=== PATIENT | female | born 1950 | race Hispanic/Latino ===

== ENCOUNTER 2016-09-29 11:47 | Emergency (ER) | payer MEDICAID ==
[~2016-09-29] VITALS: Ht 157.5 cm; Wt 49.9 kg
[2016-09-29] MEDS ORDERED: MIRTAZAPINE15 MG ORAL (12:34)
[2016-09-29] MEDS ORDERED: ACETAMINOPHEN325 M1 ORAL (12:34)
[2016-09-29] MEDS ORDERED: ATIVAN1 MG ORAL (12:34)
[2016-09-29] MEDS ORDERED: MILK OF MA400 MG/51 ORAL (12:34)
[2016-09-29] MEDS ORDERED: DOCUSATE SODIU100 MG ORAL (12:34)
[2016-09-29] MEDS ORDERED: SYNTHROID100 MCG ORAL (12:34)
[2016-09-29] MEDS ORDERED: HALOPERIDOL1 MG ORAL (12:34)
[2016-09-29] MEDS ORDERED: GLYBURIDE5 MG PO (12:34)
[2016-09-29] MEDS ORDERED: LORazepam Inj 2mg/ml 1ml IM ONE ×2 (13:15→18:45)
[2016-09-29] MEDS ORDERED: DiphenhydrAMINE 50mg/ml Inj ONE (13:36)
[2016-09-29] MEDS ORDERED: Haloperidol 5mg/ml Inj ONE (13:36)
[2016-09-29] MEDS ORDERED: DiphenhydrAMINE 50mg/ml Inj IM ONE (14:00)
[2016-09-29] MEDS ORDERED: Haloperidol 5mg/ml Inj IM ONE (14:00)
--- NOTE | 2016-09-29 15:24 | Diagnostic Imaging Report ---
Indication: PAIN head trauma status post fall at care home Technique: spiral acquisitions obtained through the brain. Angled axial and coronal 5 x 5 mm slices were reconstructed. No IV contrast utilized. Radiation dose was minimized using automated exposure control Total dose length product 1386 mGycm. CTDIvol(s) 12/12/2013 mGy Comparison: 12/12/2013 FINDINGS: No acute hemorrhage or edema. No mass effect or midline shift. There is age-related enlargement of the ventricles and extra axial CSF spaces. There is periventricular deep white matter ischemic change. Questionable lacunar infarct in left basal ganglia. Normal juares-white differentiation. Visualized orbits are unremarkable. Visualized sinuses are unremarkable. Intact calvarium. Increased attenuation of the left posterior parietal soft tissues is evident previously and therefore presumed on the basis of chronic scarring. No definite acute soft tissue abnormality demonstrated. There is hypoaeration of the mastoid air cells bilaterally. The visualized sinuses are unremarkable. IMPRESSION: Chronic and age-related changes. Negative for acute intracranial bleed or mass effect The CT scanner at [facility] is accredited by the [employer] and the scans are performed using protocols designed to limit radiation exposure to as low as reasonably achievable to attain images of sufficient resolution adequate for diagnostic evaluation
[2016-09-29 15:51] VITALS: BP 107/73
--- NOTE | 2016-09-29 16:13 | Emergency Room Report ---
History of Present Illness General Chief Complaint: General Complaint Source: Patient, Medical Record Present Illness HPI 65-year-old female presents emergency department for new onset swelling to the posterior scalp and complain of right knee pain. Pt is unable to rate her severity of pain. in uzbek she states her right knee "hurts a lot" she denies pain to the posterior scalp despite palpable soft tissue swelling. Patient was from nursing facility where she apparently fell out of the bed. Patient has a history of paranoid schizophrenia, dementia, agitation, failure to thrive type 2 diabetes and depression. She and is an unreliable historian, therefore a HPI and ROS is limited. information was gathered from nursing facility face-sheet. Allergies: Coded Allergies: PENICILLINS (Verified Allergy, Mild, 06/13/13) Patient History Past Medical History: see triage record, psych hx Pertinent Family History: none Now: No Immunizations: UTD Reviewed Nursing Documentation: PMH: Agreed, PSxH: Agreed Nursing Documentation-PMH Past Medical History: No History, Except For Hx Pacemaker: No - FTT, OA, ANEMIA Hx Diabetes: Yes - THIS AM BS 152 Hx Gastrointestinal Problems: Yes - REFLUX, Hx Seizures: Yes Review of Systems All Other Systems: limited - pt is a poor historian, with hx of paranoid schizophrenia, and does not answer questions completely. Physical Exam Vital Signs Date Time Temp Pulse Resp B/P Pulse Ox O2 Delivery O2 Flow Rate FiO2 09/29/16 11:53 98.2 96 18 140/82 97 Room Air Sp02 EP Interpretation: reviewed, normal General Appearance: no apparent distress, alert, GCS 15, non-toxic Head: normocephalic, other - palpable soft tissue swelling to the left posterior occipital area Eyes: bilateral eye PERRL, bilateral eye normal inspection ENT: hearing grossly normal, normal pharynx, no angioedema, normal voice Neck: full range of motion, supple/symm/no masses Respiratory: chest non-tender, lungs clear, normal breath sounds, speaking full sentences Cardiovascular #1: regular rate, rhythm, no edema, normal capillary refill Musculoskeletal: back normal, gait/station normal, normal range of motion, tender - the anterior right knee, pt. withdrawls with palpation and screams "dolor" no erythema, no swelling, no bruises, no swelling or abrasions Neurologic: alert, responsive, motor strength/tone normal, sensory intact, speech normal Psychiatric: mood/affect normal, anxious, other - pt has rambling speech, does not answer questions appropriately, difficult to maintain attention. Skin: normal color, no rash, warm/dry, well hydrated, other - palpable soft tissue swelling to the left posterior occipital area, no bruises, no erythema, no abrasions noted. Medical Decision Making PA Attestation Dr. Sullivan is my supervising Physician whom patient management has been discussed with. Diagnostic Impression: Primary Impression: Contusion Qualified Codes: S00.93XA - Contusion of unspecified part of head, initial encounter ER Course 65-year-old female presents emergency department for new onset swelling to the posterior scalp and complain of right knee pain. Pt is unable to rate her severity of pain. in uzbek she states her right knee "hurts a lot" she denies pain to the posterior scalp despite palpable soft tissue swelling. Patient was from nursing facility where she apparently fell out of the bed. Patient has a history of paranoid schizophrenia, dementia, agitation, failure to thrive type 2 diabetes and depression. She and is an unreliable historian, therefore a HPI and ROS is limited. information was gathered from nursing facility face-sheet. Ddx considered but are not limited to Fracture, dislocation, contusion, Sprain/ Strain/Spasm, subdural hematoma, intracranial bleed Vital signs: are WNL, pt. is afebrile H&PE are most consistent with soft tissue contusions. ORDERS: - CT Head No Contrast: No evidence of acute fracture, hemorrhage, or intracranial process, chronic age-related changes Per: official radiology report. - X-ray Right knee 5 views - Limited study, negative for fx, Dislocation, or acute injury per official radiology report. ED INTERVENTIONS: - Ativan 2mg -benadryl 50mg -Haldol 5mg DISCHARGE: At this time pt. is stable for d/c back to nursing facility.. Will coordinate transport back and provide printed patient care instructions, and any necessary prescriptions. Care plan and follow up instructions have been discussed with the patient prior to discharge. Last Vital Signs Date Time Temp Pulse Resp B/P Pulse Ox O2 Delivery O2 Flow Rate FiO2 09/29/16 15:51 96.2 75 16 107/73 97 Room Air Disposition: ASSISTED LIVING Condition: Stable Scripts Acetaminophen* (TYLENOL EXTRA STRENGTH*) 500 Mg Tablet 500 MG ORAL Q6H Y for Pain Scale (6-10), #20 TAB 0 Refills Prov: Malgorzata Blandon 09/29/16 Referrals: NON PHYSICIAN (PCP) Patient Instructions: Contusion, [id number] Additional Instructions: Take medications as directed. Follow up with PCP in 3-5 days Return sooner to ED if new symptoms occur, or current symptoms become worse. - Please note that this Emergency Department Report was dictated using [employer] tower operator technology software, occasionally this can lead to erroneous entry secondary to interpretation by the dictation equipment. Malgorzata Blandon Sep 29, 2016 16:13
[2016-09-29] MEDS ORDERED: TYLENOL EXTRA500 MG ORAL (16:14)
[2016-09-29 17:16] VITALS: BP 105/71
[2016-09-29 17:20] VITALS: BP 105/71
--- NOTE | 2016-09-30 08:31 | Diagnostic Imaging Report ---
Indication: PAIN Technique: 3 views of the right knee Comparison: None Findings:Exam is very limited, as patient was unable to extend the knee. No definite acute fractures. No definite dislocations. The joint spaces are grossly preserved Impression:Very limited exam. No gross acute bony trauma
== END 2016-09-29 19:29 | disposition home or self-care (01) ==
LOC: EDBD 11:47 → EMR 12:28
DX: S00.03XA Contusion of scalp, initial encounter (principal); M25.561 Pain in right knee; W06.XXXA Fall from bed, initial encounter; Y92.122 Bedroom in nursing home as the place of occurrence of the external cause; E11.9 Type 2 diabetes mellitus without complications; K21.9 Gastro-esophageal reflux disease without esophagitis; D64.9 Anemia, unspecified; R62.7 Adult failure to thrive; Z88.0 Allergy status to penicillin; F20.0 Paranoid schizophrenia
CPT/HCPCS: 70450; 73562; 96372; 99284; J1200; J1630

== ENCOUNTER 2018-04-18 16:46 | Inpatient (IN) | payer MEDICAID ==
[~2018-04-18] VITALS: Ht 157.5 cm; Wt 44.9 kg
[~2018-04-18 16:46] MED LIST: ACETAMINOPHEN325 M1 ORAL; ATIVAN1 MG ORAL; DOCUSATE SODIU100 MG ORAL; GLYBURIDE5 MG PO; HALOPERIDOL1 MG ORAL; MILK OF MA400 MG/51 ORAL; MIRTAZAPINE15 MG ORAL; SYNTHROID100 MCG ORAL; TYLENOL EXTRA500 MG ORAL
[2018-04-18 16:50] VITALS: BP 156/112
[2018-04-18] MEDS ORDERED: LORazepam Inj 2mg/ml 1ml ONE (17:00)
[2018-04-18] MEDS ORDERED: LORazepam Inj 2mg/ml 1ml IM ONE (17:00)
[2018-04-18] MEDS ORDERED: DiphenhydrAMINE 50mg/ml Inj IM ONE (17:00)
[2018-04-18] MEDS ORDERED: DiphenhydrAMINE 50mg/ml Inj ONE (17:01)
[2018-04-18] MEDS ORDERED: MULTIVITAMINS1 EAC8 ORAL (17:28)
[2018-04-18] MEDS ORDERED: CRANBERRY405 M1 PO (17:28)
--- NOTE | 2018-04-18 17:29 | Emergency Room Report ---
History of Present Illness General Chief Complaint: Altered Level of Consciousness Source: Medical Record, EMS Present Illness HPI 67-year-old female who has a history of anemia diabetes major depressive disorder. Schizophrenia presenting from custodial for failure to thrive, has been refusing medications as well as refusing to eat. Reportedly has not lost a lot of weight. Patient is screaming, extremely combative, not providing much history at all Allergies: Coded Allergies: PENICILLINS (Verified Allergy, Mild, 06/13/13) Patient History Past Medical History: see triage record Past Surgical History: none Pertinent Family History: none Now: No Reviewed Nursing Documentation: PMH: Agreed; PSxH: Agreed Nursing Documentation-PMH Past Medical History: No History, Except For Hx Pacemaker: No - FTT, OA, ANEMIA Hx Diabetes: Yes Hx Gastrointestinal Problems: Yes - REFLUX, Hx Seizures: Yes Review of Systems All Other Systems: limited - pt not giving history/psychotic Physical Exam Sp02 EP Interpretation: reviewed, normal General Appearance: alert, moderate distress, cachetic Head: normocephalic, atraumatic Eyes: bilateral eye normal inspection, bilateral eye PERRL, bilateral eye EOMI ENT: normal ENT inspection, normal pharynx, normal voice, moist mucus membranes Neck: normal inspection, full range of motion, supple Respiratory: normal inspection, lungs clear, normal breath sounds, no respiratory distress, no retraction, no wheezing, speaking full sentences, chest symmetrical Cardiovascular #1: tachycardia Cardiovascular #2: 2+ radial (R), 2+ radial (L) Gastrointestinal: normal inspection, non tender, soft, non-distended, no guarding Musculoskeletal: normal inspection, back normal, normal range of motion, non- tender Neurologic: other - aox1 not giving history, combative/hitting staff, moving all four ext Psychiatric: other - anxious and psychotic Skin: normal inspection, normal color, no rash, warm/dry, well hydrated, normal turgor Medical Decision Making Diagnostic Impression: Primary Impression: UTI (urinary tract infection) Additional Impressions: Altered mental status Sepsis ER Course 59-year-old female, failure to thrive, para Schizophrenia also very agitated and psychotic DDX: Dehydration, R disturbance, UTI, infection, intracranial bleed, exacerbation of psychiatric disease/psychosis Plan: Obtain labs, ua, EKG, CXR CT head ER course: got abx for UTI and fluids Disposition: Patient is to be admitted to [facility] D/W hospitalist DR BARBOSA Please note that this Emergency Department Report was dictated using [employer] pediatric technology software, occasionally this can lead to erroneous entry secondary to interpretation by the dictation equipment. EKG Diagnostic Results EP Interpretation: Yes Rate: tachy Rhythm: NSR ST Segments: No acute changes ASA given to patient: No Rhythm Strip EP Interpretation: Yes Rate:116 Rhythm: NSR, no PVCs, no ectopy Chest X-ray CXR: Ordered: Yes 1 view Indication: Altered mental status EP interpretation: Yes Interpretation: No consolidation, no effusion, no PTX, no acute cardiopulmonary disease Impression: No acute disease Electronically signed by Augusto Fernandez MD Laboratory Tests Test 04/18/18 17:10 White Blood Count 10.3 K/UL (4.8-10.8) Red Blood Count 5.03 M/UL (4.20-5.40) Hemoglobin 15.5 G/DL (12.0-16.0) Hematocrit 45.7 % (37.0-47.0) Mean Corpuscular Volume 91 FL (80-99) Mean Corpuscular Hemoglobin 30.8 PG (27.0-31.0) Mean Corpuscular Hemoglobin Concent 33.9 G/DL (32.0-36.0) Red Cell Distribution Width 12.0 % (11.6-14.8) Platelet Count 362 K/UL (150-450) Mean Platelet Volume 7.0 FL (6.5-10.1) Neutrophils (%) (Auto) 51.9 % (45.0-75.0) Lymphocytes (%) (Auto) 39.4 % (20.0-45.0) Monocytes (%) (Auto) 5.0 % (1.0-10.0) Eosinophils (%) (Auto) 2.7 % (0.0-3.0) Basophils (%) (Auto) 1.1 % (0.0-2.0) Urine Color Brown Urine Appearance Slightly cloudy Urine pH 6 (4.5-8.0) Urine Specific [place] 1.025 (1.005-1.035) Urine Protein 2+ (NEGATIVE) H Urine Glucose (UA) Negative (NEGATIVE) Urine Ketones 3+ (NEGATIVE) H Urine Blood 2+ (NEGATIVE) H Urine Nitrite Positive (NEGATIVE) H Urine Bilirubin 1+ (NEGATIVE) H Urine Ictotest Negative (NEGATIVE) Urine Urobilinogen 8 MG/DL (0.0-1.0) H Urine Leukocyte Esterase 1+ (NEGATIVE) H Urine RBC 5-10 /HPF (0 - 2) H Urine WBC 2-4 /HPF (0 - 2) Urine Squamous Epithelial Cells Few /LPF (NONE/OCC) Urine Amorphous Sediment Few /LPF (NONE) H Urine Bacteria Many /HPF (NONE) H Sodium Level 148 MMOL/L (136-145) H Potassium Level 4.8 MMOL/L (3.5-5.1) Chloride Level 106 MMOL/L (98-107) Carbon Dioxide Level 27 MMOL/L (21-32) Anion Gap 16 mmol/L (5-15) H Blood Urea Nitrogen 22 mg/dL (7-18) H Creatinine 0.9 MG/DL (0.55-1.30) Estimate Glomerular Filtration Rate > 60 mL/min (>60) Glucose Level 89 MG/DL (74-106) Lactic Acid Level 4.60 mmol/L (0.4-2.0) H Calcium Level 10.9 MG/DL (8.5-10.1) H Total Bilirubin 0.6 MG/DL (0.2-1.0) Aspartate Amino Transferase (AST) 22 U/L (15-37) Alanine Aminotransferase (ALT) 23 U/L (12-78) Alkaline Phosphatase 97 U/L (46-116) Total Creatine Kinase 63 U/L (26-308) Troponin I 0.000 ng/mL (0.000-0.056) Total Protein 8.5 G/DL (6.4-8.2) H Albumin 4.1 G/DL (3.4-5.0) Globulin 4.4 g/dL Albumin/Globulin Ratio 0.9 (1.0-2.7) L CT/MRI/US Diagnostic Results CT/MRI/US Diagnostic Results : Imaging Test Ordered: CT HEAD Impression NEGATIVE Disposition: ADMITTED INPATIENT Condition: Augusto Kapadia M.D. Apr 18, 2018 17:29
[2018-04-18 17:31] LABS: APPEARANCE,URINE SLIGHTLY CLOUDY; BILIRUBIN, URINE 1+ (NEGATIVE); COLOR,URINE BROWN; GLUCOSE, URINE (UA) NEGATIVE (NEGATIVE); KETONES,URINE 3+ (NEGATIVE); LEUKOCYTE ESTERASE ,URINE 1+ (NEGATIVE); NITRITE,URINE POSITIVE (NEGATIVE); PH,URINE 6 (4.5-8.0); PROTEIN,URINE 2+ (NEGATIVE); UROBILINOGEN,URINE 8 MG/DL (0.0-1.0)
[2018-04-18 17:33] LABS: BASOPHILS % (AUTO) 1.1 % (0.0-2.0); EOSINOPHILS % (AUTO) 2.7 % (0.0-3.0); HEMATOCRIT 45.7 % (37.0-47.0); HEMOGLOBIN 15.5 G/DL (12.0-16.0); LYMPHOCYTES % (AUTO) 39.4 % (20.0-45.0); MEAN CORPUSCULAR VOLUME 91 FL (80-99); NEUTROPHILS % (AUTO) 51.9 % (45.0-75.0); PLATELET COUNT 362 K/UL (150-450); RED BLOOD COUNT 5.03 M/UL (4.20-5.40); WHITE BLOOD COUNT 10.3 K/UL (4.8-10.8)
[2018-04-18 18:01] LABS: ALANINE AMINOTRANSFERASE 23 U/L (12-78); ALBUMIN 4.1 G/DL (3.4-5.0); ALBUMIN/GLOBULIN RATIO 0.9 (1.0-2.7); ALKALINE PHOSPHATASE 97 U/L (46-116); ANION GAP 16 mmol/L (5-15); ASPARTATE AMINO TRANSFERASE 22 U/L (15-37); BILIRUBIN,TOTAL 0.6 MG/DL (0.2-1.0); BLOOD UREA NITROGEN 22 mg/dL (7-18); CALCIUM 10.9 MG/DL (8.5-10.1); CARBON DIOXIDE 27 MMOL/L (21-32); CHLORIDE 106 MMOL/L (98-107); CREATINE KINASE 63 U/L (26-308); CREATININE 0.9 MG/DL (0.55-1.30); POTASSIUM 4.8 MMOL/L (3.5-5.1); SODIUM 148 MMOL/L (136-145)
[2018-04-18 19:16] VITALS: BP 111/64
[2018-04-18] MEDS ORDERED: cefTRIAXone 1 GM in NS 55 ML IVPB ONE (19:30)
[2018-04-18 21:01] VITALS: BP 108/64
[2018-04-18 21:54] VITALS: BP 116/84
[2018-04-18] MEDS ORDERED: LORazepam Inj 2mg/ml 1ml IM PRN (23:45)
[2018-04-18] MEDS ORDERED: Milk of Magnesia 30ml Ud ORAL PRN (23:45)
[2018-04-18] MEDS ORDERED: LORazepam Inj 2mg/ml 1ml IV PRN (23:45)
[2018-04-19] VITALS: BP 108/66
[2018-04-19] MEDS: LORazepam Inj 2mg/ml 1ml IM PRN ×2 (03:57→10:27)
[2018-04-19 04:00] VITALS: BP 114/69
[2018-04-19] MEDS: Haloperidol 5mg/ml Inj IM PRN ×2 (05:11→10:26)
[2018-04-19] MEDS: NovoLOG Insulin Flexpen SUBQ SCH ×4 (06:30→21:15)
[2018-04-19 08:23] LABS: BASOPHILS % (AUTO) 0.7 % (0.0-2.0); EOSINOPHILS % (AUTO) 2.6 % (0.0-3.0); HEMATOCRIT 38.5 % (37.0-47.0); LYMPHOCYTES % (AUTO) 27.8 % (20.0-45.0); MEAN CORPUSCULAR VOLUME 91 FL (80-99); MONOCYTES % (AUTO) 5.1 % (1.0-10.0); NEUTROPHILS % (AUTO) 63.8 % (45.0-75.0); PLATELET COUNT 263 K/UL (150-450); RED BLOOD COUNT 4.21 M/UL (4.20-5.40); RED CELL DISTRIBUTION WIDTH 12.1 % (11.6-14.8); WHITE BLOOD COUNT 7.1 K/UL (4.8-10.8)
[2018-04-19] MEDS: Heparin 5000 units/ml inj SUBQ SCH ×2 (08:32→21:39)
[2018-04-19] MEDS: Multivitamins W/Minerals 15 ML UDC ORAL SCH (08:32)
[2018-04-19] MEDS: Docusate 100mg cap ORAL SCH (08:33)
[2018-04-19 08:45] LABS: ALANINE AMINOTRANSFERASE 16 U/L (12-78); ALBUMIN 3.3 G/DL (3.4-5.0); ALBUMIN/GLOBULIN RATIO 0.8 (1.0-2.7); ALKALINE PHOSPHATASE 82 U/L (46-116); ANION GAP 10 mmol/L (5-15); ASPARTATE AMINO TRANSFERASE 21 U/L (15-37); BILIRUBIN,TOTAL 0.4 MG/DL (0.2-1.0); BLOOD UREA NITROGEN 19 mg/dL (7-18); CALCIUM 9.6 MG/DL (8.5-10.1); CARBON DIOXIDE 27 MMOL/L (21-32); CHLORIDE 107 MMOL/L (98-107); CREATININE 0.8 MG/DL (0.55-1.30); POTASSIUM 4.4 MMOL/L (3.5-5.1); SODIUM 144 MMOL/L (136-145)
[2018-04-19 08:56] VITALS: BP 130/69
--- NOTE | 2018-04-19 09:17 | Diagnostic Imaging Report ---
Indications: Altered mental status Technique: Spiral acquisitions obtained through the brain. Angled axial and coronal 5 x 5 mm slices were reconstructed. Total dose length product 1393.68 mGycm. CTDI vol(s) 70.38 mGy. Dose reduction achieved using automated exposure control Comparison: 12/12/2013 Findings: There is age-related enlargement of the ventricles and extra axial CSF spaces. There is some periventricular deep white matter low-attenuation. No acute intracranial hemorrhage or edema. No mass effect nor midline shift. Previously demonstrated scalp contusion is no longer evident. The mastoids are underpneumatized. There is calvarial hyperostosis again demonstrated. Calvarium is intact. Visualized orbits and sinuses are unremarkable. Impression: Age-related volume loss Negative for acute intracranial bleed or mass effect This agrees with the preliminary interpretation provided by the emergency room physician The CT scanner at [facility] is accredited by the [employer] and the scans are performed using protocols designed to limit radiation exposure to as low as reasonably achievable to attain images of sufficient resolution adequate for diagnostic evaluation.
--- NOTE | 2018-04-19 11:28 | Diagnostic Imaging Report ---
Indication: Reason For Exam: AMS Technique: One view of the chest Comparison: Findings: Lungs and pleural spaces are clear. Heart size is normal Impression: No acute process
[2018-04-19 12:00] VITALS: BP 108/75
[2018-04-19 16:00] VITALS: BP 110/72
--- NOTE | 2018-04-19 16:34 | Cardiology Report ---
APPROVED REPORT EKG Measurement Heart [id number] Normal sinus rhythm Normal ECG
[2018-04-19 20:00] VITALS: BP 115/74
--- NOTE | 2018-04-19 20:45 | History and Physical Report ---
DATE OF ADMISSION: 04/19/2018 CHIEF COMPLAINT: Patient with altered mental status, tachycardia, and hypotension. HISTORY OF PRESENT ILLNESS: A pleasant 67-year-old female with extensive past medical history, which includes psychosis, diabetes, and major depression had been refusing to eat and has been refusing medication also. She is diabetic and on evaluation, the patient was found to be tachycardia with heart rate greater than 150 and hypovolemic and had urinary tract infection and was started on Rocephin and subsequently admitted for further evaluation and treatment. The patient has been very psychotic and not cooperate. The patient does not have any history of PE or DVT. No melena. No known malignancy. No significant change in her weight. PAST MEDICAL HISTORY: Significant for diabetes as mentioned and depression, anemia, schizophrenia. MEDICATIONS: The patient was on Colace 100 mg p.o. daily, multivitamin daily, insulin sliding scale, and also glyburide 5 mg p.o. daily, levothyroxine 100 mcg p.o. daily, Lorazepam 1 mg q.4 hours p.r.n., and Tylenol p.r.n. ALLERGIES: Penicillin. Reaction is mild dating back to 06/13/2013. FAMILY HISTORY: Not available. REVIEW OF SYSTEMS: Cannot be obtained. PHYSICAL EXAM: VITAL SIGNS: Temperature is 97.4, pulse of 63, respiratory rate of 20, blood pressure 114/69, and O2 saturation 97%. HEENT: Pupils equal, round, and reactive. Conjunctiva clear. Oropharynx, dry mucous membranes. NECK: No jugular venous distention. Trachea midline. LYMPHATICS: No adenopathy. LUNGS: Clear to auscultation. No wheezing. CARDIOVASCULAR: Regular rate. S1 and S2. ABDOMEN: Soft. Bowel sounds present. EXTREMITIES: Mild contracture. NEUROLOGIC: Localizes to pain. Does not follow commands. RECTAL AND GENITAL: Deferred. SKIN: Intact. LABORATORY DATA: WBC was 10.3, hemoglobin 13.5, and platelet count of 362,000. Her chemistry, sodium 148, potassium 4.9, chloride 106, bicarb of 27, BUN of 22, creatinine of 0.9, glucose 89, and calcium 10.9. AST 22, ALT 23, and alkaline phosphatase 97. Troponin 0. Protein 8.5. Albumin 4.1. Her chest x-ray, no acute infiltrate. She had a CT of the head done and there was no acute process seen. No intracranial bleed or mass effect. She did have age-related volume loss. On her UA, she had positive nitrites and leukocyte esterase was positive. She had 5 to 10 rbc and 2 to 4 wbc. IMPRESSION: 1. Worsening psychosis. 2. Failure to thrive. 3. Hypovolemia. 4. Altered mental status. 5. Diabetes mellitus. 6. Constipation. 7. Hypothyroidism. 8. Tachycardia secondary to hypovolemia. PLAN: The patient will have intravenous hydration and we will obtain Psychiatry consult. The patient may need a G-tube. She will also be on DVT prophylaxis with heparin. Isaias Christopher M.D. DR: OLGA JOB#: [id number] CC:
[2018-04-19] MEDS: D5 1/2NS 1,000 ML IV SCH (21:38)
--- NOTE | 2018-04-19 21:45 | History and Physical Report ---
DATE OF ADMISSION: 04/18/2018 NOTE: INCOMPLETE DICTATION CHIEF COMPLAINT: The patient with tachycardia, confusion, and urinary tract infection. HISTORY OF PRESENT ILLNESS: A 67-year-old female, whom I have known for the past 10 years, was at prison when she developed altered mental status with tachycardia, heart rate greater than 150, hypotension, and was septic when admitted to the emergency room. Isaias Christopher M.D. DR: OLGA JOB#: [id number] CC:
--- NOTE | 2018-04-19 23:05 | Consultation ---
History of Present Illness General Chief Complaint: Altered Level of Consciousness Present Illness HPI 67-year-old female who has a history of anemia diabetes,Schizophrenia, and depression presenting from half-way for failure to thrive, has been refusing medications and to eat. The pt was agitated and disorganized the pt is not taking her medications nor eating. the daughter is involved in her care. She stated that the pt has hx of mental illness. the pt is still in restraints. Allergies: Coded Allergies: PENICILLINS (Verified Allergy, Mild, 06/13/13) Medication History Scheduled Glyburide (Glyburide), 5 MG PO DAILY, (Reported) Levothyroxine Sodium* (Synthroid*), 100 MCG ORAL DAILY, (Reported) Multivitamin With Minerals (Multivitamins With Minerals*), 1 TAB ORAL DAILY, ( Reported) Scheduled PRN Acetaminophen* (Acetaminophen 325MG Tablet*), 650 MG ORAL Q4H PRN for For Pain, (Reported) Acetaminophen* (Tylenol Extra Strength*), 500 MG ORAL Q6H PRN for Pain Scale (6- 10) Docusate Sodium* (Docusate Sodium*), 100 MG ORAL DAILY PRN for Constipation, ( Reported) Magnesium Hydroxide* (Milk Of Magnesia*), 30 ML ORAL DAILY PRN for Constipation, (Reported) Miscellaneous Medications Cranberry Extract (Cranberry), 405 MG PO, (Reported) Discontinued Medications Haloperidol* (Haldol*), 2.5 MG ORAL BID PRN for Agitation, (Reported) Discontinued Reason: MD discontinued med Lorazepam* (Ativan*), 1 MG ORAL EVERY 12 HOURS PRN for For Anxiety, (Reported) Discontinued Reason: MD discontinued med Mirtazapine* (Remeron*), 15 MG ORAL BEDTIME, (Reported) Discontinued Reason: Pt stopped taking med Patient History Limited by: language barrier, medical condition History Provided By: Patient, Medical Record, PMD Healthcare decision maker Silke Méndez, daughter Resuscitation status Full Code Advanced Directive on File No Past Medical/Surgical History Past Medical/Surgical History: (1) Hypokalemia (2) Schizophrenia (3) Encounter for generalized patient complaints (4) Contusion (5) Dehydration (6) Failure to thrive (7) Severe malnutrition (8) Encounter for PEG (percutaneous endoscopic gastrostomy) Review of Systems Psychiatric: Reports: anxiety, depressed feelings, emotional problems, hallucinations Physical Exam General Appearance: alert, confused, agitated Last 24 Hour Vital Signs Date Time Temp Pulse Resp B/P (MAP) Pulse Ox O2 Delivery O2 Flow Rate FiO2 04/19/18 16:00 97.0 70 19 110/72 (85) 99 04/19/18 16:00 70 04/19/18 12:00 87 04/19/18 12:00 97.0 98 20 108/75 (86) 98 04/19/18 09:00 Room Air 04/19/18 08:56 97.0 72 19 130/69 (89) 98 04/19/18 08:00 86 04/19/18 04:00 97.4 88 20 114/69 (84) 97 04/19/18 04:00 63 04/19/18 00:00 97.7 68 17 108/66 (80) 97 04/19/18 00:00 66 Intake and Output 04/18/18 04/19/18 19:00 07:00 Intake Total 240 ml Balance 240 ml Intake Oral 240 ml # Voids 1 Laboratory Tests Test 04/19/18 07:25 White Blood Count 7.1 K/UL (4.8-10.8) Red Blood Count 4.21 M/UL (4.20-5.40) Hemoglobin 13.0 G/DL (12.0-16.0) Hematocrit 38.5 % (37.0-47.0) Mean Corpuscular Volume 91 FL (80-99) Mean Corpuscular Hemoglobin 30.9 PG (27.0-31.0) Mean Corpuscular Hemoglobin Concent 33.7 G/DL (32.0-36.0) Red Cell Distribution Width 12.1 % (11.6-14.8) Platelet Count 263 K/UL (150-450) Mean Platelet Volume 6.9 FL (6.5-10.1) Neutrophils (%) (Auto) 63.8 % (45.0-75.0) Lymphocytes (%) (Auto) 27.8 % (20.0-45.0) Monocytes (%) (Auto) 5.1 % (1.0-10.0) Eosinophils (%) (Auto) 2.6 % (0.0-3.0) Basophils (%) (Auto) 0.7 % (0.0-2.0) Sodium Level 144 MMOL/L (136-145) Potassium Level 4.4 MMOL/L (3.5-5.1) Chloride Level 107 MMOL/L (98-107) Carbon Dioxide Level 27 MMOL/L (21-32) Anion Gap 10 mmol/L (5-15) Blood Urea Nitrogen 19 mg/dL (7-18) H Creatinine 0.8 MG/DL (0.55-1.30) Estimat Glomerular Filtration Rate > 60 mL/min (>60) Glucose Level 90 MG/DL (74-106) Hemoglobin A1c 6.7 % (4.3-6.0) H Calcium Level 9.6 MG/DL (8.5-10.1) Total Bilirubin 0.4 MG/DL (0.2-1.0) Aspartate Amino Transf (AST/SGOT) 21 U/L (15-37) Alanine Aminotransferase (ALT/SGPT) 16 U/L (12-78) Alkaline Phosphatase 82 U/L (46-116) Total Protein 7.4 G/DL (6.4-8.2) Albumin 3.3 G/DL (3.4-5.0) L Globulin 4.1 g/dL Albumin/Globulin Ratio 0.8 (1.0-2.7) L Height (Feet): 5 Height (Inches): 2.00 Weight (Pounds): 99 Medications Current Medications Medications (Trade) Dose Ordered Sig/Shanta Route PRN Reason Start Time Stop Time Status Last Admin Dose Admin Acetaminophen (Tylenol) 650 mg Q4H PRN ORAL Mild Pain/Temp > 100.5 04/18/18 23:45 05/18/18 23:44 Dextrose (Dextrose 50%) 25 ml Q30M PRN IV Hypoglycemia 04/18/18 23:45 05/18/18 23:44 Dextrose (Dextrose 50%) 50 ml Q30M PRN IV Hypoglycemia 04/18/18 23:45 05/18/18 23:44 04/19/18 16:58 Dextrose/Sodium Chloride 1,000 ml @ 100 mls/hr Q10H IV 04/19/18 19:15 05/19/18 19:14 04/19/18 21:38 Docusate Sodium (Colace) 100 mg DAILY ORAL 04/19/18 09:00 05/19/18 08:59 Glyburide (Diabeta) 5 mg BIAC ORAL 04/19/18 06:30 05/19/18 06:29 Haloperidol Lactate (Haldol) 5 mg Q4HR PRN IM Agitation 04/18/18 23:45 05/18/18 23:44 04/19/18 10:26 Heparin Sodium (Porcine) (Heparin 5000 units/ml) 5,000 units EVERY 12 HOURS SUBQ 04/19/18 09:00 05/19/18 08:59 04/19/18 21:39 Insulin Aspart (NovoLOG) BEFORE MEALS AND HS SUBQ 04/19/18 06:30 05/19/18 06:29 Levothyroxine Sodium (Synthroid) 100 mcg DAILY@0630 ORAL 04/19/18 06:30 05/19/18 06:29 Lorazepam (Ativan 2mg/ml 1ml) 1 mg Q4H PRN IV Restlessness 04/19/18 03:45 04/25/18 23:44 Lorazepam (Ativan 2mg/ml 1ml) 2 mg Q4H PRN IM For Anxiety 04/19/18 03:45 04/25/18 23:44 04/19/18 10:27 Magnesium Hydroxide (Mom) 30 ml HSPRN PRN ORAL Constipation 04/18/18 23:45 05/18/18 23:44 Multivitamins (Multivitamins W/ Minerals 15ml Liquid) 15 ml DAILY ORAL 04/19/18 09:00 05/19/18 08:59 Ondansetron HCl (Zofran) 4 mg Q6H PRN IVP Nausea & Vomiting 04/18/18 23:45 05/18/18 23:44 Assessment/Plan Problem List: (1) Failure to thrive (2) Schizophrenia Assessment/Plan haldol im prn zyprexa haldol dec cont restraints. Birdie Fortune MD Apr 19, 2018 23:05
[2018-04-20] VITALS: BP 139/73
[2018-04-20] MEDS: OLANZapine 2.5mg tab ORAL SCH ×4 (00:06→17:39)
[2018-04-20] MEDS: LORazepam Inj 2mg/ml 1ml IV PRN (01:59)
[2018-04-20 04:00] VITALS: BP 133/62
[2018-04-20] MEDS: D5 1/2NS 1,000 ML IV SCH ×2 (05:15→12:25)
[2018-04-20] MEDS: NovoLOG Insulin Flexpen SUBQ SCH ×4 (06:23→21:39)
[2018-04-20 08:00] VITALS: BP 121/73
[2018-04-20 08:03] LABS: BASOPHILS % (AUTO) 0.8 % (0.0-2.0); EOSINOPHILS % (AUTO) 0.6 % (0.0-3.0); HEMATOCRIT 36.5 % (37.0-47.0); HEMOGLOBIN 12.5 G/DL (12.0-16.0); LYMPHOCYTES % (AUTO) 18.5 % (20.0-45.0); MEAN CORPUSCULAR VOLUME 89 FL (80-99); MONOCYTES % (AUTO) 4.2 % (1.0-10.0); NEUTROPHILS % (AUTO) 75.9 % (45.0-75.0); PLATELET COUNT 235 K/UL (150-450); RED BLOOD COUNT 4.08 M/UL (4.20-5.40); RED CELL DISTRIBUTION WIDTH 11.5 % (11.6-14.8); WHITE BLOOD COUNT 6.9 K/UL (4.8-10.8)
[2018-04-20 08:25] LABS: ALANINE AMINOTRANSFERASE 19 U/L (12-78); ALBUMIN 3.1 G/DL (3.4-5.0); ALBUMIN/GLOBULIN RATIO 0.8 (1.0-2.7); ALKALINE PHOSPHATASE 80 U/L (46-116); ANION GAP 12 mmol/L (5-15); ASPARTATE AMINO TRANSFERASE 22 U/L (15-37); BILIRUBIN,TOTAL 0.5 MG/DL (0.2-1.0); BLOOD UREA NITROGEN 8 mg/dL (7-18); CARBON DIOXIDE 23 MMOL/L (21-32); CHLORIDE 102 MMOL/L (98-107); CREATININE 0.6 MG/DL (0.55-1.30); POTASSIUM 3.1 MMOL/L (3.5-5.1); SODIUM 137 MMOL/L (136-145)
[2018-04-20] MEDS: Multivitamins W/Minerals 15 ML UDC ORAL SCH (09:00)
[2018-04-20] MEDS: Docusate 100mg cap ORAL SCH (09:00)
[2018-04-20] MEDS: Heparin 5000 units/ml inj SUBQ SCH ×2 (09:36→21:35)
--- NOTE | 2018-04-20 10:47 | GI Initial Consult Note ---
History of Present Illness General Date patient seen: Apr 20, 2018 Time patient seen: 10:40 Reason for Hospitalization: Altered Level of Consciousness Referring physician: STEWART Reason for Consultation: Failure to thrive Present Illness HPI 67-year-old female who has a history of anemia diabetes major depressive disorder. Schizophrenia presenting from [facility] for failure to thrive, has been refusing medications as well as refusing to eat. Reportedly has not lost a lot of weight. Patient is screaming, extremely combative, not providing much history at all. GI consulted for failure to thrive. ROS limited, patient agitated with a history of schizophrenia noted to be on restraints. Not providing any history. All information obtained from medical record. According to the report, the patient has been refusing all care, refusing medication and refusing to eat. In any attempts to provide care to talk to the patient, she becomes very agitated. Unknown history of endoscopic or colonoscopy at this time. Home Meds Active Scripts Acetaminophen* (TYLENOL EXTRA STRENGTH*) 500 Mg Tablet, 500 MG ORAL Q6H PRN for Pain Scale (6-10), #20 TAB 0 Refills Prov:Malgorzata Blandon 09/29/16 Reported Medications Multivitamin With Minerals (MULTIVITAMINS WITH MINERALS*) 1 Each Tablet, 1 TAB ORAL DAILY, TAB 04/18/18 Cranberry Extract (CRANBERRY) 405 Mg Capsule, 405 MG PO, CAP 04/18/18 Acetaminophen* (ACETAMINOPHEN 325MG TABLET*) 325 Mg Tablet, 650 MG ORAL Q4H PRN for For Pain, TAB 09/29/16 Levothyroxine Sodium* (SYNTHROID*) 100 Mcg Tablet, 100 MCG ORAL DAILY, TAB Take in the morning on an empty stomach, at least 30 minutes before food. 09/29/16 Magnesium Hydroxide* (MILK OF MAGNESIA*) 400 Mg/5 Ml Oral.susp, 30 ML ORAL DAILY PRN for Constipation, ML 09/29/16 Glyburide (GLYBURIDE) 5 Mg Tablet, 5 MG PO DAILY, TAB 09/29/16 Docusate Sodium* (DOCUSATE SODIUM*) 100 Mg Capsule, 100 MG ORAL DAILY PRN for Constipation, CAP 09/29/16 Discontinued Reported Medications Mirtazapine* (REMERON*) 15 Mg Tablet, 15 MG ORAL BEDTIME, TAB 09/29/16 Haloperidol* (HALDOL*) 1 Mg Tablet, 2.5 MG ORAL BID PRN for Agitation, #20 TAB 0 Refills 09/29/16 Lorazepam* (ATIVAN*) 1 Mg Tablet, 1 MG ORAL EVERY 12 HOURS PRN for For Anxiety, TAB 09/29/16 Med list reviewed/reconciled: Yes Allergies: Coded Allergies: PENICILLINS (Verified Allergy, Mild, 06/13/13) Patient History Limited by: medical condition History Provided By: Medical Record PMH Narrative Past Medical History: see triage record Past Surgical History: none Pertinent Family History: none Now: No Reviewed Nursing Documentation: PMH: Agreed; PSxH: Agreed Nursing Documentation-PMH Past Medical History: No History, Except For Hx Pacemaker: No - FTT, OA, ANEMIA Hx Diabetes: Yes Hx Gastrointestinal Problems: Yes - REFLUX, Hx Seizures: Yes Review of Systems All Other Systems: limited Physical Exam Vital Signs Date Time Temp Pulse Resp B/P (MAP) Pulse Ox O2 Delivery O2 Flow Rate FiO2 04/18/18 16:50 98.0 130 28 156/112 97 Room Air Sp02 EP Interpretation: reviewed, normal Labs Laboratory Tests Test 04/20/18 07:35 White Blood Count 6.9 K/UL (4.8-10.8) Red Blood Count 4.08 M/UL (4.20-5.40) L Hemoglobin 12.5 G/DL (12.0-16.0) Hematocrit 36.5 % (37.0-47.0) L Mean Corpuscular Volume 89 FL (80-99) Mean Corpuscular Hemoglobin 30.6 PG (27.0-31.0) Mean Corpuscular Hemoglobin Concent 34.2 G/DL (32.0-36.0) Red Cell Distribution Width 11.5 % (11.6-14.8) L Platelet Count 235 K/UL (150-450) Mean Platelet Volume 6.5 FL (6.5-10.1) Neutrophils (%) (Auto) 75.9 % (45.0-75.0) H Lymphocytes (%) (Auto) 18.5 % (20.0-45.0) L Monocytes (%) (Auto) 4.2 % (1.0-10.0) Eosinophils (%) (Auto) 0.6 % (0.0-3.0) Basophils (%) (Auto) 0.8 % (0.0-2.0) Sodium Level 137 MMOL/L (136-145) Potassium Level 3.1 MMOL/L (3.5-5.1) L Chloride Level 102 MMOL/L (98-107) Carbon Dioxide Level 23 MMOL/L (21-32) Anion Gap 12 mmol/L (5-15) Blood Urea Nitrogen 8 mg/dL (7-18) Creatinine 0.6 MG/DL (0.55-1.30) Estimat Glomerular Filtration Rate > 60 mL/min (>60) Glucose Level 217 MG/DL (74-106) #H Calcium Level 9.0 MG/DL (8.5-10.1) Total Bilirubin 0.5 MG/DL (0.2-1.0) Aspartate Amino Transf (AST/SGOT) 22 U/L (15-37) Alanine Aminotransferase (ALT/SGPT) 19 U/L (12-78) Alkaline Phosphatase 80 U/L (46-116) Total Protein 7.1 G/DL (6.4-8.2) Albumin 3.1 G/DL (3.4-5.0) L Globulin 4.0 g/dL Albumin/Globulin Ratio 0.8 (1.0-2.7) L General Appearance: alert, thin Head: normocephalic EENT: PERRL/EOMI, normal ENT inspection Neck: supple Respiratory: normal breath sounds, no respiratory distress Cardiovascular: normal rate Gastrointestinal: normal inspection, non tender, soft, normal bowel sounds, non -distended Rectal: deferred Genitourinary: no CVA tenderness Musculoskeletal: normal inspection, back normal Neurologic: normal inspection, alert, responsive Skin: normal inspection, normal color, no rash, warm/dry, palpation normal, well hydrated Lymphatic: normal inspection, no adenopathy Current Medications Current Medications Medications (Trade) Dose Ordered Sig/Shanta Route PRN Reason Start Time Stop Time Status Last Admin Dose Admin Acetaminophen (Tylenol) 650 mg Q4H PRN ORAL Mild Pain/Temp > 100.5 04/18/18 23:45 05/18/18 23:44 Dextrose (Dextrose 50%) 25 ml Q30M PRN IV Hypoglycemia 04/18/18 23:45 05/18/18 23:44 Dextrose (Dextrose 50%) 50 ml Q30M PRN IV Hypoglycemia 04/18/18 23:45 2/7/19 23:44 04/19/18 16:58 Dextrose/Sodium Chloride 1,000 ml @ 100 mls/hr Q10H IV 04/19/18 19:15 05/19/18 19:14 04/19/18 21:38 Docusate Sodium (Colace) 100 mg DAILY ORAL 04/19/18 09:00 05/19/18 08:59 Glyburide (Diabeta) 5 mg BIAC ORAL 04/19/18 06:30 05/19/18 06:29 Haloperidol Lactate (Haldol) 5 mg Q4HR PRN IM Agitation 04/18/18 23:45 05/18/18 23:44 04/19/18 10:26 Heparin Sodium (Porcine) (Heparin 5000 units/ml) 5,000 units EVERY 12 HOURS SUBQ 04/19/18 09:00 05/19/18 08:59 04/20/18 09:36 Insulin Aspart (NovoLOG) BEFORE MEALS AND HS SUBQ 04/19/18 06:30 05/19/18 06:29 04/20/18 06:23 Levothyroxine Sodium (Synthroid) 100 mcg DAILY@0630 ORAL 04/19/18 06:30 05/19/18 06:29 Lorazepam (Ativan 2mg/ml 1ml) 1 mg Q4H PRN IV Restlessness 04/19/18 03:45 04/25/18 23:44 04/20/18 01:59 Lorazepam (Ativan 2mg/ml 1ml) 2 mg Q4H PRN IM For Anxiety 04/19/18 03:45 04/25/18 23:44 04/19/18 10:27 Magnesium Hydroxide (Mom) 30 ml HSPRN PRN ORAL Constipation 04/18/18 23:45 05/18/18 23:44 Multivitamins (Multivitamins W/ Minerals 15ml Liquid) 15 ml DAILY ORAL 04/19/18 09:00 05/19/18 08:59 Olanzapine (ZyPREXA) 2.5 mg BID ORAL 04/19/18 23:15 05/19/18 23:14 Ondansetron HCl (Zofran) 4 mg Q6H PRN IVP Nausea & Vomiting 04/18/18 23:45 05/18/18 23:44 GI: Plan Problems: (1) Encounter for PEG (percutaneous endoscopic gastrostomy) (2) Severe malnutrition (3) Dehydration (4) Failure to thrive Plan recommend PEG if patient does not meet nutritional needs bioethics ordered calorie count ordered ST evaluation ordered supportive care PO/IV hydration + electrolyte correction fu labs Discussed with Dr. Billings. Thank you for this patient referral, we will follow. The patient was seen and examined at bedside and all new and available data was reviewed in the patients chart. I agree with the above findings, impression and plan. (Patient seen earlier today. Signature stamp does not reflect patient encounter time.). - MD Stacia [facility]arsB[facility] [employer] Apr 20, 2018 10:47
[2018-04-20 12:00] VITALS: BP 120/66
[2018-04-20 16:00] VITALS: BP 119/95
[2018-04-20 20:00] VITALS: BP 136/83
[2018-04-20] MEDS ORDERED: Haloperidol Decanoate 50mg Inj IM ONE (22:30)
--- NOTE | 2018-04-20 22:36 | General Progress Note ---
Assessment/Plan Problem List: (1) Failure to thrive (2) Schizophrenia Assessment/Plan haldol im prn zyprexa haldol dec cont restraints. Subjective Neurologic/Psychiatric: Reports: anxiety, depressed Allergies: Coded Allergies: PENICILLINS (Verified Allergy, Mild, 06/13/13) Subjective cont to be agitated and noncompliant . Objective Last 24 Hour Vital Signs Date Time Temp Pulse Resp B/P (MAP) Pulse Ox O2 Delivery O2 Flow Rate FiO2 04/20/18 21:00 Room Air 04/20/18 20:00 78 04/20/18 20:00 97.0 78 18 136/83 (100) 98 04/20/18 16:00 83 04/20/18 16:00 97.0 83 19 119/95 (103) 98 04/20/18 12:00 97.3 82 20 120/66 (84) 98 04/20/18 12:00 82 04/20/18 09:00 Room Air 04/20/18 08:00 79 04/20/18 08:00 96.8 92 19 121/73 (89) 98 04/20/18 04:00 82 04/20/18 04:00 97.0 82 19 133/62 (85) 97 04/20/18 00:00 97.0 80 19 139/73 (95) 97 04/20/18 00:00 80 Laboratory Tests 04/20/18 07:35: White Blood Count 6.9, Red Blood Count 4.08L, Hemoglobin 12.5, Hematocrit 36.5L , Mean Corpuscular Volume 89, Mean Corpuscular Hemoglobin 30.6, Mean Corpuscular Hemoglobin Concent 34.2, Red Cell Distribution Width 11.5L, Platelet Count 235, Mean Platelet Volume 6.5, Neutrophils (%) (Auto) 75.9H, Lymphocytes (%) (Auto) 18.5L, Monocytes (%) (Auto) 4.2, Eosinophils (%) (Auto) 0.6, Basophils (%) (Auto) 0.8, Sodium Level 137, Potassium Level 3.1L, Chloride Level 102, Carbon Dioxide Level 23, Anion Gap 12, Blood Urea Nitrogen 8, Creatinine 0.6, Estimat Glomerular Filtration Rate > 60, Glucose Level 217#H, Calcium Level 9.0, Total Bilirubin 0.5, Aspartate Amino Transf (AST/SGOT) 22, Alanine Aminotransferase (ALT/SGPT) 19, Alkaline Phosphatase 80, Total Protein 7.1, Albumin 3.1L, Globulin 4.0, Albumin/Globulin Ratio 0.8L Height (Feet): 5 Height (Inches): 2.00 Weight (Pounds): 99 General Appearance: no apparent distress, alert, confused, agitated Birdie Fortune MD Apr 20, 2018 22:36
[2018-04-21] VITALS (9 sets, daily range): BP systolic 113–148; BP diastolic 55–80
--- NOTE | 2018-04-21 00:40 | General Progress Note ---
Assessment/Plan Problem List: (1) Failure to thrive (2) Dehydration ICD Codes: E86.0 - Dehydration SNOMED: 52397803 (3) Severe malnutrition ICD Codes: E43 - Unspecified severe protein-calorie malnutrition SNOMED: 76785917 (4) Encounter for PEG (percutaneous endoscopic gastrostomy) ICD Codes: Z43.1 - Encounter for attention to gastrostomy SNOMED: 922335961, 253474288 (5) Schizophrenia Status: stable Status Narrative She refuses to eat. She is extremely psychotic. Will need Gtube. Subjective Date patient seen: Apr 20, 2018 Time patient seen: 11:56 ROS Limited/Unobtainable: Yes Constitutional: Reports: no symptoms, other - aggitated easily HEENT: Reports: no symptoms Cardiovascular: Reports: no symptoms Respiratory: Reports: no symptoms Gastrointestinal/Abdominal: Reports: no symptoms Genitourinary: Reports: no symptoms Neurologic/Psychiatric: Reports: emotional problems, pre-existing deficit Endocrine: Reports: no symptoms Hematologic/Lymphatic: Reports: no symptoms Allergies: Coded Allergies: PENICILLINS (Verified Allergy, Mild, 06/13/13) Subjective She refuses to eat, easily aggitated and yells. Needs restraint Objective Last 24 Hour Vital Signs Date Time Temp Pulse Resp B/P (MAP) Pulse Ox O2 Delivery O2 Flow Rate FiO2 04/20/18 21:00 Room Air 04/20/18 20:00 78 04/20/18 20:00 97.0 78 18 136/83 (100) 98 04/20/18 16:00 83 04/20/18 16:00 97.0 83 19 119/95 (103) 98 04/20/18 12:00 97.3 82 20 120/66 (84) 98 04/20/18 12:00 82 04/20/18 09:00 Room Air 04/20/18 08:00 79 04/20/18 08:00 96.8 92 19 121/73 (89) 98 04/20/18 04:00 82 04/20/18 04:00 97.0 82 19 133/62 (85) 97 Intake and Output 04/20/18 04/21/18 19:00 07:00 # Voids 4 Laboratory Tests 04/20/18 07:35: White Blood Count 6.9, Red Blood Count 4.08L, Hemoglobin 12.5, Hematocrit 36.5L , Mean Corpuscular Volume 89, Mean Corpuscular Hemoglobin 30.6, Mean Corpuscular Hemoglobin Concent 34.2, Red Cell Distribution Width 11.5L, Platelet Count 235, Mean Platelet Volume 6.5, Neutrophils (%) (Auto) 75.9H, Lymphocytes (%) (Auto) 18.5L, Monocytes (%) (Auto) 4.2, Eosinophils (%) (Auto) 0.6, Basophils (%) (Auto) 0.8, Sodium Level 137, Potassium Level 3.1L, Chloride Level 102, Carbon Dioxide Level 23, Anion Gap 12, Blood Urea Nitrogen 8, Creatinine 0.6, Estimat Glomerular Filtration Rate > 60, Glucose Level 217#H, Calcium Level 9.0, Total Bilirubin 0.5, Aspartate Amino Transf (AST/SGOT) 22, Alanine Aminotransferase (ALT/SGPT) 19, Alkaline Phosphatase 80, Total Protein 7.1, Albumin 3.1L, Globulin 4.0, Albumin/Globulin Ratio 0.8L Height (Feet): 5 Height (Inches): 2.00 Weight (Pounds): 99 General Appearance: no apparent distress EENT: PERRL/EOMI Neck: non-tender Cardiovascular: normal peripheral pulses Respiratory/Chest: chest wall non-tender Abdomen: normal bowel sounds Extremities: calf tenderness Edema: no edema noted Arm (L), no edema noted Arm (R), no edema noted Leg (L), no edema noted Leg (R), no edema noted Pedal (L), no edema noted Pedal (R), no edema noted Generalized Neurologic: no motor/sensory deficits Skin: normal pigmentation Lymphatic: normal anterior cervical (L), normal anterior cervical (R), normal posterior cervical (L), normal posterior cervical (R), normal submandibular (L) , normal submandibular (R), normal supraclavicular (L), normal supraclavicular ( R), normal axillary (L), normal axillary (R), normal inguinal (L), normal inguinal (R), normal other Isaias Christopher MD Apr 21, 2018 00:40
[2018-04-21] MEDS: D5 1/2NS 1,000 ML IV SCH ×3 (02:23→21:15)
[2018-04-21] MEDS: NovoLOG Insulin Flexpen SUBQ SCH ×4 (06:17→22:01)
[2018-04-21] MEDS ORDERED: Haloperidol Decanoate 50mg Inj IM ONE (08:00)
[2018-04-21] MEDS ORDERED: Haloperidol Decanoate 50mg Inj IM SCH (08:00)
[2018-04-21 08:08] LABS: BASOPHILS % (AUTO) 1.1 % (0.0-2.0); HEMATOCRIT 36.7 % (37.0-47.0); HEMOGLOBIN 12.7 G/DL (12.0-16.0); LYMPHOCYTES % (AUTO) 46.3 % (20.0-45.0); MEAN CORPUSCULAR VOLUME 89 FL (80-99); MONOCYTES % (AUTO) 6.6 % (1.0-10.0); NEUTROPHILS % (AUTO) 43.1 % (45.0-75.0); PLATELET COUNT 268 K/UL (150-450); RED BLOOD COUNT 4.12 M/UL (4.20-5.40); RED CELL DISTRIBUTION WIDTH 11.7 % (11.6-14.8); WHITE BLOOD COUNT 5.7 K/UL (4.8-10.8)
[2018-04-21 08:20] LABS: ANION GAP 9 mmol/L (5-15); BLOOD UREA NITROGEN 2 mg/dL (7-18); CALCIUM 9.3 MG/DL (8.5-10.1); CARBON DIOXIDE 25 MMOL/L (21-32); CHLORIDE 104 MMOL/L (98-107); CREATININE 0.6 MG/DL (0.55-1.30); POTASSIUM 3.5 MMOL/L (3.5-5.1); SODIUM 138 MMOL/L (136-145)
[2018-04-21] MEDS: OLANZapine 2.5mg tab ORAL SCH ×2 (09:00→17:39)
[2018-04-21] MEDS: Heparin 5000 units/ml inj SUBQ SCH ×2 (09:00→22:05)
[2018-04-21] MEDS: Multivitamins W/Minerals 15 ML UDC ORAL SCH (09:00)
[2018-04-21] MEDS: Docusate 100mg cap ORAL SCH (09:00)
[2018-04-21 10:31] LABS: INR 1.1 (0.9-1.1)
[2018-04-21] MEDS: Haloperidol 5mg/ml Inj IM PRN (11:02)
--- NOTE | 2018-04-21 13:35 | Pre-Procedure Note/Attestation ---
Pre-Procedure Note/Attestation Complete Prior to Procedure Planned Procedure: not applicable Procedure Narrative: EGD/PEG Indications for Procedure Pre-Operative Diagnosis: dysphagia Attestation I attest that I discussed the nature of the procedure; its benefits; risks and complications; and alternatives (and the risks and benefits of such alternatives ), prior to the procedure, with the patient (or the patient's legal quality audit representative). I attest that, if there was a reasonable possibility of needing a blood transfusion, the patient (or the patient's legal quality audit representative) was given the [facility] standardized written summary, pursuant to the [place] Blood Safety Act ([place] Health and Safety Code # 1645, as amended). I attest that I re-evaluated the patient just prior to the surgery and that there has been no change in the patient's H&P, except as documented below: Bao Billings MD Apr 21, 2018 13:35
[2018-04-21] MEDS ORDERED: Lidocaine 1% MPF 10mg/ml 5ml ONE (13:45)
[2018-04-21] MEDS ORDERED: LR 1000ml ONE (13:45)
[2018-04-21] MEDS ORDERED: Propofol 200mg/20ml IV ONE (13:45)
[2018-04-21] MEDS ORDERED: NS 500ML IVPB ONE (13:50)
--- NOTE | 2018-04-21 14:04 | Endoscopy Procedure Note ---
Endoscopy Procedure Note General Indication for Procedure: dysphagia, FTT Procedures Performed: EGD, PEG Operative Findings/Diagnosis: same Specimen: none Pt Tolerated Procedure Well: Yes Estimated Blood Loss: none Anesthesia Anesthesiologist: bhargav Anesthesia: MAC Inserted Devices Implant(s) used?: No GI Core Measures 50 yrs or older w/o bx or poly: Not Applicable 10yrs. F/U not recommended: Not Applicable Bao Billings MD Apr 21, 2018 14:04
--- NOTE | 2018-04-21 14:05 | Anethesia Preoperative Eval ---
Anesthesia Pre-op PMH/ROS General Date of Evaluation: Apr 21, 2018 ASA Score: ASA 3 Mallampati Score Class I : Soft palate, uvula, fauces, pillars visible Class II: Soft palate, uvula, fauces visible Class III: Soft palate, base of uvula visible Class IV: Only hard plate visible Mallampati Classification: Class III Surgeon: Manuelito Diagnosis: Failure to thrive Surgical Procedure: EGD and PEG Anesthesia History: none Family History: no anesthesia problems Allergies: Coded Allergies: PENICILLINS (Verified Allergy, Mild, 06/13/13) Medications: see eMAR Patient NPO?: Yes NPO Date: Apr 20, 2018 NPO Time: 22:00 Past Medical History Cardiovascular: Reports: HTN, other - pacemaker; Denies: CAD, NE, valve dz, arrhythmia Pulmonary: Denies: asthma, COPD, IRINEO, other Gastrointestinal/Genitourinary: Reports: other - shizophrenia; Denies: GERD, CRI, ESRD Neurologic/Psychiatric: Reports: other - schizophrenic, seizures; Denies: dementia, CVA, depression/anxiety, TIA Endocrine: Reports: DM; Denies: hypothyroidism, steroids, other HEENT: Denies: cataract (L), cataract (R), glaucoma, ZUNI (L), ZUNI (R), other Hematology/Immune: Reports: anemia - chronic; Denies: DVT, bleeding disorder, other PSxH Narrative: Pacemaker Anesthesia Pre-op Phys. Exam Physician Exam Last Vital Signs Date Time Temp Pulse Resp B/P (MAP) Pulse Ox O2 Delivery O2 Flow Rate FiO2 04/21/18 09:00 Room Air 04/21/18 08:00 97.1 92 16 122/69 (86) 93 Constitutional: NAD Cardiovascular: RRR Respiratory: CTA Airway Exam Mallampati Score: Class II ROM: full Teeth: missing, broken Anesthesia Pre-op A/P Labs Hematology Test 04/21/18 06:50 White Blood Count 5.7 K/UL (4.8-10.8) Red Blood Count 4.12 M/UL (4.20-5.40) L Hemoglobin 12.7 G/DL (12.0-16.0) Hematocrit 36.7 % (37.0-47.0) L Mean Corpuscular Volume 89 FL (80-99) Mean Corpuscular Hemoglobin 30.9 PG (27.0-31.0) Mean Corpuscular Hemoglobin Concent 34.7 G/DL (32.0-36.0) Red Cell Distribution Width 11.7 % (11.6-14.8) Platelet Count 268 K/UL (150-450) Mean Platelet Volume 6.9 FL (6.5-10.1) Neutrophils (%) (Auto) 43.1 % (45.0-75.0) L Lymphocytes (%) (Auto) 46.3 % (20.0-45.0) H Monocytes (%) (Auto) 6.6 % (1.0-10.0) Eosinophils (%) (Auto) 3.0 % (0.0-3.0) Basophils (%) (Auto) 1.1 % (0.0-2.0) Coagulation Test 04/21/18 10:11 Prothrombin Time 12.0 SEC (9.30-11.50) H Prothromb Time International Ratio 1.1 (0.9-1.1) Activated Partial Thromboplast Time 51 SEC (23-33) H Chemistry Test 04/21/18 06:50 Sodium Level 138 MMOL/L (136-145) Potassium Level 3.5 MMOL/L (3.5-5.1) Chloride Level 104 MMOL/L (98-107) Carbon Dioxide Level 25 MMOL/L (21-32) Anion Gap 9 mmol/L (5-15) Blood Urea Nitrogen 2 mg/dL (7-18) L Creatinine 0.6 MG/DL (0.55-1.30) Estimat Glomerular Filtration Rate > 60 mL/min (>60) Glucose Level 200 MG/DL (74-106) H Calcium Level 9.3 MG/DL (8.5-10.1) Risk Assessment & Plan Assessment: ASA III Plan: MAC Status Change Before Surgery: No Pre-Antibiotics Drug: Cipro 400mg Given Within 1 Hr of Incision: Marisol Potter MD Apr 21, 2018 14:05
--- NOTE | 2018-04-21 14:22 | Immediate Post-Op Evaluation ---
Immediate Post-Op Evalulation Immediate Post-Op Evalulation Procedure: EGD and PEG Date of Evaluation: Apr 21, 2018 IV Fluids: 200 Blood Products: 0 Estimated Blood Loss: min Urinary Output: 0 Blood Pressure Systolic: 122 Blood Pressure Diastolic: 84 Pulse Rate: 92 Respiratory Rate: 21 O2 Sat by Pulse Oximetry: 100 Temperature (Fahrenheit): 97 Pain Score (1-10): 0 Nausea: No Vomiting: No Complications 0 Patient Status: awake, reacts, patent, none Hydration Status: adequate Drug: Cipro 400mg Given Within 1 Hr of Incision: Marisol Potter MD Apr 21, 2018 14:22
--- NOTE | 2018-04-21 14:23 | 48 Hour Post Anesthesia Eval ---
Post Anesthesia Evaluation Procedure: EGD and PEG Date of Evaluation: Apr 21, 2018 Airway: patent Nausea: No Vomiting: No Pain Intensity: 0 Hydration Status: adequate Cardiopulmonary Status: at baseline Mental Status/LOC: patient returned to baseline Post-Anesthesia Complications: 0 Follow-up care needed: N/A - further care as per primary team Marisol Balderas MD Apr 21, 2018 14:23
--- NOTE | 2018-04-21 15:49 | General Progress Note ---
Assessment/Plan Problem List: (1) Failure to thrive (2) Schizophrenia Assessment/Plan haldol im prn zyprexa haldol dec was given today cont restraints. Subjective Neurologic/Psychiatric: Reports: anxiety, depressed, emotional problems Allergies: Coded Allergies: PENICILLINS (Verified Allergy, Mild, 06/13/13) Subjective cont to be agitated and noncompliant .the pt is delusional and disorganized. Objective Last 24 Hour Vital Signs Date Time Temp Pulse Resp B/P (MAP) Pulse Ox O2 Delivery O2 Flow Rate FiO2 04/21/18 14:22 92 21 100 04/21/18 09:00 Room Air 04/21/18 08:00 97.1 92 16 122/69 (86) 93 04/21/18 07:38 87 04/21/18 04:00 86 04/21/18 04:00 97.0 86 18 129/73 (91) 96 04/21/18 00:00 83 04/21/18 00:00 97.9 83 18 124/70 (88) 96 04/20/18 21:00 Room Air 04/20/18 20:00 78 04/20/18 20:00 97.0 78 18 136/83 (100) 98 04/20/18 16:00 83 04/20/18 16:00 97.0 83 19 119/95 (103) 98 Intake and Output 04/20/18 04/21/18 18:59 06:59 # Voids 4 2 Laboratory Tests 04/21/18 06:50: White Blood Count 5.7, Red Blood Count 4.12L, Hemoglobin 12.7, Hematocrit 36.7L , Mean Corpuscular Volume 89, Mean Corpuscular Hemoglobin 30.9, Mean Corpuscular Hemoglobin Concent 34.7, Red Cell Distribution Width 11.7, Platelet Count 268, Mean Platelet Volume 6.9, Neutrophils (%) (Auto) 43.1L, Lymphocytes ( %) (Auto) 46.3H, Monocytes (%) (Auto) 6.6, Eosinophils (%) (Auto) 3.0, Basophils (%) (Auto) 1.1, Sodium Level 138, Potassium Level 3.5, Chloride Level 104, Carbon Dioxide Level 25, Anion Gap 9, Blood Urea Nitrogen 2L, Creatinine 0.6, Estimat Glomerular Filtration Rate > 60, Glucose Level 200H, Calcium Level 9.3 04/21/18 10:11: Prothrombin Time 12.0H, Prothromb Time International Ratio 1.1, Activated Partial Thromboplast Time 51H Height (Feet): 5 Height (Inches): 2.00 Weight (Pounds): 99 General Appearance: alert, confused, agitated Birdie Fortune MD Apr 21, 2018 15:49
--- NOTE | 2018-04-21 16:00 | Procedure Note ---
DATE OF PROCEDURE: 04/21/2018 SURGEON: Bao Billings M.D. PROCEDURE: Upper endoscopy with PEG placement. ANESTHESIA: Please see anesthesia sheet. INSTRUMENT: Olympus adult flexible upper endoscope. INDICATION: 1. Failure to thrive. 2. Dysphagia. REASON FOR PROCEDURE: The procedure, risks, benefits, and possible consequences, including hemorrhage, aspiration, perforation and infection, and alternative treatments, were explained to the patient/legal guardian by Dr. Bao Billings and the patient/legal guardian understood and accepted these risks. PROCEDURE IN DETAIL: After informed consent was obtained and the patient was adequately sedated, Olympus upper endoscope was advanced from mouth into the second portion of the duodenum and retroflexion was performed in the stomach. Then, under endoscopic guidance, under sterile condition, a 20-Mosotho pull type of G-tube was successfully placed in the epigastric area. The distance from the tip of the tube to skin was about 2.5 cm in size. The patient tolerated the procedure well without any complications. SUMMARY OF FINDINGS: Status post successful PEG placement. RECOMMENDATIONS: 1. Start abdominal binder. 2. Elevate the head of the bed at all times. 3. G-tube flush. 4. G-tube care. 5. Start tube feeding later today. 6. The patient received dose of antibiotics prior to this procedure. I want to thank Dr. Christopher for this kind referral. Bao Billings M.D. DR: Lashon JOB#: [id number] CC: Isaias Christopher M.D.; Fax#: [phone]
[2018-04-21] MEDS: LORazepam Inj 2mg/ml 1ml IV PRN (16:10)
[2018-04-22] VITALS: BP 128/75
--- NOTE | 2018-04-22 02:49 | General Progress Note ---
Assessment/Plan Problem List: (1) Failure to thrive (2) Dehydration ICD Codes: E86.0 - Dehydration SNOMED: 46784672 (3) Severe malnutrition ICD Codes: E43 - Unspecified severe protein-calorie malnutrition SNOMED: 33380304 (4) Encounter for PEG (percutaneous endoscopic gastrostomy) ICD Codes: Z43.1 - Encounter for attention to gastrostomy SNOMED: 045718984, 467913904 (5) Schizophrenia Status: doing well - er Gtube feed will be started Subjective Date patient seen: Apr 21, 2018 Time patient seen: 11:00 ROS Limited/Unobtainable: Yes Constitutional: Reports: no symptoms HEENT: Reports: no symptoms Cardiovascular: Reports: no symptoms Respiratory: Reports: no symptoms Gastrointestinal/Abdominal: Reports: no symptoms Genitourinary: Reports: no symptoms Neurologic/Psychiatric: Reports: anxiety, emotional problems Endocrine: Reports: no symptoms Hematologic/Lymphatic: Reports: no symptoms Allergies: Coded Allergies: PENICILLINS (Verified Allergy, Mild, 06/13/13) Subjective She refuses to eat, easily aggitated and yells. Needs restraint Objective Last 24 Hour Vital Signs Date Time Temp Pulse Resp B/P (MAP) Pulse Ox O2 Delivery O2 Flow Rate FiO2 04/22/18 00:00 123 20 128/75 (92) 99 04/21/18 21:00 Room Air 04/21/18 20:00 101 04/21/18 20:00 97.0 106 24 145/69 (94) 98 04/21/18 16:33 99 04/21/18 16:00 98.4 86 16 113/72 (86) 94 04/21/18 14:30 100 16 148/55 100 Nasal Cannula 2 04/21/18 14:22 92 21 100 04/21/18 14:21 98 16 135/65 100 Nasal Cannula 2 04/21/18 14:16 98 16 119/80 100 Nasal Cannula 2 04/21/18 14:11 97.4 98 16 117/72 100 Nasal Cannula 2 04/21/18 11:40 68 04/21/18 09:00 Room Air 04/21/18 08:00 97.1 92 16 122/69 (86) 93 04/21/18 07:38 87 04/21/18 04:00 86 04/21/18 04:00 97.0 86 18 129/73 (91) 96 Intake and Output 04/21/18 04/22/18 19:00 07:00 Intake Total 955 ml 100 ml Output Total 300 ml Balance 955 ml -200 ml Free Water 40 ml IV Total 800 ml 100 ml Tube Feeding 115 ml Output Urine Total 300 ml # Voids 1 Laboratory Tests 04/21/18 06:50: White Blood Count 5.7, Red Blood Count 4.12L, Hemoglobin 12.7, Hematocrit 36.7L , Mean Corpuscular Volume 89, Mean Corpuscular Hemoglobin 30.9, Mean Corpuscular Hemoglobin Concent 34.7, Red Cell Distribution Width 11.7, Platelet Count 268, Mean Platelet Volume 6.9, Neutrophils (%) (Auto) 43.1L, Lymphocytes ( %) (Auto) 46.3H, Monocytes (%) (Auto) 6.6, Eosinophils (%) (Auto) 3.0, Basophils (%) (Auto) 1.1, Sodium Level 138, Potassium Level 3.5, Chloride Level 104, Carbon Dioxide Level 25, Anion Gap 9, Blood Urea Nitrogen 2L, Creatinine 0.6, Estimat Glomerular Filtration Rate > 60, Glucose Level 200H, Calcium Level 9.3 04/21/18 10:11: Prothrombin Time 12.0H, Prothromb Time International Ratio 1.1, Activated Partial Thromboplast Time 51H Height (Feet): 5 Height (Inches): 2.00 Weight (Pounds): 99 General Appearance: WD/WN EENT: PERRL/EOMI Neck: non-tender Cardiovascular: normal peripheral pulses Respiratory/Chest: chest wall non-tender Abdomen: no organomegaly Extremities: normal range of motion Edema: no edema noted Arm (L), no edema noted Arm (R), no edema noted Leg (L), no edema noted Leg (R), no edema noted Pedal (L), no edema noted Pedal (R), no edema noted Generalized Neurologic: inking machine tender II-XII grossly normal, no motor/sensory deficits Skin: normal pigmentation Lymphatic: normal anterior cervical (L), normal anterior cervical (R), normal posterior cervical (L), normal posterior cervical (R), normal submandibular (L) , normal submandibular (R), normal supraclavicular (L), normal supraclavicular ( R), normal axillary (L), normal axillary (R), normal inguinal (L), normal inguinal (R), normal other Isaias Christopher MD Apr 22, 2018 02:49
[2018-04-22 04:00] VITALS: BP 102/64
[2018-04-22] MEDS: NovoLOG Insulin Flexpen SUBQ SCH ×4 (06:53→20:43)
[2018-04-22] MEDS: D5 1/2NS 1,000 ML IV SCH ×2 (06:54→17:34)
--- NOTE | 2018-04-22 07:04 | General Progress Note ---
Assessment/Plan Assessment/Plan Assessment - AMS - S/p PEG for dysphagia - DM Recommendations - continue TF - GT care - Elevate HOB Subjective Allergies: Coded Allergies: PENICILLINS (Verified Allergy, Mild, 06/13/13) Subjective above noted awake but confused tolerating TF Objective Last 24 Hour Vital Signs Date Time Temp Pulse Resp B/P (MAP) Pulse Ox O2 Delivery O2 Flow Rate FiO2 04/22/18 04:00 98.1 123 20 102/64 (77) 96 04/22/18 00:00 123 20 128/75 (92) 99 04/21/18 21:00 Room Air 04/21/18 20:00 101 04/21/18 20:00 97.0 106 24 145/69 (94) 98 04/21/18 16:33 99 04/21/18 16:00 98.4 86 16 113/72 (86) 94 04/21/18 14:30 100 16 148/55 100 Nasal Cannula 2 04/21/18 14:22 92 21 100 04/21/18 14:21 98 16 135/65 100 Nasal Cannula 2 04/21/18 14:16 98 16 119/80 100 Nasal Cannula 2 04/21/18 14:11 97.4 98 16 117/72 100 Nasal Cannula 2 04/21/18 11:40 68 04/21/18 09:00 Room Air 04/21/18 08:00 97.1 92 16 122/69 (86) 93 04/21/18 07:38 87 Intake and Output 04/21/18 04/22/18 19:00 07:00 Intake Total 955 ml 100 ml Output Total 300 ml Balance 955 ml -200 ml Free Water 40 ml IV Total 800 ml 100 ml Tube Feeding 115 ml Output Urine Total 300 ml # Voids 1 Laboratory Tests 04/21/18 10:11: Prothrombin Time 12.0H, Prothromb Time International Ratio 1.1, Activated Partial Thromboplast Time 51H Height (Feet): 5 Height (Inches): 2.00 Weight (Pounds): 99 Objective Thin woman NCAT supple CTA RRR abd soft (+) GT no edema Reyes Hurtado MD Apr 22, 2018 07:04
[2018-04-22 07:46] LABS: BASOPHILS % (AUTO) 0.4 % (0.0-2.0); EOSINOPHILS % (AUTO) 0.2 % (0.0-3.0); HEMATOCRIT 37.6 % (37.0-47.0); HEMOGLOBIN 13.2 G/DL (12.0-16.0); LYMPHOCYTES % (AUTO) 18.6 % (20.0-45.0); MEAN CORPUSCULAR VOLUME 89 FL (80-99); MONOCYTES % (AUTO) 4.1 % (1.0-10.0); NEUTROPHILS % (AUTO) 76.7 % (45.0-75.0); PLATELET COUNT 264 K/UL (150-450); RED BLOOD COUNT 4.22 M/UL (4.20-5.40); RED CELL DISTRIBUTION WIDTH 11.5 % (11.6-14.8); WHITE BLOOD COUNT 12.6 K/UL (4.8-10.8)
[2018-04-22 08:00] VITALS: BP 98/63
[2018-04-22 08:05] LABS: ANION GAP 10 mmol/L (5-15); BLOOD UREA NITROGEN 4 mg/dL (7-18); CALCIUM 9.7 MG/DL (8.5-10.1); CARBON DIOXIDE 27 MMOL/L (21-32); CHLORIDE 102 MMOL/L (98-107); CREATININE 0.8 MG/DL (0.55-1.30); POTASSIUM 3.5 MMOL/L (3.5-5.1); SODIUM 139 MMOL/L (136-145)
[2018-04-22] MEDS: OLANZapine 2.5mg tab GT SCH ×2 (08:50→17:34)
[2018-04-22] MEDS: Multivitamins W/Minerals 15 ML UDC GT SCH (08:50)
[2018-04-22] MEDS: Docusate 100mg/10ml Liq GT SCH (08:50)
[2018-04-22] MEDS: Heparin 5000 units/ml inj SUBQ SCH ×2 (08:51→20:42)
[2018-04-22 12:00] VITALS: BP 108/67
[2018-04-22] MEDS: cefTRIAXone 1 GM in D5W 55 ML IVPB SCH (12:32)
[2018-04-22 16:00] VITALS: BP 109/75
[2018-04-22 20:00] VITALS: BP 108/59
--- NOTE | 2018-04-22 20:00 | Consultation ---
DATE OF CONSULTATION: 04/22/2018 INFECTIOUS DISEASE CONSULTATION CONSULTING PHYSICIAN: Sharlene Norton M.D. REFERRING PHYSICIAN: Isaias Christopher M.D. This consultation has been done on behalf of Dr. Houston Torres. REASON FOR CONSULTATION: Urinary tract infection. HISTORY OF PRESENT ILLNESS: This is a 67-year-old lady with history of diabetes, depression, and psychosis, who came in with tachycardia and was found to have a urinary tract infection. An Infectious Disease consultation has been obtained for antibiotics. PAST MEDICAL HISTORY: 1. History of diabetes. 2. Depression. 3. Anemia. 4. Schizophrenia. SOCIAL HISTORY: Unable to obtain. FAMILY HISTORY: Unknown. REVIEW OF SYSTEMS: Unable to obtain currently. MEDICATIONS: As an inpatient, she is on multivitamin, Zyprexa, docusate, subcutaneous heparin, insulin glyburide, levothyroxine, lorazepam, milk of magnesia, Tylenol, Zofran, and Haldol. ALLERGIES: She is allergic to penicillin. PHYSICAL EXAMINATION: VITAL SIGNS: Temperature 99.3, T-max of 99.3, pulse 113, respiratory rate 19, and blood pressure 98/63. O2 saturation of 99% HEENT: Pupils are equal and reactive to light and accommodation. Mouth appears clean without thrush. NECK: Supple. No adenopathy. No JVD. CARDIOVASCULAR: Regular rate and rhythm. No murmurs. LUNGS: Clear to auscultation bilaterally. No crackles. No wheezes. ABDOMEN: Soft and nontender. G-tube site appears clean. EXTREMITIES: No cyanosis, no clubbing, no edema. LABORATORY AND DIAGNOSTIC DATA: White count 12.6, hemoglobin 13.2, hematocrit 37.6, MCV 89, and platelet count 264,000 with neutrophils of 76%. Sodium 139, potassium 3.5, chloride 102, bicarb 27, BUN 4, and creatinine 0.8. Glucose 139. Calcium 9.7. On 04/20/2018, total bilirubin 0.5, AST 22, ALT 19, and alkaline phosphatase 80. Total protein 7.1, albumin 3.1. UA showing 2 to 4 white cells. Blood cultures are negative from 04/20/2018. 04/18/2018, blood culture growing coagulase-negative Staph. 04/18/2018, rectal swab was negative for VRE. 04/18/2018, nasal swab was negative for MRSA. 04/18/2018, urine culture growing Klebsiella, which is susceptible to ceftriaxone, ertapenem, imipenem, Levaquin, nitrofurantoin, and Bactrim. Chest x-ray was unremarkable. CT head showing negative for bleed or mass effect. Age-related volume loss. ASSESSMENT: This is a 67-year-old lady with history of schizophrenia and depression, who comes in and is found to have, 1. Klebsiella urinary tract infection. 2. Positive blood cultures with coagulase-negative Staph, likely a contaminant. 3. Schizophrenia. 4. Leukocytosis. PLAN: 1. We will start the patient on ceftriaxone. 2. We will follow up cultures and adjust antibiotics accordingly. I would like to thank Dr. Isaias Christopher for this consultation. Sharlene Norton M.D. DR: JOSE JOB#: [id number] CC:
--- NOTE | 2018-04-22 23:40 | General Progress Note ---
Assessment/Plan Problem List: (1) Failure to thrive (2) Schizophrenia Assessment/Plan haldol im prn zyprexa haldol dec was given today cont restraints. Subjective Neurologic/Psychiatric: Reports: anxiety, depressed, emotional problems Allergies: Coded Allergies: PENICILLINS (Verified Allergy, Mild, 06/13/13) Subjective cont to be agitated and noncompliant Objective Last 24 Hour Vital Signs Date Time Temp Pulse Resp B/P (MAP) Pulse Ox O2 Delivery O2 Flow Rate FiO2 04/22/18 16:00 99 04/22/18 16:00 97.9 98 19 109/75 (86) 98 04/22/18 12:00 98.9 85 19 108/67 (81) 99 04/22/18 11:33 94 04/22/18 09:26 96 04/22/18 09:00 Room Air 04/22/18 08:00 99.3 113 19 98/63 (75) 99 04/22/18 04:00 98.1 123 20 102/64 (77) 96 04/22/18 04:00 107 04/22/18 00:00 123 20 128/75 (92) 99 Intake and Output 04/21/18 04/22/18 18:59 06:59 Intake Total 930 ml 125 ml Output Total 300 ml Balance 930 ml -175 ml Free Water 40 ml IV Total 800 ml 100 ml Tube Feeding 90 ml 25 ml Output Urine Total 300 ml # Voids 3 Laboratory Tests 04/22/18 05:59: White Blood Count 12.6#H, Red Blood Count 4.22, Hemoglobin 13.2, Hematocrit 37.6 , Mean Corpuscular Volume 89, Mean Corpuscular Hemoglobin 31.2H, Mean Corpuscular Hemoglobin Concent 35.0, Red Cell Distribution Width 11.5L, Platelet Count 264, Mean Platelet Volume 6.2L, Neutrophils (%) (Auto) 76.7H, Lymphocytes (%) (Auto) 18.6L, Monocytes (%) (Auto) 4.1, Eosinophils (%) (Auto) 0.2, Basophils (%) (Auto) 0.4, Sodium Level 139, Potassium Level 3.5, Chloride Level 102, Carbon Dioxide Level 27, Anion Gap 10, Blood Urea Nitrogen 4L, Creatinine 0.8, Estimat Glomerular Filtration Rate > 60, Glucose Level 175H, Calcium Level 9.7 Height (Feet): 5 Height (Inches): 2.00 Weight (Pounds): 99 General Appearance: alert, confused, agitated Birdie Fortune MD Apr 22, 2018 23:40
[2018-04-23] VITALS: BP 92/54
[2018-04-23] MEDS: D5 1/2NS 1,000 ML IV SCH ×2 (03:40→14:30)
[2018-04-23] MEDS: Haloperidol 5mg/ml Inj IM PRN (03:57)
[2018-04-23 04:00] VITALS: BP 130/70
[2018-04-23] MEDS: NovoLOG Insulin Flexpen SUBQ SCH ×3 (06:30→16:30)
[2018-04-23 08:00] VITALS: BP 116/74
[2018-04-23] MEDS: Docusate 100mg/10ml Liq GT SCH (09:25)
[2018-04-23] MEDS: OLANZapine 2.5mg tab GT SCH ×2 (09:25→18:00)
[2018-04-23] MEDS: Multivitamins W/Minerals 15 ML UDC GT SCH (09:25)
[2018-04-23] MEDS: Heparin 5000 units/ml inj SUBQ SCH (09:27)
--- NOTE | 2018-04-23 10:48 | Infectious Diseases Prog Note ---
Assessment/Plan Assessment/Plan A; 1. Klebsiella urinary tract infection. 2. Positive blood cultures with coagulase-negative Staph, likely a contaminant. 3. Schizophrenia. 4. Leukocytosis. 5. FTT s/p GT placement P: Continue Rocephin Subjective ROS Limited/Unobtainable: Yes Neurologic: Reports: confusion, other - on restraint Allergies: Coded Allergies: PENICILLINS (Verified Allergy, Mild, 06/13/13) Objective Vital Signs Last 24 Hour Vital Signs Date Time Temp Pulse Resp B/P (MAP) Pulse Ox O2 Delivery O2 Flow Rate FiO2 04/23/18 08:00 98.4 113 25 116/74 (88) 96 04/23/18 04:00 98.4 60 18 130/70 (90) 96 04/23/18 04:00 97 04/23/18 00:00 92 04/23/18 00:00 97.2 91 18 92/54 (67) 94 04/22/18 21:00 Room Air 04/22/18 20:00 97.5 107 20 108/59 (75) 98 04/22/18 16:00 99 04/22/18 16:00 97.9 98 19 109/75 (86) 98 04/22/18 12:00 98.9 85 19 108/67 (81) 99 04/22/18 11:33 94 Height (Feet): 5 Height (Inches): 2.00 Weight (Pounds): 99 General Appearance: no acute distress HEENT: mucous membranes moist Respiratory/Chest: lungs clear Cardiovascular: normal rate Abdomen: soft, non tender, other - GT feeding Neurologic/Psychiatric: disoriented, other - shouting Microbiology Date/Time Source Procedure Growth Status 04/20/18 14:00 Blood Blood Culture - Preliminary NO GROWTH AFTER 48 HOURS Resulted 04/20/18 14:00 Blood Blood Culture - Preliminary NO GROWTH AFTER 48 HOURS Resulted Current Medications Medications (Trade) Dose Ordered Sig/Shanta Route PRN Reason Start Time Stop Time Status Last Admin Dose Admin Acetaminophen (Tylenol) 650 mg Q4H PRN ORAL Mild Pain/Temp > 100.5 04/18/18 23:45 05/18/18 23:44 Ceftriaxone Sodium 1 gm/ Dextrose 55 ml @ 110 mls/hr Q24H IVPB 04/22/18 12:00 04/29/18 11:59 04/22/18 12:32 Dextrose (Dextrose 50%) 25 ml Q30M PRN IV Hypoglycemia 04/18/18 23:45 05/18/18 23:44 Dextrose (Dextrose 50%) 50 ml Q30M PRN IV Hypoglycemia 04/18/18 23:45 05/18/18 23:44 04/19/18 16:58 Dextrose/Sodium Chloride 1,000 ml @ 100 mls/hr Q10H IV 04/19/18 19:15 05/19/18 19:14 04/23/18 03:40 Docusate Sodium (Colace) 100 mg DAILY GT 04/22/18 09:00 05/22/18 08:59 04/23/18 09:25 Glyburide (Diabeta) 5 mg BIAC GT 04/22/18 16:30 05/19/18 06:29 04/23/18 06:30 Haloperidol Lactate (Haldol) 5 mg Q4HR PRN IM Agitation 04/18/18 23:45 05/18/18 23:44 04/23/18 03:57 Heparin Sodium (Porcine) (Heparin 5000 units/ml) 5,000 units EVERY 12 HOURS SUBQ 04/19/18 09:00 05/19/18 08:59 04/23/18 09:27 Insulin Aspart (NovoLOG) BEFORE MEALS AND HS SUBQ 04/19/18 06:30 05/19/18 06:29 04/22/18 20:43 Levothyroxine Sodium (Synthroid) 100 mcg DAILY@0630 ORAL 04/19/18 06:30 05/19/18 06:29 04/23/18 06:30 Lorazepam (Ativan 2mg/ml 1ml) 1 mg Q4H PRN IV Restlessness 04/19/18 03:45 04/25/18 23:44 04/21/18 16:10 Lorazepam (Ativan 2mg/ml 1ml) 2 mg Q4H PRN IM For Anxiety 04/19/18 03:45 04/25/18 23:44 04/19/18 10:27 Magnesium Hydroxide (Mom) 30 ml HSPRN PRN ORAL Constipation 04/18/18 23:45 05/18/18 23:44 Multivitamins (Multivitamins W/ Minerals 15ml Liquid) 15 ml DAILY GT 04/22/18 09:00 05/19/18 08:59 04/23/18 09:25 Olanzapine (ZyPREXA) 2.5 mg BID GT 04/22/18 09:00 05/19/18 23:14 04/23/18 09:25 Ondansetron HCl (Zofran) 4 mg Q6H PRN IVP Nausea & Vomiting 04/18/18 23:45 05/18/18 23:44 Houston Torres MD Apr 23, 2018 10:48
[2018-04-23 12:00] VITALS: BP 112/59
[2018-04-23] MEDS: cefTRIAXone 1 GM in D5W 55 ML IVPB SCH (12:34)
[2018-04-23 16:00] VITALS: BP 128/66
--- NOTE | 2018-04-23 17:13 | General Progress Note ---
Assessment/Plan Assessment/Plan Assessment - AMS - S/p PEG for dysphagia - DM Recommendations - continue TF - GT care - Ele[facility] HOB Subjective Allergies: Coded Allergies: PENICILLINS (Verified Allergy, Mild, 06/13/13) Subjective above noted awake but confused tolerating TF Objective Last 24 Hour Vital Signs Date Time Temp Pulse Resp B/P (MAP) Pulse Ox O2 Delivery O2 Flow Rate FiO2 04/23/18 16:00 98.2 112 20 128/66 (86) 92 04/23/18 12:00 98.2 111 23 112/59 (76) 94 04/23/18 12:00 107 04/23/18 09:00 Room Air 04/23/18 08:00 98.4 113 25 116/74 (88) 96 04/23/18 08:00 107 04/23/18 04:00 98.4 60 18 130/70 (90) 96 04/23/18 04:00 97 04/23/18 00:00 92 04/23/18 00:00 97.2 91 18 92/54 (67) 94 04/22/18 21:00 Room Air 04/22/18 20:00 97.5 107 20 108/59 (75) 98 Intake and Output 04/22/18 04/23/18 19:00 07:00 Intake Total 1595 ml 65 ml Output Total 1000 ml 900 ml Balance 595 ml -835 ml Free Water 45 ml 10 ml IV Total 1110 ml Tube Feeding 440 ml 55 ml Output Urine Total 1000 ml 900 ml Height (Feet): 5 Height (Inches): 2.00 Weight (Pounds): 99 Objective Thin woman NCAT supple CTA RRR abd soft (+) GT no edema Reyes Hurtado MD Apr 23, 2018 17:12
--- NOTE | 2018-04-24 12:44 | General Progress Note ---
Assessment/Plan Problem List: (1) Failure to thrive (2) Dehydration ICD Codes: E86.0 - Dehydration SNOMED: 84825287 (3) Severe malnutrition ICD Codes: E43 - Unspecified severe protein-calorie malnutrition SNOMED: 90701995 (4) Encounter for PEG (percutaneous endoscopic gastrostomy) ICD Codes: Z43.1 - Encounter for attention to gastrostomy SNOMED: 038229243, 503709132 (5) Schizophrenia Status: doing well Status Narrative She is doing well overall. For her failure to thrive she has Gtube. Seen by the psychiatrist and has depo injection. She has nelson for urinary retention. Will need urology f/u in the future. She is tolerating tube feed and can go back to [facility]. She had tachycardia due to sepsis and poor PO intake. She will be under my care at the facility and Dr. Yang. Subjective Date patient seen: Apr 23, 2018 Time patient seen: 10:00 ROS Limited/Unobtainable: Yes Constitutional: Reports: no symptoms HEENT: Reports: no symptoms Cardiovascular: Reports: no symptoms Respiratory: Reports: no symptoms Gastrointestinal/Abdominal: Reports: no symptoms Genitourinary: Reports: no symptoms Neurologic/Psychiatric: Reports: anxiety, weakness Endocrine: Reports: no symptoms Hematologic/Lymphatic: Reports: no symptoms Allergies: Coded Allergies: PENICILLINS (Verified Allergy, Mild, 06/13/13) Subjective She refuses to eat, easily aggitated and yells. Needs restraint Objective Last 24 Hour Vital Signs Date Time Temp Pulse Resp B/P (MAP) Pulse Ox O2 Delivery O2 Flow Rate FiO2 04/23/18 16:00 98.2 112 20 128/66 (86) 92 04/23/18 16:00 117 Intake and Output 04/23/18 04/24/18 19:00 07:00 Output Total 800 ml Balance -800 ml Output Urine Total 800 ml Height (Feet): 5 Height (Inches): 2.00 Weight (Pounds): 99 General Appearance: no apparent distress EENT: PERRL/EOMI, normal ENT inspection Neck: non-tender, supple Cardiovascular: normal peripheral pulses, normal rate Respiratory/Chest: chest wall non-tender, lungs clear, normal breath sounds Abdomen: normal bowel sounds, no organomegaly, no mass Extremities: no calf tenderness Edema: no edema noted Arm (L), no edema noted Arm (R), no edema noted Leg (L), no edema noted Leg (R), no edema noted Pedal (L), no edema noted Pedal (R), no edema noted Generalized Neurologic: mica inspector II-XII grossly normal, no motor/sensory deficits, abnormal gait , alert, responsive Skin: normal pigmentation Lymphatic: normal anterior cervical (L), normal anterior cervical (R), normal posterior cervical (L), normal posterior cervical (R), normal submandibular (L) , normal submandibular (R), normal supraclavicular (L), normal supraclavicular ( R), normal axillary (L), normal axillary (R), normal inguinal (L), normal inguinal (R), normal other Isaias Christopher MD Apr 24, 2018 12:44
--- NOTE | 2018-04-25 09:10 | Discharge Summary ---
Discharge Summary Discharge Summary _ DATE OF ADMISSION: 04/18/2018 DATE OF DISCHARGE: 04/23/2018 DISCHARGED BY: Dr. Christopher REASON FOR ADMISSION: 67 years old female, resident of correction facility ,with past medical history of diabetes, depression, schizophrenia, hypothyroidism, was sent to emergency room for evaluation . Patient refused to eat and take her medications. On evaluation patient was found to be tachycardic with heart rate greater than 150 and hypovolemic. Patient also found to have urinary tract infection. Patient started on empiric antibiotics and subsequently was admitted for further management. CONSULTANTS: ID specialist Dr. Norton GI specialist Dr. Billings psychiatrist [facility] COURSE: Patient admitted to telemetry floor. Patient started on the IV hydration. Tachycardia with likely due to dehydration and hypovolemia. Heart rate improved. Infectious disease specialist followed. Urine culture revealed Klebsiella. Initial blood culture 1 out of 4 revealed Staphylococci coagulase negative. Repeated blood cultures were negative. Initial low-grade positive blood culture were likely contaminant as per ID specialist. Antibiotic regimen to be continued at the correction [facility] to complete the course. Patient was on IV hydration and oral fluids were pushed. Electrolytes corrected as needed. GI specialist followed for failure to thrive. Patient with evidence of severe malnutrition, dehydration and failure to thrive. Calorie count was ordered , however patient declined to eat . Bedside swallow evaluation revealed questionable degree of oropharyngeal dysphagia. Patient refused to participate in bedside swallow evaluation. Patient was refusing all meals and medications. Speech therapist recommended PEG placement if oral intake suboptimal. Informed consent was obtained from patient's daughter. Patient subsequently undergone on 04/21 successful PEG placement. Abdominal binder applied. Strict aspiration /reflux precautions maintained. G-tube site care provided. Patient started on tube feedings later as per engine repairer recommendation. Protein supplement added as per engine repairer recommendations. Patient was able to tolerate tube feeding. Synthroid was continued. Blood sugar was managed with sliding scale of insulin. Hemoglobin A1c at goal. Psychiatrist followed and optimized psychiatric medication regimen. Patient clinically stabilized and was ready for transfer to correction facility for continuation of care. FINAL DIAGNOSES: Severe malnutrition Dehydration Dysphagia Failure to thrive due to dehydration and severe malnutrition Status post PEG placement Klebsiella UTI Diabetes mellitus Hypothyroidism Schizophrenia DISCHARGE MEDICATIONS: List of medication was sent with patient DISCHARGE INSTRUCTIONS: Patient was discharged to the correction facility. Follow up with medical doctor at the facility. I have been assigned to dictate discharge summary for this account. I was not involved in the patient's management. Yael Lopez NP Apr 25, 2018 09:09
== END 2018-04-23 19:39 | DRG 422 ==
LOC: EDBD 16:46 → EDUNIT# 16:46 → EMR 19:01 → 2E 19:19 → EDBEDREQ 20:23 → EMR 21:06
PROC: 0DH63UZ Insertion of Feeding Device into Stomach, Percutaneous Approach (ICD-10-PCS; principal; 2018-04-21 13:55)
DX: E86.0 Dehydration (principal); E43 Unspecified severe protein-calorie malnutrition; R13.10 Dysphagia, unspecified; F20.9 Schizophrenia, unspecified; B96.1 Klebsiella pneumoniae [K. pneumoniae] as the cause of diseases classified elsewhere; E11.9 Type 2 diabetes mellitus without complications; E03.9 Hypothyroidism, unspecified; R62.7 Adult failure to thrive; N39.0 Urinary tract infection, site not specified; Z88.0 Allergy status to penicillin; F32.9 Major depressive disorder, single episode, unspecified; R00.0 Tachycardia, unspecified
CPT/HCPCS: 36415; 70450; 71045; 80048; 80053; 81003; 82550; 82962; 83036; 83605; 84484; 85025; 85610; 85730; 87040; 87081; 87086; 87181; 93005; 94003; 94150; 96361; 96365; 96372; 99285; J1815

== ENCOUNTER 2019-06-10 15:28 | Inpatient (IN) | payer MEDICAID ==
[~2019-06-10] VITALS: Ht 160 cm; Wt 59.0 kg
[~2019-06-10 15:28] MED LIST changes: +CRANBERRY405 M1 PO; +MULTIVITAMINS1 EAC8 ORAL
--- NOTE | 2019-06-10 15:36 | NUR ---
ED Nurse Note: pt arrived with [facility] 185 due to G tube malfunction. per Ros from Debbie yu telephone endorsement, pt pulled her gtube out this morning. pt does not appear to be in distress. pt denies pain at this time.
[2019-06-10 15:39] VITALS: BP 132/84
--- NOTE | 2019-06-10 15:50 | NUR ---
ED Nurse Note: pt is agitated, scratching, yelling, spitting on staff. pt is yelling verbal slurs at staff.
[2019-06-10] MEDS ORDERED: Haloperidol 5mg/ml Inj IM ONE ×2 (16:00→17:00)
[2019-06-10] MEDS ORDERED: LORazepam Inj 2mg/ml 1ml IM ONE ×2 (16:00→17:00)
[2019-06-10] MEDS ORDERED: DiphenhydrAMINE 50mg/ml Inj IM ONE ×2 (16:00→17:00)
--- NOTE | 2019-06-10 16:03 | Emergency Room Report ---
History of Present Illness General Chief Complaint: Malfunctioning Gastric Tube Source: Medical Record Present Illness HPI 68-year-old female history of schizophrenia presents with G-tube that was pulled out no aggravating relieving factors severity is moderate, constant unknown exact date of removal patient presents for evaluation and replacement Allergies: Coded Allergies: PENICILLINS (Verified Allergy, Mild, 06/13/13) Patient History Past Medical History: see triage record Reviewed Nursing Documentation: PMH: Agreed; PSxH: Agreed Nursing Documentation-PMH Past Medical History: No History, Except For Hx Cardiac Problems: No Hx Pacemaker: No - FTT, OA, ANEMIA Hx Diabetes: Yes Hx Cancer: No Hx Gastrointestinal Problems: No Hx Neurological Problems: No Hx Seizures: Yes Review of Systems All Other Systems: negative except mentioned in HPI Physical Exam Vital Signs Date Time Temp Pulse Resp B/P (MAP) Pulse Ox O2 Delivery O2 Flow Rate FiO2 06/10/19 15:32 98.2 99 18 132/84 (100) 99 Room Air Sp02 EP Interpretation: reviewed, normal General Appearance: alert, other - Combative Head: normocephalic, atraumatic Eyes: bilateral eye PERRL, bilateral eye EOMI ENT: uvula midline, moist mucus membranes Neck: supple, thyroid normal, supple/symm/no masses Respiratory: lungs clear, no respiratory distress, no retraction, no accessory muscle use Cardiovascular #1: normal peripheral pulses, regular rate, rhythm, no edema, no gallop, no murmur Gastrointestinal: non tender, soft, no guarding, no rebound, other - G-tube tract closed Musculoskeletal: normal inspection Neurologic: alert, responsive Psychiatric: anxious Skin: no rash, warm/dry Medical Decision Making Diagnostic Impression: Primary Impression: Malfunction of gastrostomy tube ER Course Patient with malfunctioning G-tube could not replace it We will admit patient to Dr. Christopher for replacement Laboratory Tests Test 06/10/19 16:30 White Blood Count 7.2 K/UL (4.8-10.8) Red Blood Count 4.32 M/UL (4.20-5.40) Hemoglobin 13.1 G/DL (12.0-16.0) Hematocrit 39.6 % (37.0-47.0) Mean Corpuscular Volume 92 FL (80-99) Mean Corpuscular Hemoglobin 30.4 PG (27.0-31.0) Mean Corpuscular Hemoglobin Concent 33.2 G/DL (32.0-36.0) Red Cell Distribution Width 13.2 % (11.6-14.8) Platelet Count 264 K/UL (150-450) Mean Platelet Volume 6.6 FL (6.5-10.1) Neutrophils (%) (Auto) 47.2 % (45.0-75.0) Lymphocytes (%) (Auto) 33.8 % (20.0-45.0) Monocytes (%) (Auto) 5.8 % (1.0-10.0) Eosinophils (%) (Auto) 10.8 % (0.0-3.0) H Basophils (%) (Auto) 2.5 % (0.0-2.0) H Prothrombin Time 11.0 SEC (9.30-11.50) Prothrombin Time INR 1.0 (0.9-1.1) Activated Partial Thromboplast Time 27 SEC (23-33) Sodium Level 146 MMOL/L (136-145) H Potassium Level 4.8 MMOL/L (3.5-5.1) Chloride Level 109 MMOL/L (98-107) H Carbon Dioxide Level 30 MMOL/L (21-32) Anion Gap 7 mmol/L (5-15) Blood Urea Nitrogen 13 mg/dL (7-18) Creatinine 0.8 MG/DL (0.55-1.30) Estimate Glomerular Filtration Rate > 60 mL/min (>60) Glucose Level 180 MG/DL (74-106) H Lactic Acid Level 1.70 mmol/L (0.4-2.0) Calcium Level 9.7 MG/DL (8.5-10.1) Phosphorus Level 3.6 MG/DL (2.5-4.9) Magnesium Level 2.1 MG/DL (1.8-2.4) Total Bilirubin 0.3 MG/DL (0.2-1.0) Aspartate Amino Transferase (AST) 17 U/L (15-37) Alanine Aminotransferase (ALT) 19 U/L (12-78) Alkaline Phosphatase 87 U/L (46-116) Troponin I 0.000 ng/mL (0.000-0.056) Pro-B-Type Natriuretic Peptide 121 pg/mL (0-125) Total Protein 8.0 G/DL (6.4-8.2) Albumin 3.4 G/DL (3.4-5.0) Globulin 4.6 g/dL Albumin/Globulin Ratio 0.7 (1.0-2.7) L Lipase 98 U/L (73-393) Rhythm Strip Diag. Results Rhythm Strip Time: 17:09 EP Interpretation: yes Rate: 112 Rhythm: other - Sinus tachycardia Chest X-Ray Diagnostic Results Chest X-Ray Diagnostic Results : Chest X-Ray Ordered: Yes # of Views/Limited/Complete: 1 View Indication: Other - Preop EP Interpretation: Yes Interpretation: no consolidation, no effusion, no pneumothorax, no acute cardiopulmonary disease Impression: No acute disease Electronically Signed by: Clayton Kaufman MD Last Vital Signs Date Time Temp Pulse Resp B/P (MAP) Pulse Ox O2 Delivery O2 Flow Rate FiO2 06/10/19 15:39 98.2 87 18 132/84 99 Room Air Disposition: ADMITTED INPATIENT Condition: Stable Referrals: NON PHYSICIAN (PCP) Clayton Kaufman MD Jun 10, 2019 16:03
--- NOTE | 2019-06-10 16:31 | NUR ---
ED Nurse Note: IV site established, patent and intact. blood specimen collectedl sent to lab.
--- NOTE | 2019-06-10 16:47 | NUR ---
ED Nurse Note: xray completed
[2019-06-10 17:05] LABS: BASOPHILS % (AUTO) 2.5 % (0.0-2.0); EOSINOPHILS % (AUTO) 10.8 % (0.0-3.0); HEMATOCRIT 39.6 % (37.0-47.0); HEMOGLOBIN 13.1 G/DL (12.0-16.0); LYMPHOCYTES % (AUTO) 33.8 % (20.0-45.0); MEAN CORPUSCULAR VOLUME 92 FL (80-99); MONOCYTES % (AUTO) 5.8 % (1.0-10.0); NEUTROPHILS % (AUTO) 47.2 % (45.0-75.0); PLATELET COUNT 264 K/UL (150-450); RED BLOOD COUNT 4.32 M/UL (4.20-5.40); RED CELL DISTRIBUTION WIDTH 13.2 % (11.6-14.8); WHITE BLOOD COUNT 7.2 K/UL (4.8-10.8)
[2019-06-10 17:20] LABS: ANION GAP 7 mmol/L (5-15); BLOOD UREA NITROGEN 13 mg/dL (7-18); CALCIUM 9.7 MG/DL (8.5-10.1); CARBON DIOXIDE 30 MMOL/L (21-32); CHLORIDE 109 MMOL/L (98-107); CREATININE 0.8 MG/DL (0.55-1.30); POTASSIUM 4.8 MMOL/L (3.5-5.1); SODIUM 146 MMOL/L (136-145)
[2019-06-10 17:25] VITALS: BP 122/74
[2019-06-10 17:31] LABS: ALANINE AMINOTRANSFERASE 19 U/L (12-78); ALBUMIN 3.4 G/DL (3.4-5.0); ALBUMIN/GLOBULIN RATIO 0.7 (1.0-2.7); ALKALINE PHOSPHATASE 87 U/L (46-116); ASPARTATE AMINO TRANSFERASE 17 U/L (15-37); BILIRUBIN,TOTAL 0.3 MG/DL (0.2-1.0); PHOSPHORUS 3.6 MG/DL (2.5-4.9)
--- NOTE | 2019-06-10 18:24 | NUR ---
ED Nurse Note: telephone report given khadra vazquez for continuity of care.
--- NOTE | 2019-06-10 18:30 | NUR ---
TRANSFER TO FLOOR: Patient transferred to [facility] as ordered, per ERMD. Report given to LINDA FAROOQ. Belongings GIVEN TO PT.
--- NOTE | 2019-06-10 18:55 | NUR ---
NURSE NOTES: I received telephone report from LINDA Elliott; patient alert x0; on room air, no sing of distress and shortness of breath; no sing of chest pain; NO IV access, according to the report patient pulled the IV line out at the ER, will try to get IV access; side rails up x2, bed at lowest position, breaks engaged, bed alarm on; belonging list signed by ER nurse and receiving nurse; will communicate the admitting MD to get admission order;
[2019-06-10 19:10] VITALS: BP 122/72
--- NOTE | 2019-06-10 19:30 | NUR ---
NURSE NOTES: RECEIVED PATIENT FROM LINDA ALBRIGHT. PATIENT IS ASLEEP, ON ROOM AIR, NO ACUTE DISTRESS NOTED.VSS. NO IV SITE. GAUZE DRESSING NOTED OVER OLD G-TUBE SITE. SKIN IS VERY DRY WITH SCRATCH SANTOS NOTED. SKIN ON BILATERAL LEGS AND FEET ARE DRY AND SCALY. CONTACTED DR. MCLEOD FOR ADMISSION ORDERS. BED IS LOCKED AND LOW, BED ALARMS ACTIVE, SIDE RAILS UP X2 AND CALL LIGHT IS WITHIN REACH. WILL CONTINUE TO MONITOR.
--- NOTE | 2019-06-10 19:42 | NUR ---
HAND-OFF: Report given to LINDA Gibbs. Endorsed to the incoming nurse that patient is risk for fall.
[2019-06-10] MEDS: D5 1/2NS 1,000 ML IV SCH (21:15)
[2019-06-10] MEDS ORDERED: Haloperidol 5mg/ml Inj IM PRN (21:15)
--- NOTE | 2019-06-10 22:00 | NUR ---
NURSE NOTES: RECEIVED ADMISSION ORDERS FROM DR. MCLEOD. LEFT MESSAGE WITH CONSULT MD CIFUENTES FOR FURTHER ORDERS. AWAITING FOR CALL BACK. SUCCESSFULLY OBTAINED NEW IV ON PATIENT. WILL CONTINUE TO MONITOR.
[2019-06-11] VITALS (7 sets, daily range): BP systolic 109–145; BP diastolic 56–78
[2019-06-11] MEDS: LORazepam Inj 2mg/ml 1ml IV PRN ×2 (02:30→18:43)
--- NOTE | 2019-06-11 03:54 | History & Physical ---
History of Present Illness General Date patient seen: Jun 10, 2019 Time patient seen: 09:00 Reason for Hospitalization: Malfunctioning Gastric Tube Present Illness HPI 68 yo female with hx of psychosis, CVA, dysphagia, DM was admitted for placement of her Gtube. It dislodged. Given the severity of her psychosis difficult to communicate with the patient. Allergies: Coded Allergies: PENICILLINS (Verified Allergy, Mild, 06/13/13) Medication History Scheduled Glyburide (Glyburide), 5 MG PO DAILY, (Reported) Levothyroxine Sodium* (Synthroid*), 100 MCG ORAL DAILY, (Reported) Multivitamin With Minerals (Multivitamins With Minerals*), 1 TAB ORAL DAILY, ( Reported) Scheduled PRN Acetaminophen* (Acetaminophen 325MG Tablet*), 650 MG ORAL Q4H PRN for For Pain, (Reported) Acetaminophen* (Tylenol Extra Strength*), 500 MG ORAL Q6H PRN for Pain Scale (6- 10) Docusate Sodium* (Docusate Sodium*), 100 MG ORAL DAILY PRN for Constipation, ( Reported) Magnesium Hydroxide* (Milk Of Magnesia*), 30 ML ORAL DAILY PRN for Constipation, (Reported) Miscellaneous Medications Cranberry Extract (Cranberry), 405 MG PO, (Reported) Patient History Limited by: medical condition History Provided By: Medical Record Healthcare decision maker N Resuscitation status Full Code Advanced Directive on File No Past Medical/Surgical History Past Medical/Surgical History: (1) Schizophrenia (2) Encounter for generalized patient complaints (3) Malfunction of gastrostomy tube (4) Encounter for PEG (percutaneous endoscopic gastrostomy) (5) Severe malnutrition (6) Failure to thrive (7) Dehydration (8) Hypokalemia Review of Systems Review of Symptoms General ROS: no weight loss or fever Psychological ROS:depression or mood changes, memory loss Ophthalmic ROS: no visual changes or eye irritation ENT ROS: no nasal congestion, hearing loss, dizziness Allergy and Immunology ROS: no allergic symptoms or urticaria Hematological and Lymphatic ROS: no swollen glands, unusual bleeding or bruising Endocrine ROS: no polyuria, polydipsia, weight changes, temperature intolerance Respiratory ROS: no cough, shortness of breath, or wheezing Cardiovascular ROS: no chest pain or dyspnea on exertion Gastrointestinal ROS: denies abdominal pain, bright red blood in stool. Musculoskeletal ROS: no myalgias or arthralgias Neurological ROS: no TIA or stroke symptoms Dermatological ROS: no new or changing skin lesions, rashes or pruritis Physical Exam Physical Exam General appearance: alert, aggitated, appears stated age Head: Normocephalic, without obvious abnormality, atraumatic Eyes: conjunctivae/corneas clear. PERRL, EOM's intact. Fundi benign Throat: Lips, mucosa, and tongue normal. Teeth and gums normal Neck: supple, symmetrical, trachea midline, no adenopathy, thyroid: not enlarged, symmetric, no tenderness/mass/nodules, no carotid bruit and no JVD Lungs: clear to auscultation bilaterally Heart: regular rate and rhythm, S1, S2 normal, no murmur, click, rub or gallop Abdomen: soft, non-tender. Bowel sounds normal. No masses, no organomegaly Extremities: extremities normal, atraumatic, no cyanosis or edema Pulses: 2+ and symmetric Skin: Skin color, texture, turgor normal. No rashes or lesions Neurologic: Alert, agitated, follows command at times, nl speech, can move extremities, psychotic, demented, can't ambulate and uses wheel chair, l Last 24 Hour Vital Signs Date Time Temp Pulse Resp B/P (MAP) Pulse Ox O2 Delivery O2 Flow Rate FiO2 06/11/19 00:00 97.4 68 18 109/71 (84) 98 06/10/19 21:46 Room Air 06/10/19 19:10 97.0 84 18 122/72 (89) 95 06/10/19 18:29 98.2 88 18 132/79 95 Room Air 06/10/19 17:25 98.4 95 21 122/74 98 Room Air 06/10/19 15:39 98.2 87 18 132/84 99 Room Air 06/10/19 15:32 98.2 99 18 132/84 (100) 99 Room Air Intake and Output 06/10/19 06/11/19 19:00 07:00 Intake Total 300 ml Output Total 0 ml Balance 0 ml 300 ml Intake IV Total 300 ml Output Urine Total 0 ml Laboratory Tests Test 06/10/19 16:30 White Blood Count 7.2 K/UL (4.8-10.8) Red Blood Count 4.32 M/UL (4.20-5.40) Hemoglobin 13.1 G/DL (12.0-16.0) Hematocrit 39.6 % (37.0-47.0) Mean Corpuscular Volume 92 FL (80-99) Mean Corpuscular Hemoglobin 30.4 PG (27.0-31.0) Mean Corpuscular Hemoglobin Concent 33.2 G/DL (32.0-36.0) Red Cell Distribution Width 13.2 % (11.6-14.8) Platelet Count 264 K/UL (150-450) Mean Platelet Volume 6.6 FL (6.5-10.1) Neutrophils (%) (Auto) 47.2 % (45.0-75.0) Lymphocytes (%) (Auto) 33.8 % (20.0-45.0) Monocytes (%) (Auto) 5.8 % (1.0-10.0) Eosinophils (%) (Auto) 10.8 % (0.0-3.0) H Basophils (%) (Auto) 2.5 % (0.0-2.0) H Prothrombin Time 11.0 SEC (9.30-11.50) Prothromb Time International Ratio 1.0 (0.9-1.1) Activated Partial Thromboplast Time 27 SEC (23-33) Sodium Level 146 MMOL/L (136-145) H Potassium Level 4.8 MMOL/L (3.5-5.1) Chloride Level 109 MMOL/L (98-107) H Carbon Dioxide Level 30 MMOL/L (21-32) Anion Gap 7 mmol/L (5-15) Blood Urea Nitrogen 13 mg/dL (7-18) Creatinine 0.8 MG/DL (0.55-1.30) Estimat Glomerular Filtration Rate > 60 mL/min (>60) Glucose Level 180 MG/DL (74-106) H Lactic Acid Level 1.70 mmol/L (0.4-2.0) Calcium Level 9.7 MG/DL (8.5-10.1) Phosphorus Level 3.6 MG/DL (2.5-4.9) Magnesium Level 2.1 MG/DL (1.8-2.4) Total Bilirubin 0.3 MG/DL (0.2-1.0) Aspartate Amino Transf (AST/SGOT) 17 U/L (15-37) Alanine Aminotransferase (ALT/SGPT) 19 U/L (12-78) Alkaline Phosphatase 87 U/L (46-116) Troponin I 0.000 ng/mL (0.000-0.056) Pro-B-Type Natriuretic Peptide 121 pg/mL (0-125) Total Protein 8.0 G/DL (6.4-8.2) Albumin 3.4 G/DL (3.4-5.0) Globulin 4.6 g/dL Albumin/Globulin Ratio 0.7 (1.0-2.7) L Lipase 98 U/L (73-393) Height (Feet): 5 Height (Inches): 3.00 Weight (Pounds): 130 Medications Current Medications Medications (Trade) Dose Ordered Sig/Shanta Route PRN Reason Start Time Stop Time Status Last Admin Dose Admin Dextrose/Sodium Chloride 1,000 ml @ 100 mls/hr Q10H IV 06/10/19 21:15 07/10/19 21:14 06/10/19 21:15 Haloperidol Lactate (Haldol) 5 mg Q2H PRN IM AGITATION 06/10/19 21:15 07/10/19 21:14 Heparin Sodium (Porcine) (Heparin 5000 units/ml) 5,000 units EVERY 12 HOURS SUBQ 06/11/19 09:00 07/11/19 08:59 Lorazepam (Ativan 2mg/ml 1ml) 1 mg Q4H PRN IV For Anxiety 06/10/19 21:15 06/17/19 21:14 06/11/19 02:30 Assessment/Plan Status Narrative Problem: Dysphagia Hx of CVA Psychosis DM Plan: Gtube placement, treatment of psychosis, GI consult Assessment/Plan: Problem: Dysphagia Hx of CVA Psychosis DM Plan: Gtube placement, treatment of psychosis, GI consult Diagnosis Economy I: Problem: Dysphagia Hx of CVA Psychosis DM Plan: Gtube placement, treatment of psychosis, GI consult Can proceed to do the procedure. Low risk of cardiopulmonary complication. MIPS Hospital declaration INPATIENT level of care is warranted for this patient because patient is a 89 year old with who presents with suspicion of . I have a high level of concern because . Patient is at high risk for . Plan of care/treatment include . Patient care is expected to be greater than 2 midnights. OBSERVATION level of care is warranted for this patient. Patient is a 89 year old with who presents with . Patient will be admitted for 1 midnight, but if additional night(s) is/are necessary, patient will be converted to inpatient status for the entire hospitalization Disposition: Once the patient is stable to leave the hospital, I anticipate the patient will likely be discharged to the following environment: Estimated discharge date: I spent 70 minutes on this patient's case, and minutes was dedicated to counseling and/or care coordination. MIPS (Merit-based Incentive Payment System) Applicable CPT: 50262, 63913 CHECK ALL THAT ARE MET: Measure #5 (CHF): All ages. Prescribe LAURA/ARB upon discharge for patients with left ventricular systolic dysfunction. If not, the reason is clearly documented in the medical chart. Measure #8 (CHF): All ages. Prescribe a beta chucho upon discharge for patients with left ventricular systolic dysfunction. If not, the reason is clearly documented in the medical chart. Measure #47 Advance care plan or surrogate decision maker documented in the medical record. Measure #130 The provider has documented, updated, or reviewed the patients current medication list and has documented it in the patients note. Measure #374 (All): Send report to referring provider. Measure #407(Sepsis due to MSSA bacteremia): Age 18+ Patient treated with a beta-lactam antibiotic (Nafcillin, Oxacillin or Cefazolin) as definitive therapy. MEDICAL COMPLEXITY High complexity medical decision making (need 2/3 categories) Problem - need 4 points Acute/new problem with new plan for workup (4 points, 1 max) Acute/new problem without additional workup (3 points, 1 max) Unstable chronic problem actively being managed (2 point each, 2 max) Stable chronic problem actively being managed (1 point each, 2 max) Self-limited/transient process (constipation, muscle ache, etc) (1 point each , 2 max) Data - need 4 points Reviewed labs/imaging studies (1 points, 2 max) Independent review of imaging (EKG, xrays, etc) (2 points, 2 max) Discussed case with consult/other MD/RN (2 points, 2 max) High Risk - qualify if have one of the following: Severe exacerbation of acute problem, acute mental status change, IV narcotics , monitoring drug levels (vancomycin, INR, tacrolimus etc) Isaias Christopher MD Jun 11, 2019 03:54
[2019-06-11] MEDS: D5 1/2NS 1,000 ML IV SCH ×2 (07:15→08:59)
--- NOTE | 2019-06-11 07:45 | NUR ---
NURSE NOTES: received patient in bed, asleep, no signs of distress. R hand IV access saline locked, L hand IV access receives IVF. Bed locked at lowest position possible, call light within easy reach, siderails up x3, on bed alarm. Will continue to monitor patient and follow up on the POC.
--- NOTE | 2019-06-11 07:50 | NUR ---
HAND-OFF: Report given to LINDA Quintero. Informed RN that patient is a fall risk.
[2019-06-11] MEDS ORDERED: Heparin 5000 units/ml inj SUBQ SCH (09:00)
--- NOTE | 2019-06-11 11:04 | NUR ---
NURSE NOTES: left voicemail for family contact, re consent for peg tube, await call back. Dr Billings aware that consent is pending. per md they cannot override because its not emergency, needs to have bioethics. social service coordinator consulted.
--- NOTE | 2019-06-11 11:05 | Diagnostic Imaging Report ---
Indication: Dyspnea Comparison: 04/18/2018 A single view chest radiograph was obtained. Findings: Lung volumes are low. Lungs are clear. Heart size is slightly accentuated. Bones are osteopenic. IMPRESSION: Limited study due to low lung volumes. No acute findings
--- NOTE | 2019-06-11 11:12 | NUR ---
RD ASSESSMENT & RECOMMENDATIONS SEE CARE ACTIVITY FOR COMPLETE ASSESSMENT DAILY ESTIMATED NEEDS: Needs based on DM 55.9kg 25-30 kcals/kg 5696-2757 total kcals 1-1.5 g protein/kg 56-83 g total protein 25-30 mL/kg 9728-4163 total fluid mLs NUTRITION DIAGNOSIS: * Chewing difficulty r/t psych hx, poor appetite as evidenced by pt is PEG dep. ENTERAL NUTRITION RECOMMENDATIONS: Glucerna 1.2 @ 50ml/hr x 24 hrs to provide 1200ml, 1440kcal, 72g prot, 966ml free water * As able restart TF @30ml/hr, advance as tolerated 10ml/hr q4-6 hrs to goal. * HOB over 30 degrees/ water flush per MD ADDITIONAL RECOMMENDATIONS: 1) CALIBRATED bedscale wt for accurate CBW- PER SNF 123 lbs 2) Hypoglycemics w/ TF 3) Check lytes daily, replete as needed .
[2019-06-11] MEDS ORDERED: cefOXitin 1gm Inj ONE (12:08)
[2019-06-11] MEDS ORDERED: Propofol 200mg/20ml IV ONE (12:20)
[2019-06-11] MEDS ORDERED: Lidocaine 1% MPF 10mg/ml 5ml ONE (12:20)
[2019-06-11] MEDS ORDERED: NS 110ml ONE (12:20)
[2019-06-11] MEDS ORDERED: NS 500ML IVPB ONE (12:40)
[2019-06-11] MEDS ORDERED: fentaNYL 100 mcg/2 mL IV PRN (12:45)
[2019-06-11] MEDS ORDERED: DiphenhydrAMINE 50mg/ml Inj IVP PRN (12:45)
[2019-06-11] MEDS ORDERED: Midazolam 2mg/2ml Inj IVP PRN (12:45)
[2019-06-11] MEDS ORDERED: Atropine Inj 1mg/10ml Syr IV PRN (12:45)
--- NOTE | 2019-06-11 12:50 | Endoscopy Procedure Note ---
Endoscopy Procedure Note General Indication for Procedure: dysphgia Procedures Performed: EGD, PEG Operative Findings/Diagnosis: same Specimen: none Pt Tolerated Procedure Well: Yes Estimated Blood Loss: none Anesthesia Anesthesiologist: nahomi Anesthesia: MAC Inserted Devices Implant(s) used?: No GI Core Measures 50 yrs or older w/o bx or poly: Not Applicable 10yrs. F/U recommended: Not Applicable Bao Billings MD Jun 11, 2019 12:50
--- NOTE | 2019-06-11 13:20 | Anethesia Preoperative Eval ---
Anesthesia Pre-op PMH/ROS General Date of Evaluation: Jun 11, 2019 Time of Evaluation: 12:20 Anesthesiologist: matthew ASA Score: ASA 4 Mallampati Score Class I : Soft palate, uvula, fauces, pillars visible Class II: Soft palate, uvula, fauces visible Class III: Soft palate, base of uvula visible Class IV: Only hard plate visible Mallampati Classification: Class II Surgeon: juan a Diagnosis: g-tube malfunction Surgical Procedure: g-tube replacement Anesthesia History: none Social History: smoking - nonsmoker Family History: no anesthesia problems Allergies: Coded Allergies: PENICILLINS (Verified Allergy, Mild, 06/13/13) Medications: see eMAR Patient NPO?: Yes Past Medical History Cardiovascular: Reports: other - pacemaker Endocrine: Reports: hypothyroidism Anesthesia Pre-op Phys. Exam Physician Exam Last Vital Signs Date Time Temp Pulse Resp B/P (MAP) Pulse Ox O2 Delivery O2 Flow Rate FiO2 06/11/19 11:55 98.4 68 18 116/56 (76) 98 06/10/19 21:46 Room Air Anesthesia Pre-op A/P Labs Hematology Test 06/10/19 16:30 White Blood Count 7.2 K/UL (4.8-10.8) Red Blood Count 4.32 M/UL (4.20-5.40) Hemoglobin 13.1 G/DL (12.0-16.0) Hematocrit 39.6 % (37.0-47.0) Mean Corpuscular Volume 92 FL (80-99) Mean Corpuscular Hemoglobin 30.4 PG (27.0-31.0) Mean Corpuscular Hemoglobin Concent 33.2 G/DL (32.0-36.0) Red Cell Distribution Width 13.2 % (11.6-14.8) Platelet Count 264 K/UL (150-450) Mean Platelet Volume 6.6 FL (6.5-10.1) Neutrophils (%) (Auto) 47.2 % (45.0-75.0) Lymphocytes (%) (Auto) 33.8 % (20.0-45.0) Monocytes (%) (Auto) 5.8 % (1.0-10.0) Eosinophils (%) (Auto) 10.8 % (0.0-3.0) H Basophils (%) (Auto) 2.5 % (0.0-2.0) H Coagulation Test 06/10/19 16:30 Prothrombin Time 11.0 SEC (9.30-11.50) Prothromb Time International Ratio 1.0 (0.9-1.1) Activated Partial Thromboplast Time 27 SEC (23-33) Chemistry Test 06/10/19 16:30 Sodium Level 146 MMOL/L (136-145) H Potassium Level 4.8 MMOL/L (3.5-5.1) Chloride Level 109 MMOL/L (98-107) H Carbon Dioxide Level 30 MMOL/L (21-32) Anion Gap 7 mmol/L (5-15) Blood Urea Nitrogen 13 mg/dL (7-18) Creatinine 0.8 MG/DL (0.55-1.30) Estimat Glomerular Filtration Rate > 60 mL/min (>60) Glucose Level 180 MG/DL (74-106) H Lactic Acid Level 1.70 mmol/L (0.4-2.0) Calcium Level 9.7 MG/DL (8.5-10.1) Phosphorus Level 3.6 MG/DL (2.5-4.9) Magnesium Level 2.1 MG/DL (1.8-2.4) Total Bilirubin 0.3 MG/DL (0.2-1.0) Aspartate Amino Transf (AST/SGOT) 17 U/L (15-37) Alanine Aminotransferase (ALT/SGPT) 19 U/L (12-78) Alkaline Phosphatase 87 U/L (46-116) Troponin I 0.000 ng/mL (0.000-0.056) Pro-B-Type Natriuretic Peptide 121 pg/mL (0-125) Total Protein 8.0 G/DL (6.4-8.2) Albumin 3.4 G/DL (3.4-5.0) Globulin 4.6 g/dL Albumin/Globulin Ratio 0.7 (1.0-2.7) L Lipase 98 U/L (73-393) Katina Denis MD Jun 11, 2019 13:20
--- NOTE | 2019-06-11 13:50 | NUR ---
NURSE NOTES: administered 1mg Ativan IVP as pt was very agitated. 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 Nurse forgot to scan the Ativan. Charge Nurse Porfirio witnessed the waste at [facility].
--- NOTE | 2019-06-11 13:54 | Anethesia Preoperative Eval ---
Anesthesia Pre-op PMH/ROS General Date of Evaluation: Jun 11, 2019 Time of Evaluation: 12:20 Anesthesiologist: matthew ASA Score: ASA 4 Mallampati Score Class I : Soft palate, uvula, fauces, pillars visible Class II: Soft palate, uvula, fauces visible Class III: Soft palate, base of uvula visible Class IV: Only hard plate visible Mallampati Classification: Class II Surgeon: juan a Diagnosis: g-tube malfunction Surgical Procedure: g-tube replacement Anesthesia History: none Family History: no anesthesia problems Allergies: Coded Allergies: PENICILLINS (Verified Allergy, Mild, 06/13/13) Medications: see eMAR Patient NPO?: Yes Past Medical History Cardiovascular: Reports: other - pacemaker Neurologic/Psychiatric: Reports: other - schizophrenia, seizure dz Endocrine: Reports: DM, hypothyroidism Anesthesia Pre-op Phys. Exam Physician Exam Last Vital Signs Date Time Temp Pulse Resp B/P (MAP) Pulse Ox O2 Delivery O2 Flow Rate FiO2 06/11/19 11:55 98.4 68 18 116/56 (76) 98 06/10/19 21:46 Room Air Constitutional: NAD Neurologic: CN 2-12 intact Cardiovascular: RRR Respiratory: CTA Airway Exam Mallampati Score: Class II MO: limited Neck: flexible TMD: 2fb ROM: limited Teeth: missing, broken Anesthesia Pre-op A/P Labs Hematology Test 06/10/19 16:30 White Blood Count 7.2 K/UL (4.8-10.8) Red Blood Count 4.32 M/UL (4.20-5.40) Hemoglobin 13.1 G/DL (12.0-16.0) Hematocrit 39.6 % (37.0-47.0) Mean Corpuscular Volume 92 FL (80-99) Mean Corpuscular Hemoglobin 30.4 PG (27.0-31.0) Mean Corpuscular Hemoglobin Concent 33.2 G/DL (32.0-36.0) Red Cell Distribution Width 13.2 % (11.6-14.8) Platelet Count 264 K/UL (150-450) Mean Platelet Volume 6.6 FL (6.5-10.1) Neutrophils (%) (Auto) 47.2 % (45.0-75.0) Lymphocytes (%) (Auto) 33.8 % (20.0-45.0) Monocytes (%) (Auto) 5.8 % (1.0-10.0) Eosinophils (%) (Auto) 10.8 % (0.0-3.0) H Basophils (%) (Auto) 2.5 % (0.0-2.0) H Coagulation Test 06/10/19 16:30 Prothrombin Time 11.0 SEC (9.30-11.50) Prothromb Time International Ratio 1.0 (0.9-1.1) Activated Partial Thromboplast Time 27 SEC (23-33) Chemistry Test 06/10/19 16:30 Sodium Level 146 MMOL/L (136-145) H Potassium Level 4.8 MMOL/L (3.5-5.1) Chloride Level 109 MMOL/L (98-107) H Carbon Dioxide Level 30 MMOL/L (21-32) Anion Gap 7 mmol/L (5-15) Blood Urea Nitrogen 13 mg/dL (7-18) Creatinine 0.8 MG/DL (0.55-1.30) Estimat Glomerular Filtration Rate > 60 mL/min (>60) Glucose Level 180 MG/DL (74-106) H Lactic Acid Level 1.70 mmol/L (0.4-2.0) Calcium Level 9.7 MG/DL (8.5-10.1) Phosphorus Level 3.6 MG/DL (2.5-4.9) Magnesium Level 2.1 MG/DL (1.8-2.4) Total Bilirubin 0.3 MG/DL (0.2-1.0) Aspartate Amino Transf (AST/SGOT) 17 U/L (15-37) Alanine Aminotransferase (ALT/SGPT) 19 U/L (12-78) Alkaline Phosphatase 87 U/L (46-116) Troponin I 0.000 ng/mL (0.000-0.056) Pro-B-Type Natriuretic Peptide 121 pg/mL (0-125) Total Protein 8.0 G/DL (6.4-8.2) Albumin 3.4 G/DL (3.4-5.0) Globulin 4.6 g/dL Albumin/Globulin Ratio 0.7 (1.0-2.7) L Lipase 98 U/L (73-393) Risk Assessment & Plan Assessment: asa4 Plan: mac Status Change Before Surgery: No Pre-Antibiotics Drug: Katina Arroyo MD Jun 11, 2019 13:54
--- NOTE | 2019-06-11 13:56 | Immediate Post-Op Evaluation ---
Immediate Post-Op Evalulation Immediate Post-Op Evalulation Procedure: g-tube replacement Date of Evaluation: Jun 11, 2019 Time of Evaluation: 13:12 IV Fluids: 100ml 0.9ns Blood Products: none Estimated Blood Loss: negligible Blood Pressure Systolic: 125 Blood Pressure Diastolic: 70 Pulse Rate: 90 Respiratory Rate: 18 O2 Sat by Pulse Oximetry: 100 Temperature (Fahrenheit): 97.1 Pain Score (1-10): 0 Nausea: No Vomiting: No Complications none Patient Status: awake, reacts, patent Hydration Status: adequate Drug: Katina Arroyo MD Jun 11, 2019 13:56
--- NOTE | 2019-06-11 13:58 | 48 Hour Post Anesthesia Eval ---
Post Anesthesia Evaluation Procedure: g-tube replacement Date of Evaluation: Jun 11, 2019 Time of Evaluation: 13:14 Blood Pressure Systolic: 122 0: 70 Pulse Rate: 90 Respiratory Rate: 18 Temperature (Fahrenheit): 97.1 O2 Sat by Pulse Oximetry: 100 Airway: patent Nausea: No Vomiting: No Pain Intensity: 0 Hydration Status: adequate Cardiopulmonary Status: stable Mental Status/LOC: patient returned to baseline Post-Anesthesia Complications: none Follow-up care needed: N/A Katina Denis MD Jun 11, 2019 13:57
--- NOTE | 2019-06-11 14:26 | NUR ---
SS note This SW received a consult for a bioethics consult (will need consent for G-Tube). retail loss prevention specialist explains daughter returned their call and was able to get consent; no longer will require a Bioethics Consult. Sw to follow, as needed.
--- NOTE | 2019-06-11 15:15 | Consultation ---
DATE OF CONSULTATION: 06/11/2019 CHIEF COMPLAINT: Dysphagia and malfunctioning G-tube. HISTORY OF ILLNESS: The patient is a 68-year-old female known to me from last admission. I placed the G-tube for her in 2019. Apparently, the G-tube was pulled out by the patient and . The patient was admitted to the hospital because we were not able to replace the G-tube for her. PAST MEDICAL HISTORY: 1. Diabetes. 2. Depression. 3. Schizophrenia. 4. Hypothyroidism. 5. Dysphagia requiring G-tube placement. ALLERGIES: To penicillin. MEDICATIONS: Please see medication reconciliation list. FAMILY HISTORY: Noncontributory. SOCIAL HISTORY: Currently lives in a halfway. No history of tobacco, alcohol, or drug abuse. REVIEW OF SYSTEMS: Limited. PHYSICAL EXAMINATION: VITAL SIGNS: Temperature is 97.4, pulse 60, respirations 18, blood pressure 109/71. HEENT: Normocephalic and atraumatic. Sclerae are anicteric. NECK: Supple. No evidence of obvious lymphadenopathy. CARDIOVASCULAR: Regular rate and rhythm. Plus S1-S2. LUNGS: Decreased breath sounds bilaterally based on the supine exam. ABDOMEN: Soft and nontender. No rebound. No guarding. No peritoneal sign. EXTREMITIES: No cyanosis, no clubbing, no edema. LABORATORY AND DIAGNOSTIC DATA: White count is 7.2, hemoglobin 13, hematocrit 39, platelet count is 264. ASSESSMENT AND PLAN: This is a 68-year-old female pulled out the G-tube, the site is closed and will need a repeat G-tube placement. Plan to keep her NPO. Plan to do endoscopy and G-tube placement today. I want to thank, Dr. Christopher, for this kind referral. Bao Billings M.D. DR: Lashon JOB#: [id number] CC: Isaias Christopher M.D.; Fax#: [phone]
--- NOTE | 2019-06-11 15:35 | NUR ---
CASE MANAGEMENT:INITIAL REVIEW 68 YR OLD FEMALE BIBA FROM [facility] CC;MALFUNCTIONING GASTRIC TUBE SI;G-TUBE MALFUNCTION 97.0 95 21 132/84 95% ON RA NA146 CL 108 BG 180 CXR= Limited study due to low lung volumes. No acute findings IS;BENADRYL IM ONCE HALDOL IM ONCE LORAZEPAM IM ONCE IVF NS BOLUS ADMITTED TO MED SURG MED SURG STATUS DCP;FROM [facility]
--- NOTE | 2019-06-11 16:15 | Procedure Note ---
DATE OF PROCEDURE: 06/11/2019 SURGEON: Bao Billings M.D. PROCEDURE: Upper endoscopy with PEG placement. ANESTHESIA: Per Dr. Mederos INSTRUMENT: Olympus adult flexible upper endoscope. INDICATIONS: Dysphagia. REASON FOR PROCEDURE: The procedure, risks, benefits, and possible consequences, including hemorrhage, aspiration, perforation and infection, and alternative treatments, were explained to the patient/legal guardian by Dr. Bao Billings and the patient/legal guardian understood and accepted these risks. DESCRIPTION OF PROCEDURE: After informed consent was obtained and the patient was adequately sedated, Olympus upper endoscope was advanced from mouth into the second portion of the duodenum and retroflexion was performed in the stomach. We passed the wire through the old G-tube site and we were able to grab that guidewire with a snare and placed a pull type of G-tube through the same hole. The patient tolerated the procedure well without any complication. SUMMARY OF FINDINGS: Status post successful G-tube placement. RECOMMENDATIONS: 1. Abdominal binder. 2. Elevate the head of the bed at all times. 3. G-tube flush. 4. G-tube care. 5. Start tube feeding later today. I want to thank Dr. Christopher for this kind referral. Bao Billings M.D. DR: SERGIO JOB#: [id number] CC: Isaias Christopher M.D.; Fax#: [phone]
--- NOTE | 2019-06-11 16:28 | NUR ---
NURSE NOTES: RECEIVED A CALL AND SPOKE W DR HARSHA HAYS MD, DC BACK TO SNF W SNF ORDERS. RN ASKED IF CAN GIVE FLU/PNA VACCINE/ LIS JOINER NOT NECESSARY SINCE HE IS PRIMARY TO THE SNF.
--- NOTE | 2019-06-11 16:33 | NUR ---
*-* INSURANCE *-* ALL CLINICALS AND REVIEWS HAVE BEEN FAXED TO: [facility]HAEL CM: Kimberly Mercer / ext [phone] Fax Clinicals: [phone] Tel Num for Status: [phone] Tel Num for D/C [phone]
--- NOTE | 2019-06-11 16:36 | NUR ---
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 LEFT VOICEMAIL
--- NOTE | 2019-06-11 16:53 | NUR ---
CASE MANAGEMENT:DISCHARGE PLAN NOTE PATIENT DISCHARGED BACK TO [facility]. CALL MADE AND SPOKE WITH ROBERT. COOLEY TO RETURN TO ROOM ASSIGNMENT 107-C DETENTION TRANSPORTATION ARRANGED BY CHARGE NURSE LINDA ODELL
--- NOTE | 2019-06-11 18:00 | NUR ---
NURSE NOTES: placed Keven Valve, aspirated GT, brownish thin moderate amount secretion noted. Flushed with 50cc water, tolerated well.
--- NOTE | 2019-06-11 18:59 | NUR ---
NURSE NOTES: REPORT GIVEN TO JULIANNE AMADOR. PER OK TO CONTINUE SAME GT FEED IN SNF.
--- NOTE | 2019-06-11 19:30 | NUR ---
Received patient in bed. Alert x2. Confused. On room air, respirations unlabored. Patient denies pain at this time. Side rails padded for seizure precautions. Bed at the lowest position, call light within reach, non skid socks in place. IV in the Right hand saline lock with no redness or swelling. Patient pending for discharge.
--- NOTE | 2019-06-11 19:30 | NUR ---
NURSE NOTES: Notified pharmacist Lucho regarding Ativan 1mg IVP administered at 1350 and not scanned.
--- NOTE | 2019-06-11 20:00 | NUR ---
NURSE NOTES: [facility] d[facility]c [facility]. Report given to Berenice. VSS, respirations unlabored. IV site discontinued, Patient name bracelet removed.
--- NOTE | 2019-06-12 02:00 | Consultation ---
DATE OF CONSULTATION: 06/11/2019 HISTORY OF PRESENT ILLNESS: This is a 68-year-old female with a history of dementia, psychotic disorder, CVA, who has been admitted to the hospital for G-tube placement. The patient is disorganized, jumping from one subject to another, screaming, not able to provide any meaningful history, and is easily agitated. PAST PSYCHIATRIC HISTORY: Dementia. PAST MEDICAL HISTORY: Significant for failure to thrive and G-tube placement. ALLERGIES: Penicillin. SUBSTANCE ABUSE HISTORY: No known history of illicit drug use or alcohol. MENTAL STATUS EXAMINATION: The patient is alert, confused, disoriented. Mood is anxious. Affect is flat. Thought process is disorganized. Thought content, no suicidal or homicidal ideation. Cognition is impaired. Insight and judgment impaired. ASSESSMENT: [place] I Dementia with behavior disturbance. [place] II Deferred. [place] III G-tube placement. [place] IV Low. [place] V . PLAN: 1. Start the patient on antipsychotics. 2. Ativan and Haldol p.r.n. Birdie Fortune M.D. DR: PAULO JOB#: [id number] CC:
--- NOTE | 2019-06-12 16:03 | Discharge Summary ---
Discharge Summary Discharge Summary _ DATE OF ADMISSION: 06/10/2019 DATE OF DISCHARGE: 06/11/2019 DISCHARGED BY: REASON FOR ADMISSION: 68 years old female, resident of [facility] facility, with past medical history of dysphagia, feeding by G-tube, schizophrenia, osteoarthritis, presented with malfunctioning G-tube , which was pulled out. ER doctor was unable to replace G-tube . Patient subsequently was admitted for G-tube replacement. Troponin negative. EKG revealed sinus tachycardia, no acute ischemic changes. Chest x-ray revealed no acute cardiopulmonary pathology. Laboratory work-up revealed no leukocytosis, stable hemoglobin, hematocrit and platelet count. Sodium 146, chloride 109. Stable renal parameters, LFT and lipase. Albumin 3.4. Patient subsequently admitted to medical surgical floor for G tube replacement . CONSULTANTS: GI specialist Dr. Billings psychiatrist [facility] COURSE: Patient admitted to medical surgical floor. GI specialist consulted. Patient subsequently undergone upper endoscopy with PEG placement . Patient tolerated procedure well. Abdominal binder applied. G-tube site care provided. Tube feeding started with tube feeding formula and goal rate as per registered travel nurse recommendation. Strict aspiration /reflux precaution maintained. SNF medication continued., Psychiatrist seen and evaluated the patient, and diagnosed patient with dementia with behavioral disturbances. Patient started on antipsychotic medication. Supportive care provided. Patient was able to tolerate feeding and stable for discharge. Due to rapid and unexpected improvement patient condition, patient was discharged in 1 day. FINAL DIAGNOSES: Dysphagia Malfunctioning G-tube Status post EGD with PEG placement Dementia with behavioral disturbances DISCHARGE MEDICATIONS: See Medication Reconciliation list. DISCHARGE INSTRUCTIONS: Patient was discharged to the [facility] facility. Follow up with medical doctor at the facility. I have been assigned to dictate discharge summary for this account. I was not involved in the patient's management. Yael Lopez NP Jun 12, 2019 16:02
--- NOTE | 2019-06-13 12:13 | NUR ---
*-* INSURANCE *-* DISCHARGE SUMMARY HAS BEEN FAXED TO: MICHAEL CM: Kimberly Mercer / ext [phone] Fax Clinicals: [phone] Tel Num for Status: [phone] Tel Num for D/C [phone]
== END 2019-06-11 20:00 | DRG 252 ==
LOC: EDBD 15:28 → EMR 15:51 → 4E 16:35 → EDBEDREQ 18:07 → 4E 20:00
PROC: 0DH64UZ Insertion of Feeding Device into Stomach, Percutaneous Endoscopic Approach (ICD-10-PCS; principal; 2019-06-11 12:44)
DX: K94.23 Gastrostomy malfunction (principal); R13.10 Dysphagia, unspecified; F03.91 Unspecified dementia, unspecified severity, with behavioral disturbance; F20.9 Schizophrenia, unspecified; Z88.0 Allergy status to penicillin; Y83.3 Surgical operation with formation of external stoma as the cause of abnormal reaction of the patient, or of later complication, without mention of misadventure at the time of the procedure; Z86.73 Personal history of transient ischemic attack (TIA), and cerebral infarction without residual deficits; E11.9 Type 2 diabetes mellitus without complications; M19.90 Unspecified osteoarthritis, unspecified site; E03.9 Hypothyroidism, unspecified
CPT/HCPCS: 36415; 71045; 80053; 83605; 83690; 83735; 83880; 84100; 84484; 85025; 85610; 85730; 87040; 87081; 93005; 94003; 94150; 96360; 96372; 99285; J7030

== ENCOUNTER 2019-07-29 07:09 | Inpatient (IN) | payer MEDICAID ==
[~2019-07-29] VITALS: Ht 154.9 cm; Wt 51.3 kg
[~2019-07-29 07:09] MED LIST changes: +ACETAMINOPHEN325 M1 GT; -ACETAMINOPHEN325 M1 ORAL; +CRANBERRY405 M1 GT; -CRANBERRY405 M1 PO; +DOCUSATE SODIU100 MG GT; -DOCUSATE SODIU100 MG ORAL; +GLYBURIDE5 MG GT; -GLYBURIDE5 MG PO; +MILK OF MA400 MG/51 GT; -MILK OF MA400 MG/51 ORAL; +SYNTHROID100 MCG GT; -SYNTHROID100 MCG ORAL
[2019-07-29 07:30] VITALS: BP 134/81
--- NOTE | 2019-07-29 07:30 | NUR ---
ED Nurse Note: Pt brought into ED by ambulance from [facility] w/ fever of 101.1F. Pt current temp is 102.8F rectal in ER. Pt is alert and orientedx0, combative. aware. Pt lungs are clear to auscultation. She is placed in isolation room. No cough or runny nose.
--- NOTE | 2019-07-29 07:55 | NUR ---
ED Nurse Note: Pt is altered and not following commands. Pt attempted to fight and scratch the staffs. Unable to draw lab, swab pt at this time. Notified Dr. Cortes, received order for Haldol and Ativan IM. Meds given.
[2019-07-29] MEDS ORDERED: Haloperidol 5mg/ml Inj IM ONE (08:00)
[2019-07-29] MEDS ORDERED: LORazepam Inj 2mg/ml 1ml IM ONE (08:00)
[2019-07-29] MEDS ORDERED: Acetaminophen 650 MG SUPP RECTAL ONE ×2 (08:13→08:15)
--- NOTE | 2019-07-29 08:24 | NUR ---
ED Nurse Note: COVID swab, Influenza swab and MRSA/VRE swabs are done but unable to draw blood due to pt being too uncooperative and violent. ERMD aware. Will attempt to draw blood once pt is calm.
--- NOTE | 2019-07-29 08:39 | Diagnostic Imaging Report ---
EXAM: XR Chest, 1 View CLINICAL HISTORY: COUGH TECHNIQUE: Frontal view of the chest. COMPARISON: Chest x-ray 06/10/19. FINDINGS: Lungs: Prominent perihilar groundglass haziness and increased interstitial markings in bilateral lungs. Pleural space: Unremarkable. The costophrenic angles are sharp. No visible pneumothorax. Heart: Cardiac silhouette is borderline enlarged. Mediastinum: Unremarkable. Bones/joints: Mild degenerative changes in the visualized spine. Vasculature: Mild atherosclerotic calcifications are noted within the aortic arch. IMPRESSION: Prominent perihilar groundglass haziness and increased interstitial markings in bilateral lungs. This is nonspecific and may represent edema versus pneumonia.
--- NOTE | 2019-07-29 08:43 | Emergency Room Report ---
History of Present Illness General Chief Complaint: Fever Source: Medical Record, EMS Present Illness HPI 68-year-old female presents ED for evaluation of fever. Noted by nursing staff today. Resides in snf facility. No reported cough. No nausea or vomiting. No chest pain or shortness of breath. Patient does have history of paranoid schizophrenia. Agitated and combative upon arrival. Unable to provide any additional history at this time. Febrile in triage. Given Tylenol at facility. No other aggravating relieving factors. Denies any other associated symptoms Allergies: Coded Allergies: PENICILLINS (Verified Allergy, Mild, 06/13/13) COVID-19 Screening Contact w/high risk pt: Yes Recent Travel to affected area: No Experienced COVID-19 symptoms?: Yes COVID-19 symptoms experienced: Fever (T>100.4F or >38C) Patient History Past Medical History: DM, psych hx Past Surgical History: none Pertinent Family History: none Social History: Denies: smoking, alcohol use, drug use Now: No Immunizations: UTD Reviewed Nursing Documentation: PMH: Agreed; PSxH: Agreed Nursing Documentation-PMH Hx Cardiac Problems: No Hx Pacemaker: No - FTT, OA, ANEMIA Hx Diabetes: Yes Hx Cancer: No Hx Gastrointestinal Problems: No Hx Neurological Problems: No Hx Seizures: Yes Review of Systems All Other Systems: limited Physical Exam Vital Signs Date Time Temp Pulse Resp B/P (MAP) Pulse Ox O2 Delivery O2 Flow Rate FiO2 07/29/19 07:11 97.5 108 18 140/80 (100) 93 Room Air 07/29/19 07:30 98 Sp02 EP Interpretation: reviewed, normal General Appearance: non-toxic, other - agitated Head: normocephalic, atraumatic Eyes: bilateral eye normal inspection, bilateral eye PERRL ENT: hearing grossly normal, normal pharynx, no angioedema, normal voice Neck: full range of motion, supple/symm/no masses Respiratory: chest non-tender, lungs clear, normal breath sounds, speaking full sentences Cardiovascular #1: regular rate, rhythm, no edema Cardiovascular #2: 2+ carotid (R), 2+ carotid (L), 2+ radial (R), 2+ radial (L) , 2+ dorsalis pedis (R), 2+ dorsalis pedis (L) Gastrointestinal: normal bowel sounds, non tender, soft, non-distended, no guarding, no rebound Rectal: deferred Genitourinary: normal inspection, no CVA tenderness Musculoskeletal: back normal, normal range of motion, gait/station normal, non- tender Neurologic: alert, motor strength/tone normal, oriented x3, sensory intact, responsive, speech normal Psychiatric: other - agitated/combative Reflexes: 3+ bicep (R), 3+ bicep (L), 3+ tricep (R), 3+ tricep (L), 3+ knee (R) , 3+ knee (L) Skin: other - see nursing skin notes Lymphatic: no adenopathy Medical Decision Making Diagnostic Impression: Primary Impression: Fever Qualified Codes: R50.9 - Fever, unspecified Additional Impressions: Pneumonia Qualified Codes: J18.9 - Pneumonia, unspecified organism UTI (urinary tract infection) Qualified Codes: N39.0 - Urinary tract infection, site not specified ER Course Hospital Course 68-year-old female presenting to ED with fever, cough. from SNF Differential diagnoses include: Pneumonia, UTI, sepsis, dehydration, VT/ unstable angina Clinical course Patient placed on stretcher. in isolation. i wore full PPE. On personnel monitor with stable vitals are ED course. After initial history and physical, I ordered labs, IV fluids, EKG, chest x-ray, blood cultures, UA. Labs - electrolytes ok, no leukocytosis, lactic ok, UA + bacteria EKG - sinus tachycardia no acute ischemic changes interpreted by me CXR - bilateral infiltrates Patient agitated refusing treatment. History of paranoid schizophrenia. Given Haldol/Ativan. Given antibiotics. COVID swab sent. Case discussed with Dr Christopher and they agreed to admit patient to their service for further care and support I feel this is a highly complex case requiring extensive working including EKG/ Rhythm strip, Xray/CT/US, Blood/urine lab work, repeat exams while in ED, and administration of strong opiates/narcotics for pain control, admission to hospital or close patient follow up. Diagnosis - fever, pneumonia, UTI Patient admitted to floor in serious condition Labs Test 07/29/19 09:19 White Blood Count 4.9 K/UL (4.8-10.8) Red Blood Count 4.39 M/UL (4.20-5.40) Hemoglobin 13.2 G/DL (12.0-16.0) Hematocrit 37.9 % (37.0-47.0) Mean Corpuscular Volume 87 FL (80-99) Mean Corpuscular Hemoglobin 30.1 PG (27.0-31.0) Mean Corpuscular Hemoglobin Concent 34.9 G/DL (32.0-36.0) Red Cell Distribution Width 11.6 % (11.6-14.8) Platelet Count 126 K/UL (150-450) Mean Platelet Volume 6.8 FL (6.5-10.1) Neutrophils (%) (Auto) % (45.0-75.0) Lymphocytes (%) (Auto) % (20.0-45.0) Monocytes (%) (Auto) % (1.0-10.0) Eosinophils (%) (Auto) % (0.0-3.0) Basophils (%) (Auto) % (0.0-2.0) Urine Color Yellow Urine Appearance Slightly cloudy Urine pH 6 (4.5-8.0) Urine Specific [place] 1.015 (1.005-1.035) Urine Protein 2+ (NEGATIVE) Urine Glucose (UA) Negative (NEGATIVE) Urine Ketones 3+ (NEGATIVE) Urine Blood 2+ (NEGATIVE) Urine Nitrite Positive (NEGATIVE) Urine Bilirubin Negative (NEGATIVE) Urine Urobilinogen 4 MG/DL (0.0-1.0) Urine Leukocyte Esterase 1+ (NEGATIVE) Urine RBC 2-4 /HPF (0 - 2) Urine WBC 2-4 /HPF (0 - 2) Urine Squamous Epithelial Cells Few /LPF (NONE/OCC) Urine Bacteria Many /HPF (NONE) Sodium Level 141 MMOL/L (136-145) Potassium Level 4.1 MMOL/L (3.5-5.1) Chloride Level 104 MMOL/L (98-107) Carbon Dioxide Level 24 MMOL/L (21-32) Anion Gap 13 mmol/L (5-15) Blood Urea Nitrogen 22 mg/dL (7-18) Creatinine 1.0 MG/DL (0.55-1.30) Estimat Glomerular Filtration Rate 55.0 mL/min (>60) Glucose Level 85 MG/DL (74-106) Lactic Acid Level 1.50 mmol/L (0.4-2.0) Calcium Level 8.8 MG/DL (8.5-10.1) Total Bilirubin 0.3 MG/DL (0.2-1.0) Aspartate Amino Transf (AST/SGOT) 33 U/L (15-37) Alanine Aminotransferase (ALT/SGPT) 23 U/L (12-78) Alkaline Phosphatase 62 U/L (46-116) Total Creatine Kinase 237 U/L (26-308) Creatine Kinase MB 0.7 NG/ML (0.0-3.6) Creatine Kinase MB Relative Index 0.2 Troponin I 0.000 ng/mL (0.000-0.056) Pro-B-Type Natriuretic Peptide 116 pg/mL (0-125) Total Protein 7.7 G/DL (6.4-8.2) Albumin 2.9 G/DL (3.4-5.0) Globulin 4.8 g/dL Albumin/Globulin Ratio 0.6 (1.0-2.7) EKG Diagnostic Results Rate: tachycardiac Rhythm: NSR ST Segments: no acute changes ASA given to the pt in ED: No Rhythm Strip Diag. Results EP Interpretation: yes Rhythm: NSR, no PVC's, no ectopy Chest X-Ray Diagnostic Results Chest X-Ray Diagnostic Results : Chest X-Ray Ordered: Yes # of Views/Limited/Complete: 1 View Indication: Shortness of Breath EP Interpretation: Yes Interpretation: no pneumothorax, other - perihilar groundglass haziness Impression: Other - pneumonia Electronically Signed by: Electronically signed by Abiodun Young MD Last Vital Signs Date Time Temp Pulse Resp B/P (MAP) Pulse Ox O2 Delivery O2 Flow Rate FiO2 07/29/19 07:30 102.8 104 16 134/81 97 Room Air 07/29/19 07:30 98 Status: improved Disposition: ADMITTED INPATIENT Condition: Serious Abiodun Young MD Jul 29, 2019 08:43
--- NOTE | 2019-07-29 09:06 | NUR ---
ED Nurse Note: BEE-DAUGHTER
[2019-07-29 09:30] VITALS: BP 126/76
[2019-07-29] MEDS ORDERED: ZYPREXA2.5 MG GT (10:09)
[2019-07-29 10:11] LABS: ANION GAP 13 mmol/L (5-15); BLOOD UREA NITROGEN 22 mg/dL (7-18); CALCIUM 8.8 MG/DL (8.5-10.1); CARBON DIOXIDE 24 MMOL/L (21-32); CHLORIDE 104 MMOL/L (98-107); POTASSIUM 4.1 MMOL/L (3.5-5.1); SODIUM 141 MMOL/L (136-145)
[2019-07-29 10:12] LABS: APPEARANCE,URINE SLIGHTLY CLOUDY; BILIRUBIN, URINE NEGATIVE (NEGATIVE); GLUCOSE, URINE (UA) NEGATIVE (NEGATIVE); KETONES,URINE 3+ (NEGATIVE); LEUKOCYTE ESTERASE ,URINE 1+ (NEGATIVE); NITRITE,URINE POSITIVE (NEGATIVE); PH,URINE 6 (4.5-8.0); PROTEIN,URINE 2+ (NEGATIVE); UROBILINOGEN,URINE 4 MG/DL (0.0-1.0)
[2019-07-29 10:18] LABS: ALANINE AMINOTRANSFERASE 23 U/L (12-78); ALBUMIN 2.9 G/DL (3.4-5.0); ALBUMIN/GLOBULIN RATIO 0.6 (1.0-2.7); ALKALINE PHOSPHATASE 62 U/L (46-116); ASPARTATE AMINO TRANSFERASE 33 U/L (15-37); BILIRUBIN,TOTAL 0.3 MG/DL (0.2-1.0); CKMB 0.7 NG/ML (0.0-3.6); CREATINE KINASE 237 U/L (26-308)
[2019-07-29 10:31] LABS: COLOR,URINE YELLOW
[2019-07-29 10:34] LABS: HEMATOCRIT 37.9 % (37.0-47.0); HEMOGLOBIN 13.2 G/DL (12.0-16.0); MEAN CORPUSCULAR VOLUME 87 FL (80-99); PLATELET COUNT 126 K/UL (150-450); RED BLOOD COUNT 4.39 M/UL (4.20-5.40); RED CELL DISTRIBUTION WIDTH 11.6 % (11.6-14.8); WHITE BLOOD COUNT 4.9 K/UL (4.8-10.8)
--- NOTE | 2019-07-29 11:05 | NUR ---
ED Nurse Note: Report given to Miguelina MCKEON.
[2019-07-29 11:33] VITALS: BP 130/80
--- NOTE | 2019-07-29 11:45 | NUR ---
ED Nurse Note: Pt transferred to MS floor with tech. All belongings taken. VSS.
[2019-07-29 13:00] VITALS: BP 101/60
[2019-07-29] MEDS ORDERED: ACETAMINOPHEN325 M1 GT (13:46)
[2019-07-29] MEDS ORDERED: Milk of Magnesia 30ml Ud GT PRN (14:00)
[2019-07-29] MEDS ORDERED: Acetaminophen 650mg/20.3ml GT PRN (14:00)
--- NOTE | 2019-07-29 14:00 | NUR ---
NURSE NOTES: Patient arrived at 1200 from ED. Patient was combative on arrival, spitting at staff, attempted to pull out IV, patient was placed in bilateral soft wrist restraints for safety, order received from . VS stable on arrival. IV patent and flushing. Belongings checked. G-tube patent. Fall precautions maintained. Side rails upx3, bed low and locked, bed alarm armed.
--- NOTE | 2019-07-29 14:29 | NUR ---
NURSE NOTES: Dr. Christopher contacted for admission orders. All orders received, read back, and entered.
[2019-07-29] MEDS: Azithromycin 500 MG in D5W 275 ML IV SCH (16:15)
--- NOTE | 2019-07-29 17:45 | NUR ---
NURSE NOTES: Received order from Dr. Christopher for insulin average scale with q6hr accuchecks. Order read back and entered.
[2019-07-29] MEDS: OLANZapine 2.5mg tab GT SCH (18:21)
[2019-07-29] MEDS: Docusate 100mg/10ml Liq GT SCH (18:21)
[2019-07-29] MEDS: NovoLOG Insulin Flexpen SUBQ SCH ×2 (18:42→23:50)
--- NOTE | 2019-07-29 19:17 | NUR ---
NURSE NOTES: Notified Dr. Christopher via voicemail that patient had BS of 54, patient was asymptomatic and given juice, BS rechecked and is 78.
--- NOTE | 2019-07-29 19:45 | NUR ---
HAND-OFF: Report given to Jaky MCKEON.
[2019-07-29 20:00] VITALS: BP 127/58
--- NOTE | 2019-07-29 20:00 | NUR ---
NURSE NOTES: Received patient awake, verbal, very confused, impulsive, on bilateral soft wrist restraints.
[2019-07-29] MEDS: Heparin 5000 units/ml inj SUBQ SCH (21:00)
--- NOTE | 2019-07-30 02:16 | History & Physical ---
History of Present Illness General Date patient seen: Jul 29, 2019 Time patient seen: 09:00 Reason for Hospitalization: Fever Present Illness Allergies: Coded Allergies: PENICILLINS (Verified Allergy, Mild, 06/13/13) COVID-19 Screening Contact w/high risk pt: No Recent Travel to affected area: No Experienced COVID-19 symptoms?: Yes COVID-19 symptoms experienced: Fever (T>100.4F or >38C) Medication History Scheduled Cranberry Extract (Cranberry), 405 MG GT DAILY, (Reported) Docusate Sodium* (Docusate Sodium*), 100 MG GT BID, (Reported) Glyburide (Glyburide), 5 MG GT BID, (Reported) Levothyroxine Sodium* (Synthroid*), 100 MCG GT DAILY, (Reported) Olanzapine* (Zyprexa*), 2.5 MG GT BID, (Reported) Scheduled PRN Acetaminophen* (Acetaminophen 325MG Tablet*), 650 MG GT Q4H PRN for Mild Pain ( Pain Scale 1-3), (Reported) Acetaminophen* (Acetaminophen 325MG Tablet*), 650 MG GT Q4H PRN for TEMP >101, ( Reported) Magnesium Hydroxide* (Milk Of Magnesia*), 30 ML GT HS PRN for Constipation, ( Reported) Patient History Limited by: medical condition History Provided By: Medical Record 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 Resuscitation status Full Code Advanced Directive on File Past Medical/Surgical History Past Medical/Surgical History: (1) Failure to thrive (2) Schizophrenia (3) Fever (4) UTI (urinary tract infection) (5) Pneumonia (6) Hypokalemia Review of Systems Review of Symptoms General ROS: no weight loss Psychological ROS: hx of depression and mood changes, and memory loss Ophthalmic ROS: no visual changes or eye irritation ENT ROS: no nasal congestion, hearing loss, dizziness Allergy and Immunology ROS: PCN allergy Hematological and Lymphatic ROS: no swollen glands, unusual bleeding or bruising Endocrine ROS: no polyuria, polydipsia, weight changes, temperature intolerance Respiratory ROS: no cough, shortness of breath, or wheezing Cardiovascular ROS: no chest pain or dyspnea on exertion Gastrointestinal ROS: denies abdominal pain, bright red blood in stool. Musculoskeletal ROS: no myalgias or arthralgias can't ambulate Neurological ROS: no TIA or stroke symptoms Dermatological ROS: no new or changing skin lesions, rashes or pruritis Physical Exam Physical Exam General appearance: alert, cooperative Head: Normocephalic, without obvious abnormality, atraumatic Eyes: conjunctivae/corneas clear. PERRL, EOM's intact. Fundi benign Throat: Lips, mucosa, and tongue normal. Teeth and gums poor dentation Neck: supple, symmetrical, trachea midline, no adenopathy, thyroid: not enlarged, symmetric, no tenderness/mass/nodules, no carotid bruit and no JVD Lungs: clear to auscultation bilaterally Heart: regular rate and rhythm, S1, S2 normal, no murmur, click, rub or gallop Abdomen: soft, non-tender. Bowel sounds normal. No masses, no organomegaly Extremities: extremities normal, atraumatic, no cyanosis or edema Pulses: 2+ and symmetric Skin: Skin color, texture, turgor normal. No rashes or lesions Neurologic: Grossly normal Last 24 Hour Vital Signs Date Time Temp Pulse Resp B/P (MAP) Pulse Ox O2 Delivery O2 Flow Rate FiO2 07/29/19 20:04 Room Air 07/29/19 20:00 98.0 113 20 127/58 (81) 95 07/29/19 13:02 Room Air 07/29/19 13:00 97.8 93 20 101/60 (74) 98 07/29/19 11:45 102.0 95 19 123/76 99 Room Air 98 07/29/19 11:33 102.0 100 17 130/80 97 Room Air 07/29/19 09:30 102.0 102 18 126/76 96 Room Air 07/29/19 08:50 102.0 07/29/19 07:30 102.8 104 16 134/81 97 Room Air 07/29/19 07:30 104 16 Room Air 98 07/29/19 07:11 97.5 108 18 140/80 (100) 93 Room Air Intake and Output 07/29/19 07/30/19 19:00 07:00 Intake Total 780 ml 275 ml Balance 780 ml 275 ml Intake Oral 0 ml Free Water 340 ml IV Total 275 ml Tube Feeding 165 ml 275 ml # Voids 2 Laboratory Tests Test 07/29/19 09:19 White Blood Count 4.9 K/UL (4.8-10.8) Red Blood Count 4.39 M/UL (4.20-5.40) Hemoglobin 13.2 G/DL (12.0-16.0) Hematocrit 37.9 % (37.0-47.0) Mean Corpuscular Volume 87 FL (80-99) Mean Corpuscular Hemoglobin 30.1 PG (27.0-31.0) Mean Corpuscular Hemoglobin Concent 34.9 G/DL (32.0-36.0) Red Cell Distribution Width 11.6 % (11.6-14.8) Platelet Count 126 K/UL (150-450) L Mean Platelet Volume 6.8 FL (6.5-10.1) Neutrophils (%) (Auto) % (45.0-75.0) Lymphocytes (%) (Auto) % (20.0-45.0) Monocytes (%) (Auto) % (1.0-10.0) Eosinophils (%) (Auto) % (0.0-3.0) Basophils (%) (Auto) % (0.0-2.0) Differential Total Cells Counted 100 Neutrophils % (Manual) 73 % (45-75) Lymphocytes % (Manual) 25 % (20-45) Monocytes % (Manual) 2 % (1-10) Eosinophils % (Manual) 0 % (0-3) Basophils % (Manual) 0 % (0-2) Band Neutrophils 0 % (0-8) Platelet Estimate Decreased L Platelet Morphology Normal Red Blood Cell Morphology Normal Urine Color Yellow Urine Appearance Slightly cloudy Urine pH 6 (4.5-8.0) Urine Specific [place] 1.015 (1.005-1.035) Urine Protein 2+ (NEGATIVE) H Urine Glucose (UA) Negative (NEGATIVE) Urine Ketones 3+ (NEGATIVE) H Urine Blood 2+ (NEGATIVE) H Urine Nitrite Positive (NEGATIVE) H Urine Bilirubin Negative (NEGATIVE) Urine Urobilinogen 4 MG/DL (0.0-1.0) H Urine Leukocyte Esterase 1+ (NEGATIVE) H Urine RBC 2-4 /HPF (0 - 2) H Urine WBC 2-4 /HPF (0 - 2) Urine Squamous Epithelial Cells Few /LPF (NONE/OCC) Urine Bacteria Many /HPF (NONE) H Sodium Level 141 MMOL/L (136-145) Potassium Level 4.1 MMOL/L (3.5-5.1) Chloride Level 104 MMOL/L (98-107) Carbon Dioxide Level 24 MMOL/L (21-32) Anion Gap 13 mmol/L (5-15) Blood Urea Nitrogen 22 mg/dL (7-18) H Creatinine 1.0 MG/DL (0.55-1.30) Estimat Glomerular Filtration Rate 55.0 mL/min (>60) Glucose Level 85 MG/DL (74-106) Lactic Acid Level 1.50 mmol/L (0.4-2.0) Calcium Level 8.8 MG/DL (8.5-10.1) Total Bilirubin 0.3 MG/DL (0.2-1.0) Aspartate Amino Transf (AST/SGOT) 33 U/L (15-37) Alanine Aminotransferase (ALT/SGPT) 23 U/L (12-78) Alkaline Phosphatase 62 U/L (46-116) Total Creatine Kinase 237 U/L (26-308) Creatine Kinase MB 0.7 NG/ML (0.0-3.6) Creatine Kinase MB Relative Index 0.2 Troponin I 0.000 ng/mL (0.000-0.056) Pro-B-Type Natriuretic Peptide 116 pg/mL (0-125) Total Protein 7.7 G/DL (6.4-8.2) Albumin 2.9 G/DL (3.4-5.0) L Globulin 4.8 g/dL Albumin/Globulin Ratio 0.6 (1.0-2.7) L Microbiology Date/Time Source Procedure Growth Status 07/29/19 08:05 Nasal Nares - Final Complete 07/29/19 08:05 Nasal Nares - Final Complete 07/29/19 08:05 Rectum Received Height (Feet): 5 Height (Inches): 1.00 Weight (Pounds): 114 Medications Current Medications Medications (Trade) Dose Ordered Sig/Shanta Route PRN Reason Start Time Stop Time Status Last Admin Dose Admin Acetaminophen (Tylenol) 650 mg Q4H PRN GT Mild Pain (Pain Scale 1-3) 07/29/19 14:00 08/28/19 13:59 Acetaminophen (Tylenol) 650 mg Q4H PRN GT TEMP >101 07/29/19 14:00 08/28/19 13:59 Azithromycin 500 mg/Dextrose 275 ml @ 275 mls/hr Q24H IV 07/29/19 16:00 08/04/19 16:59 07/29/19 16:15 Dextrose (Dextrose 50%) 25 ml Q30M PRN IV Hypoglycemia 07/29/19 17:45 10/27/19 17:44 Dextrose (Dextrose 50%) 50 ml Q30M PRN IV Hypoglycemia 07/29/19 17:45 10/27/19 17:44 Docusate Sodium (Colace) 100 mg TWICE A DAY GT 07/29/19 18:00 08/28/19 17:59 07/29/19 18:21 Glyburide (Diabeta) 5 mg BIAC GT 07/29/19 16:30 08/28/19 16:29 07/29/19 18:21 Heparin Sodium (Porcine) (Heparin 5000 units/ml) 5,000 units EVERY 12 HOURS SUBQ 07/29/19 21:00 09/12/19 20:59 Insulin Aspart (NovoLOG) Q6HR SUBQ 07/29/19 18:00 10/27/19 17:59 Levothyroxine Sodium (Synthroid) 100 mcg DAILY@0630 GT 07/30/19 06:30 08/29/19 06:29 Magnesium Hydroxide (Mom) 30 ml HSPRN PRN GT Constipation 07/29/19 14:00 08/28/19 13:59 Olanzapine (ZyPREXA) 2.5 mg BID GT 07/29/19 18:00 09/12/19 17:59 07/29/19 18:21 Assessment/Plan Status: stable Status Narrative Fever Schizophrenia Covid 19 infection DM II Assessment/Plan: See orders MIPS Hospital declaration INPATIENT level of care is warranted for this patient because patient is a 89 year old with who presents with suspicion of . I have a high level of concern because . Patient is at high risk for . Plan of care/treatment include . Patient care is expected to be greater than 2 midnights. OBSERVATION level of care is warranted for this patient. Patient is a 89 year old with who presents with . Patient will be admitted for 1 midnight, but if additional night(s) is/are necessary, patient will be converted to inpatient status for the entire hospitalization Disposition: Once the patient is stable to leave the hospital, I anticipate the patient will likely be discharged to the following environment: Estimated discharge date: I spent 70 minutes on this patient's case, and minutes was dedicated to counseling and/or care coordination. MIPS (Merit-based Incentive Payment System) Applicable CPT: 86582, 41960 CHECK ALL THAT ARE MET: Measure #5 (CHF): All ages. Prescribe LAURA/ARB upon discharge for patients with left ventricular systolic dysfunction. If not, the reason is clearly documented in the medical chart. Measure #8 (CHF): All ages. Prescribe a beta chucho upon discharge for patients with left ventricular systolic dysfunction. If not, the reason is clearly documented in the medical chart. Measure #47 Advance care plan or surrogate decision maker documented in the medical record. Measure #130 The provider has documented, updated, or reviewed the patients current medication list and has documented it in the patients note. Measure #374 (All): Send report to referring provider. Measure #407(Sepsis due to MSSA bacteremia): Age 18+ Patient treated with a beta-lactam antibiotic (Nafcillin, Oxacillin or Cefazolin) as definitive therapy. MEDICAL COMPLEXITY High complexity medical decision making (need 2/3 categories) Problem - need 4 points Acute/new problem with new plan for workup (4 points, 1 max) Acute/new problem without additional workup (3 points, 1 max) Unstable chronic problem actively being managed (2 point each, 2 max) Stable chronic problem actively being managed (1 point each, 2 max) Self-limited/transient process (constipation, muscle ache, etc) (1 point each , 2 max) Data - need 4 points Reviewed labs/imaging studies (1 points, 2 max) Independent review of imaging (EKG, xrays, etc) (2 points, 2 max) Discussed case with consult/other MD/RN (2 points, 2 max) High Risk - qualify if have one of the following: Severe exacerbation of acute problem, acute mental status change, IV narcotics , monitoring drug levels (vancomycin, INR, tacrolimus etc) Isaias Christopher MD Jul 30, 2019 02:16
[2019-07-30 04:00] VITALS: BP 132/60
[2019-07-30] MEDS: NovoLOG Insulin Flexpen SUBQ SCH ×3 (05:47→18:00)
--- NOTE | 2019-07-30 07:11 | NUR ---
HAND-OFF: Report given to Aleksandra Valdovinos LVN.
--- NOTE | 2019-07-30 07:30 | NUR ---
NURSE NOTES: Received patient awake, confused, mumbles, potentially remove devices on bilateral soft wrist restraints. combative @ times. Gtube feeding tolerating well and no gastric residual noted. hob elevated for aspiration precautions. bed is in the lowest position. siderails are up x3. bed brakes and locked engaged. call light is within reach. will cont to monitor.
[2019-07-30 08:00] VITALS: BP 106/65
[2019-07-30] MEDS: OLANZapine 2.5mg tab GT SCH ×2 (08:22→17:37)
[2019-07-30] MEDS: Docusate 100mg/10ml Liq GT SCH ×2 (08:22→17:37)
[2019-07-30] MEDS: Heparin 5000 units/ml inj SUBQ SCH ×2 (08:22→20:21)
--- NOTE | 2019-07-30 10:37 | NUR ---
*-* INSURANCE *-* ALL AVAILABLE CLINICALS HAVE BEEN FAXED TO: [facility] P:[phone] ext [phone] F: [phone] Tel Num for Status: [phone] Tel Num for D/C [phone] Addendum: 07/30/19 at 1039 by ARAMIS HANSEN CM [phone]
--- NOTE | 2019-07-30 11:05 | NUR ---
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 CURRENT TF:Glucerna 1.2 @ 55ml/hr x 22 hrs ENTERAL NUTRITION RECOMMENDATIONS: Glucerna 1.2 @ 55ml/hr x 22 hrs to provide 1210ml, 1452kcal, 73g prot, 974ml free water * Maintain current TF- meets 100% est kcal/prot needs * Hold 1 hr before and after Synthroid med * HOB over 30 degrees/ water flush of 130ml q 6 hrs -------- WHILE GLUCERNA 1.2 LOW IN STOCK -> rec Glucerna 1.5 @ 45ml/hr x 22 hrs (HOLD 1 HR BEFORE AND AFTER SYNTHROID) to provide 990ml, 1485kcal, 82g prot, 751ml free water ADDITIONAL RECOMMENDATIONS: 1) Per SNF: H T=60" AK=831liz as of 07/13/19 2) Monitor BGs closely for hypoglycemia 3) Check lytes daily, replete as needed 4) Rec WC eval-> wound photos @ rt foot and lt heel 5) RAILROAD CONDUCTOR eval for oral gral if appropriate [facility] @ [facility]
[2019-07-30 12:02] VITALS: BP 90/55
[2019-07-30] MEDS: Acetaminophen 650mg/20.3ml GT PRN (15:36)
--- NOTE | 2019-07-30 15:40 | NUR ---
NURSE NOTES: acetaminophen givrn for temp 101. via axillary. comfort measures done. patient is tolerating tube feeding well. kept hob elevated. will cont to monitor.
[2019-07-30 16:00] VITALS: BP 90/55
[2019-07-30] MEDS: Azithromycin 500 MG in D5W 275 ML IV SCH (16:34)
[2019-07-30 18:02] VITALS: BP 100/64
--- NOTE | 2019-07-30 18:55 | NUR ---
HAND-OFF: Report given to Lauren.
--- NOTE | 2019-07-30 19:30 | NUR ---
NURSE NOTES: Patient asleep in bed, no SOB noted, no signs of pain. With bilateral soft wrists restraints. Pulses are palpable. With gtube feeding of Glucerna 1.2@ 55ml/hr. With IV access on bilateral arms. Bed in lowest, lock engaged and alarm on. Will continue to plan of care.
[2019-07-30 20:00] VITALS: BP 92/53
--- NOTE | 2019-07-30 22:03 | General Progress Note ---
Assessment/Plan Problem List: (1) Schizophrenia Qualifiers: Qualified Codes: F20.0 - Paranoid schizophrenia (2) Failure to thrive (3) Encounter for generalized patient complaints ICD Codes: Z00.8 - Encounter for other general examination SNOMED: 885735365 (4) Dehydration ICD Codes: E86.0 - Dehydration SNOMED: 39242830 (5) UTI (urinary tract infection) ICD Codes: N39.0 - Urinary tract infection, site not specified SNOMED: 65506823 Qualifiers: Qualified Codes: N39.0 - Urinary tract infection, site not specified (6) Fever ICD Codes: R50.9 - Fever, unspecified SNOMED: 784134349 Qualifiers: Qualified Codes: R50.9 - Fever, unspecified Status: stable Status Narrative Awaiting result of [facility]. Assessment/Plan: See orders Subjective Date patient seen: Jul 30, 2019 ROS Limited/Unobtainable: No Constitutional: Reports: no symptoms HEENT: Reports: no symptoms Cardiovascular: Reports: no symptoms Respiratory: Reports: no symptoms Genitourinary: Reports: no symptoms Neurologic/Psychiatric: Reports: no symptoms Endocrine: Reports: no symptoms Hematologic/Lymphatic: Reports: no symptoms Allergies: Coded Allergies: PENICILLINS (Verified Allergy, Mild, 06/13/13) Objective Last 24 Hour Vital Signs Date Time Temp Pulse Resp B/P (MAP) Pulse Ox O2 Delivery O2 Flow Rate FiO2 07/30/19 18:02 100/64 (76) 07/30/19 17:36 99.3 07/30/19 16:00 101.0 106 18 90/55 (67) 97 07/30/19 12:02 99.2 109 19 90/55 (67) 95 07/30/19 09:00 Room Air 07/30/19 08:00 99.8 114 21 106/65 (79) 99 07/30/19 04:00 98.2 110 20 132/60 (84) 95 Intake and Output 07/29/19 07/30/19 19:00 07:00 Intake Total 780 ml 760 ml Balance 780 ml 760 ml Intake Oral 0 ml Free Water 340 ml 100 ml IV Total 275 ml Tube Feeding 165 ml 660 ml # Voids 2 2 Height (Feet): 5 Height (Inches): 1.00 Weight (Pounds): 114 General Appearance: WD/WN EENT: PERRL/EOMI Neck: non-tender Cardiovascular: normal peripheral pulses, normal rate, regular rhythm, regularly irregular Respiratory/Chest: chest wall non-tender Abdomen: normal bowel sounds Pelvis: normal external exam Extremities: non-tender, no calf tenderness Neurologic: alert, responsive Skin: normal pigmentation Isaias Christopher MD Jul 30, 2019 22:03
[2019-07-31] VITALS: BP 96/57
[2019-07-31 04:00] VITALS: BP 102/50
[2019-07-31] MEDS: NovoLOG Insulin Flexpen SUBQ SCH ×5 (05:19→23:46)
--- NOTE | 2019-07-31 07:45 | NUR ---
NURSE NOTES: Received report from LINDA Kowalski. patient awake, confused, mumbles. No SOB, No non verbal s/s of pain noted. Gtube feeding tolerating well and no gastric residual noted. hob elevated for aspiration precautions. bed is in the lowest position. siderails are up x3. bed brakes and locked engaged. call light is within reach. will cont to monitor.
--- NOTE | 2019-07-31 07:50 | NUR ---
HAND-OFF: Report given to Ms. Hardik Wiley RN.
[2019-07-31 08:00] VITALS: BP 98/60
[2019-07-31] MEDS: OLANZapine 2.5mg tab GT SCH ×2 (08:57→17:37)
[2019-07-31] MEDS: Docusate 100mg/10ml Liq GT SCH ×2 (08:57→17:37)
[2019-07-31] MEDS: Heparin 5000 units/ml inj SUBQ SCH ×2 (08:59→20:03)
--- NOTE | 2019-07-31 09:48 | NUR ---
CASE MANAGEMENT: INITIAL REVIEW 68YR OLD FEMALE FROM [facility] CC: FEVER . COVID R/O SI:FEVER . COVID R/O . UTI KLEBSIELLA PNEUMONIAE . PNA 102.0 102 18 126/76 96% ON RA PLT 126 BUN 22 ALBUMIN 2.9 IS:IV LEVAQUIN X1 IVF NS BOLUS X1 HALDOL IM X1 ATIVAN IM X1 TYLENOL MI X1 CHEST X-RAY- edema versus pneumonia. \: [facility]E [facility]G [facility] DCP: [facility] PLAN: COVID R/O (+) CASE MANAGEMENT: REVIEW 07/30/19 SI:FEVER . COVID (+) . UTI KLEBSIELLA PNEUMONIAE. PNA 101.0 106 18 90/55 97% ON RA IS:IV ZITHROMAX Q24HR GT ZYPREXA BID NOVOLOG SQ Q6HR DIABETA GT BIAC \: 4E [facility]G [facility]IT DCP: [facility] PLAN: IV ABX CASE MANAGEMENT: REVIEW 07/31/19 SI:FEVER . COVID (+) . UTI KLEBSIELLA PNEUMONIAE . PNA . SCHIZOPHRENIA 97.0 91 19 102/50 93% ON RA IS:IV ZITHROMAX Q24HR GT ZYPREXA BID NOVOLOG SQ Q6HR DIABETA GT BIAC \: 4E [facility]G [facility]IT DCP: [facility] PLAN: IV ABX
[2019-07-31 12:00] VITALS: BP 98/55
[2019-07-31 16:00] VITALS: BP 118/69
[2019-07-31] MEDS: Azithromycin 500 MG in D5W 275 ML IV SCH (16:40)
--- NOTE | 2019-07-31 17:20 | NUR ---
NURSE NOTES:WOUND CARE NOTES:Pt presented on admission with multiple pressure injuries. Non-blanching erythema without fluctuance Sacrum. Partial thickness lateral R foot. wound is small and base of wound is viable, with surrounding non-blanching erythema.NO exudate noted. L heel is boggy with non-blanching erythema. R heel is boggy with non-blanching erythema. Tx.Plan: Apply Moisture Barrier Paste to Sacrum. Cover with Optifoam drsg. Change every 3 days and prn. Apply Cavilon Skin Barrier to both heels. Cover each heel with Optifoam drsg. Change every 7 days and prn. Apply Cavilon Skin Barrier to lateral R foot. Cover with Optifoam drsg. Change every 7 days and prn Reposition at least every 2hours or as tolerated. Off-load heels with Pillow.
--- NOTE | 2019-07-31 19:30 | NUR ---
NURSE NOTES: Patient asleep in bed, no signs of pain, not in respiratory distress. With bilateral soft wrists restraints in place. With gtube feeding of Glucerna 1.2@ 55ml/hr. With IVs on right arm, not flushing. Will insert new IV access. Bed in lowest, lock engaged and alarm on. Will continue to plan of care.
--- NOTE | 2019-07-31 20:00 | NUR ---
HAND-OFF: Report given to Ms. Rosi RN.
--- NOTE | 2019-07-31 21:10 | NUR ---
NURSE NOTES: Patient was not cooperative, combative and using derogatory words on RNs. IV inserted on right arm g.22 successfully.
[2019-08-01] VITALS: BP 117/82
[2019-08-01 04:00] VITALS: BP 113/65
[2019-08-01] MEDS: NovoLOG Insulin Flexpen SUBQ SCH ×3 (05:34→18:44)
--- NOTE | 2019-08-01 07:07 | NUR ---
HAND-OFF: Report given to LINDA Walter.
[2019-08-01 08:00] VITALS: BP 118/69
[2019-08-01] MEDS: Heparin 5000 units/ml inj SUBQ SCH ×2 (08:06→20:05)
[2019-08-01] MEDS: Docusate 100mg/10ml Liq GT SCH ×2 (08:06→18:30)
[2019-08-01] MEDS: OLANZapine 2.5mg tab GT SCH ×2 (08:06→18:30)
[2019-08-01 12:00] VITALS: BP 113/75
--- NOTE | 2019-08-01 14:57 | NUR ---
NURSE NOTES: PT AXOX1, RAMBLING, CURSING IN [place]. PT ATTEMPTS TO SPIT AND HIT STAFF. WHEN RN RELEASES SOFT WRIST RESTRAINT, PT ATTEMPTS TO SWAT AWAY RN. PT UNABLE TO UNDERSTAND RN'S EDUCATION ON MEDICATION OR PLAN OF CARE. VSS. IN NO APPARENT DISTRESS AT THIS TIME. BED IN LOWEST POSITION WITH BEDSIDE RAILS X3 RAISED. BED ALARM ON. BILATERAL RADIAL PULSES ARE PALPABLE, NO SWELLING NOTED IN AREA OF RESTRAINTS, AND SKIN IS INTACT. WILL CONTINUE TO MONITOR.
[2019-08-01] MEDS: Azithromycin 500 MG in D5W 275 ML IV SCH (15:14)
--- NOTE | 2019-08-01 15:15 | NUR ---
CASE MANAGEMENT: REVIEW 07/31/19 SI:FEVER W/COVID (+) . UTI KLEBSIELLA PNEUMONIAE . PNA . SCHIZOPHRENIA .DEHYDRATION 99.7 93 20 118/69 95% ON RA IS:IV ZITHROMAX Q24HR X 7BAGS GT ZYPREXA BID NOVOLOG SQ Q6HR DIABETA GT BIAC SYNTHROID GT QD HEPARIN SQ BID \: 4E [facility] DCP: [facility] PLAN: CONT IV ABX Addendum: 08/02/19 at 1159 by ЕЛЕНА CARRASCO LVN 08/01/19
--- NOTE | 2019-08-01 15:25 | NUR ---
*-* INSURANCE *-* ALL AVAILABLE CLINICALS HAVE BEEN FAXED TO: [facility] P:[phone] ext [phone] F: [phone] Tel Num for Status: [phone] Tel Jhony for D/C [phone]
[2019-08-01 16:00] VITALS: BP 122/66
--- NOTE | 2019-08-01 16:55 | NUR ---
NURSE NOTES: RN RECEIVED CALL FROM PHARMACY REGARDING PT'S AZITHROMYCIN NOT TREATING UTI. RN MADE DR MCLEOD AWARE, RECEIVED NEW ORDER FOR IV LEVAQUIN 500MG DAILY. ALSO RECEIVED ORDER FOR [facility]: DCP TO [facility]. RN MADE AWARE PT TESTED POSITIVE FOR COVID 19 WITH NO FOLLOW UP TESTS. PER DR MCLEOD "IT DOESN'T MATTER. [facility] AND TREATING EVERYONE LIKE KEMP." RN MADE VERNON CHRISTIANSEN, AWARE OF [facility] ORDER.
--- NOTE | 2019-08-01 18:50 | NUR ---
NURSE NOTES: RN MESSAGED PHARMACY REGARDING MISSING IV LEVAQUIN SCHEDULED FOR 1800HRS. WILL ENDORSE TO NEXT RN.
--- NOTE | 2019-08-01 19:00 | NUR ---
NURSE NOTES: Patient asleep in bed, no SOB noted. Easily awaken by movements in the room then gets agitated. With bilateral soft wrists restraints. Call light in reach. Bed in lowest, lock engaged and alarm on. Will continue plan of care.
--- NOTE | 2019-08-01 19:24 | NUR ---
HAND-OFF: Report given to Lilly MOORE RN.
[2019-08-01 20:00] VITALS: BP 129/68
[2019-08-02] VITALS: BP 131/67
[2019-08-02] MEDS: NovoLOG Insulin Flexpen SUBQ SCH ×6 (00:42→23:56)
--- NOTE | 2019-08-02 01:30 | General Progress Note ---
Assessment/Plan Problem List: (1) Schizophrenia Qualifiers: Qualified Codes: F20.0 - Paranoid schizophrenia (2) Failure to thrive (3) Encounter for generalized patient complaints ICD Codes: Z00.8 - Encounter for other general examination SNOMED: 279988125 (4) Dehydration ICD Codes: E86.0 - Dehydration SNOMED: 33643154 (5) UTI (urinary tract infection) ICD Codes: N39.0 - Urinary tract infection, site not specified SNOMED: 52733609 Qualifiers: Qualified Codes: N39.0 - Urinary tract infection, site not specified (6) Fever ICD Codes: R50.9 - Fever, unspecified SNOMED: 083305940 Qualifiers: Qualified Codes: R50.9 - Fever, unspecified Status: stable Assessment/Plan: Discharge planning underway Subjective Date patient seen: Aug 01, 2019 Time patient seen: 23:50 ROS Limited/Unobtainable: Yes Constitutional: Reports: weakness HEENT: Reports: no symptoms Cardiovascular: Reports: no symptoms Gastrointestinal/Abdominal: Reports: no symptoms, poor appetite Genitourinary: Reports: no symptoms Neurologic/Psychiatric: Reports: emotional problems, pre-existing deficit, weakness Endocrine: Reports: no symptoms Hematologic/Lymphatic: Reports: no symptoms Allergies: Coded Allergies: PENICILLINS (Verified Allergy, Mild, 06/13/13) Objective Last 24 Hour Vital Signs Date Time Temp Pulse Resp B/P (MAP) Pulse Ox O2 Delivery O2 Flow Rate FiO2 08/01/19 21:00 Room Air 08/01/19 20:00 98.2 76 24 129/68 (88) 92 08/01/19 16:00 98.1 98 20 122/66 (84) 94 08/01/19 12:00 99.3 90 16 113/75 (88) 94 08/01/19 09:00 Room Air 08/01/19 08:00 99.7 93 20 118/69 (85) 95 08/01/19 04:00 97.8 77 19 113/65 (81) 98 Intake and Output 08/01/19 08/02/19 19:00 07:00 Intake Total 655 ml Balance 655 ml Free Water 160 ml Tube Feeding 495 ml Height (Feet): 5 Height (Inches): 1.00 Weight (Pounds): 113 EENT: PERRL/EOMI Cardiovascular: normal peripheral pulses Respiratory/Chest: lungs clear Abdomen: normal bowel sounds Extremities: non-tender Neurologic: abnormal gait, alert, sensory deficit Skin: warm/dry Lymphatic: normal anterior cervical (L), normal anterior cervical (R), normal posterior cervical (L), normal posterior cervical (R), normal submandibular (L) , normal submandibular (R), normal supraclavicular (L), normal supraclavicular ( R), normal axillary (L), normal axillary (R), normal inguinal (L), normal inguinal (R), normal other Isaias Christopher MD Aug 02, 2019 01:30
[2019-08-02 04:00] VITALS: BP 125/78
--- NOTE | 2019-08-02 07:06 | NUR ---
HAND-OFF: Report given to LINDA Walter.
--- NOTE | 2019-08-02 07:44 | NUR ---
HAND-OFF: Report given to LINDA Walter.
[2019-08-02 08:00] VITALS: BP 110/66
[2019-08-02] MEDS: Heparin 5000 units/ml inj SUBQ SCH ×2 (08:07→20:48)
[2019-08-02] MEDS: Docusate 100mg/10ml Liq GT SCH ×2 (08:08→18:38)
[2019-08-02] MEDS: OLANZapine 2.5mg tab GT SCH ×2 (08:08→18:38)
[2019-08-02 12:00] VITALS: BP 121/68
--- NOTE | 2019-08-02 12:00 | NUR ---
CASE MANAGEMENT: REVIEW 08/02/19 SI:FEVER W/COVID (+) . UTI KLEBSIELLA PNEUMONIAE . PNA . SCHIZOPHRENIA .DEHYDRATION 99.8 112 20 110/66 95% ON RA IS:IV LEVAQUIN Q48HR GT ZYPREXA BID NOVOLOG SQ Q6HR DIABETA GT BIAC SYNTHROID GT QD HEPARIN SQ BID \: 4E MED SURG [facility] DCP: [facility] PLAN: SWITCH IV ABX DC PLANNING
--- NOTE | 2019-08-02 14:24 | NUR ---
NURSE NOTES: PT CONTINUES TO BE RESTLESS, COMBATIVE AND CURSING AT STAFF. PT WILL BE CALM WHEN RN ENTERING ROOM. WHEN STAFF COMES CLOSE TO PT, PT WILL START SCREAMING AND CURSING. WHEN STAFF TOUCHES PT TO CLEAN OR REPOSITION, PT CURSES AND TRIES TO SPIT AT STAFF. PT ATTEMPTS TO HIT STAFF WHEN RELEASED FROM RESTRAINTS FOR TOILETING. PT IS UNRECEPTIVE TO EDUCATION, CONTINUES TO SCREAM UNTIL STAFF LEAVES ROOM. BILATERAL SOFT WRIST RESTRAINTS IN PLACE. PT HAS NO SWELLING OR SKIN IMPAIRMENT AT SITE OF RESTRAINTS. RADIAL PULSES PALPABLE. BED IN LOWEST POSITION WITH BEDSIDE RAILS X3 RAISED. BED ALARM ON. IN NO APPARENT DISTRESS AT THIS TIME.
--- NOTE | 2019-08-02 14:30 | NUR ---
*-* INSURANCE *-* ALL AVAILABLE CLINICALS HAVE BEEN FAXED TO: [facility] P:[phone] ext [phone] F: [phone] Tel Num for Status: [phone] Tel Jhony for D/C [phone]
[2019-08-02 15:45] VITALS: BP 118/65
--- NOTE | 2019-08-02 19:29 | NUR ---
HAND-OFF: Report given to Cyn GUILLEN RN.
[2019-08-02 20:00] VITALS: BP_SYST 103; BP_SYST 108; BP_DIAS 48; BP_DIAS 62
--- NOTE | 2019-08-02 20:00 | NUR ---
NURSE NOTES: Patient received in bed, calm at this time, combative when touched. Appears in no acute distress at this time. GT tolerating well. Bilateral soft wrist restraints applied. Skin intact, no swelling noted. Pulses present. Bed is locked in low position. bed alarm on. Will continue to monitor.
[2019-08-02] MEDS: Acetaminophen 650mg/20.3ml GT PRN (20:55)
[2019-08-03] VITALS: BP 115/51
[2019-08-03 04:00] VITALS: BP 128/72
--- NOTE | 2019-08-03 05:32 | General Progress Note ---
Assessment/Plan Problem List: (1) Schizophrenia Qualifiers: Qualified Codes: F20.0 - Paranoid schizophrenia (2) Failure to thrive (3) Encounter for generalized patient complaints ICD Codes: Z00.8 - Encounter for other general examination SNOMED: 202485734 (4) Dehydration ICD Codes: E86.0 - Dehydration SNOMED: 86409295 (5) UTI (urinary tract infection) ICD Codes: N39.0 - Urinary tract infection, site not specified SNOMED: 58486175 Qualifiers: Qualified Codes: N39.0 - Urinary tract infection, site not specified (6) Fever ICD Codes: R50.9 - Fever, unspecified SNOMED: 610002709 Qualifiers: Qualified Codes: R50.9 - Fever, unspecified Status: doing well, stable Assessment/Plan: Discharge planning underway Subjective Date patient seen: Aug 02, 2019 Time patient seen: 22:30 Constitutional: Reports: no symptoms HEENT: Reports: no symptoms Gastrointestinal/Abdominal: Reports: no symptoms Genitourinary: Reports: no symptoms Neurologic/Psychiatric: Reports: emotional problems, pre-existing deficit Endocrine: Reports: no symptoms Hematologic/Lymphatic: Reports: no symptoms Allergies: Coded Allergies: PENICILLINS (Verified Allergy, Mild, 06/13/13) Objective Last 24 Hour Vital Signs Date Time Temp Pulse Resp B/P (MAP) Pulse Ox O2 Delivery O2 Flow Rate FiO2 08/03/19 00:00 99.8 97 20 115/51 (72) 94 08/02/19 21:25 99.5 08/02/19 21:00 Room Air 08/02/19 20:00 100.0 92 20 103/48 (66) 94 08/02/19 15:45 98.6 112 20 118/65 (82) 95 08/02/19 12:00 98.2 109 20 121/68 (85) 95 08/02/19 09:00 Room Air 08/02/19 08:00 99.8 112 20 110/66 (81) 95 Intake and Output 08/02/19 08/03/19 19:00 07:00 Intake Total 770 ml 370 ml Balance 770 ml 370 ml Free Water 230 ml 100 ml Tube Feeding 540 ml 270 ml # Voids 2 # Bowel Movements 3 Height (Feet): 5 Height (Inches): 1.00 Weight (Pounds): 113 General Appearance: no apparent distress EENT: PERRL/EOMI, normal ENT inspection Neck: non-tender, normal alignment, supple Cardiovascular: normal peripheral pulses, normal rate, regular rhythm Respiratory/Chest: chest wall non-tender Abdomen: normal bowel sounds, non tender, soft Pelvis: normal external exam Genitourinary/Rectal: normal genital exam Extremities: normal range of motion Edema: no edema noted Arm (L), no edema noted Arm (R), no edema noted Leg (L), no edema noted Leg (R), no edema noted Pedal (L), no edema noted Pedal (R), no edema noted Generalized Edema: trace edema Neurologic: rehab nursing tech II-XII grossly normal, no motor/sensory deficits, abnormal gait Skin: normal pigmentation Isaias Christopher MD Aug 03, 2019 05:32
[2019-08-03] MEDS: NovoLOG Insulin Flexpen SUBQ SCH ×3 (06:44→18:00)
--- NOTE | 2019-08-03 06:58 | NUR ---
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 * Increased kcal/prot needs R/T wound healing as evidenced by admitted w/ non-blanching erythema at sacrum and BL heels, and partial thickness wound at lateral R foot. CURRENT TF:Glucerna 1.2 @ 55ml/hr x 22 hrs ENTERAL NUTRITION RECOMMENDATIONS: Glucerna 1.2 @ 55ml/hr x 22 hrs to provide 1210ml, 1452kcal, 73g prot, 974ml free water * Maintain current TF- meets 100% est kcal/prot needs * Hold 1 hr before and after Synthroid med * HOB over 30 degrees/ water flush of 130ml q 6 hrs -------- WHILE GLUCERNA 1.2 LOW IN STOCK -> rec Glucerna 1.5 @ 45ml/hr x 22 hrs to provide 990ml, 1485kcal, 82g prot, 751ml free water ADDITIONAL RECOMMENDATIONS: 1) Per SNF: H T=60" OX=168fzo as of 07/13/19 2) Monitor BGs closely for hypoglycemia (hypoglycemic x 1 07/28) 3) Check lytes daily, replete as needed 4) Wound healing: Add vit C 250mgQD + John BID 5) RESEARCH CHEMICAL ENGINEER eval for oral gral if appropriate -> [facility] lunch for oral grat @ SNF
--- NOTE | 2019-08-03 07:26 | NUR ---
HAND-OFF: Report given to Jesus Montez RN.
--- NOTE | 2019-08-03 07:59 | NUR ---
NURSE NOTES: pt is asleep in bed. respiration is even and unlabored on room air. bilateral wrist restrain is in-place. no acute distress noted at this time. bed is in locked position for fall precaution.
[2019-08-03 08:00] VITALS: BP 125/68
[2019-08-03] MEDS: Heparin 5000 units/ml inj SUBQ SCH ×3 (09:00→21:13)
[2019-08-03] MEDS: Docusate 100mg/10ml Liq GT SCH ×2 (10:09→17:31)
[2019-08-03] MEDS: OLANZapine 2.5mg tab GT SCH ×2 (10:09→17:30)
--- NOTE | 2019-08-03 10:16 | NUR ---
*-* INSURANCE *-* ALL AVAILABLE CLINICALS HAVE BEEN FAXED TO: [facility] P:[phone] ext [phone] F: [phone] Tel Jhony for D/C [phone]
[2019-08-03 10:26] LABS: BASOPHILS % (AUTO) 2.1 % (0.0-2.0); EOSINOPHILS % (AUTO) 5.2 % (0.0-3.0); HEMATOCRIT 36.3 % (37.0-47.0); HEMOGLOBIN 12.7 G/DL (12.0-16.0); LYMPHOCYTES % (AUTO) 34.3 % (20.0-45.0); MEAN CORPUSCULAR VOLUME 87 FL (80-99); NEUTROPHILS % (AUTO) 48.4 % (45.0-75.0); PLATELET COUNT 419 K/UL (150-450); RED BLOOD COUNT 4.17 M/UL (4.20-5.40); RED CELL DISTRIBUTION WIDTH 11.4 % (11.6-14.8); WHITE BLOOD COUNT 7.7 K/UL (4.8-10.8)
[2019-08-03 11:54] LABS: ALANINE AMINOTRANSFERASE 47 U/L (12-78); ALBUMIN 2.7 G/DL (3.4-5.0); ALBUMIN/GLOBULIN RATIO 0.5 (1.0-2.7); ALKALINE PHOSPHATASE 70 U/L (46-116); ANION GAP 11 mmol/L (5-15); ASPARTATE AMINO TRANSFERASE 43 U/L (15-37); BILIRUBIN,TOTAL 0.2 MG/DL (0.2-1.0); BLOOD UREA NITROGEN 27 mg/dL (7-18); CALCIUM 9.3 MG/DL (8.5-10.1); CARBON DIOXIDE 26 MMOL/L (21-32); CHLORIDE 111 MMOL/L (98-107); CREATININE 0.7 MG/DL (0.55-1.30); POTASSIUM 5.5 MMOL/L (3.5-5.1); SODIUM 148 MMOL/L (136-145)
[2019-08-03 12:00] VITALS: BP 118/65
--- NOTE | 2019-08-03 12:25 | NUR ---
patient refusing blood sugar check, cursing at nurse and attempting to spit at nurse; educated patient the importance of blood sugar check, patient is non-compliant. paged left a message.
--- NOTE | 2019-08-03 14:10 | NUR ---
NURSE NOTES: REPORTED ABNORMAL POTASSIUM LAB 5.[address] HARSHA MD SAID HE CAN'T TELL WHY POTASSIUM IS HIGH AT THIS TIME. ORDERED STAT POTASSIUM, ORDER IS NOTED AND CARRIED OUT.
[2019-08-03 16:00] VITALS: BP 115/64
--- NOTE | 2019-08-03 16:21 | NUR ---
CASE MANAGEMENT:REVIEW SI;COVID-19 (+) PNA . UTI KLEBSIELLA PNEUMONIAE. SCHIZOPHRENIA. DEHYDRATION. FTT. 100.0 102 20 115/51 94% ON RA NA 148 K+ 5.5 BUN 27 BG 212 AST 43 ALB 2.7 IS;LEVAQUIN IV Q48 HRS SYNTHROID GT QD HEPARIN SUBQ Q12 HRS INSULIN NOVOLOG SUBQ Q6 HRS MED SURG STATUS DCP;FROM [facility]
[2019-08-03] MEDS ORDERED: Sodium Polystyrene Sulfonate 15gm Powder GT SCH (19:03)
--- NOTE | 2019-08-03 19:14 | NUR ---
NURSE NOTES: reported stat potassium level 5.[address] Ashwin MD ordered Kayexalate 30 g x1 via GT, order is noted and carried out.
--- NOTE | 2019-08-03 19:34 | NUR ---
HAND-OFF: Report given to Lopez.
--- NOTE | 2019-08-03 19:37 | NUR ---
NURSE NOTES: Pt. received from LINDA Lee. Pt. alert to name, no indications of respiratory distress and no complaints of pain. Bilateral soft wrist restrains, movement and sensation intact, pulses palpable. IV left upper arm 22g intact and patent, saline locked. Bed is low and locked, side rails x3 up, bed alarm active, and call light in reach. Will continue to monitor.
[2019-08-03 20:00] VITALS: BP 111/67
--- NOTE | 2019-08-03 21:45 | NUR ---
NURSE NOTES: Pt. combative, attempting to scratch nurse, yelling and screaming, and refusing medication. Pt. alert to name only, attempted to educate risks and benefits of refusing medication and pt. unable to comprehend. Charge nurse aware, will continue to monitor.
--- NOTE | 2019-08-03 23:30 | NUR ---
NURSE NOTES: Per Dr. Christopher, doctor wants pt. to be discharged as soon as possible citing pending discharge order. Dr. Christopher instructed to be called if there is a concern with receiving facility due to patients covid positive status; Dr. Christopher will speak with the receiving facility. Pt. is curently afebrile, no coughing, and satting well on room air >94%. RN discussed will endorse to day shift and Dr. Christopher agreed. Addendum: 08/04/19 at 0150 by Lopez Maurer RN Charge nurse aware.
[2019-08-04] VITALS: BP 105/62
--- NOTE | 2019-08-04 00:27 | General Progress Note ---
Assessment/Plan Problem List: (1) Schizophrenia Qualifiers: Qualified Codes: F20.0 - Paranoid schizophrenia (2) Failure to thrive (3) Encounter for generalized patient complaints ICD Codes: Z00.8 - Encounter for other general examination SNOMED: 095898683 (4) Dehydration ICD Codes: E86.0 - Dehydration SNOMED: 79194968 (5) UTI (urinary tract infection) ICD Codes: N39.0 - Urinary tract infection, site not specified SNOMED: 38259703 Qualifiers: Qualified Codes: N39.0 - Urinary tract infection, site not specified (6) Fever ICD Codes: R50.9 - Fever, unspecified SNOMED: 338104740 Qualifiers: Qualified Codes: R50.9 - Fever, unspecified Status: doing well, stable Status Narrative Will plan for discharge Assessment/Plan: Discharge planning underway Subjective Date patient seen: Aug 03, 2019 Time patient seen: 23:35 Constitutional: Reports: weakness HEENT: Reports: no symptoms Cardiovascular: Reports: no symptoms Respiratory: Reports: no symptoms Gastrointestinal/Abdominal: Reports: no symptoms Genitourinary: Reports: no symptoms Neurologic/Psychiatric: Reports: anxiety, emotional problems Endocrine: Reports: no symptoms Hematologic/Lymphatic: Reports: no symptoms Allergies: Coded Allergies: PENICILLINS (Verified Allergy, Mild, 06/13/13) Objective Last 24 Hour Vital Signs Date Time Temp Pulse Resp B/P (MAP) Pulse Ox O2 Delivery O2 Flow Rate FiO2 08/03/19 20:00 98.4 105 20 111/67 (82) 94 08/03/19 16:00 99.0 92 18 115/64 (81) 95 08/03/19 12:00 99.3 100 20 118/65 (82) 98 08/03/19 09:00 Room Air 08/03/19 08:00 99.1 102 19 125/68 (87) 98 08/03/19 04:00 99.5 100 20 128/72 (90) 96 Intake and Output 08/03/19 08/04/19 19:00 07:00 # Voids 2 # Bowel Movements 2 Laboratory Tests 08/03/19 10:00: White Blood Count 7.7, Red Blood Count 4.17L, Hemoglobin 12.7, Hematocrit 36.3L , Mean Corpuscular Volume 87, Mean Corpuscular Hemoglobin 30.4, Mean Corpuscular Hemoglobin Concent 35.0, Red Cell Distribution Width 11.4L, Platelet Count 419, Mean Platelet Volume 5.9L, Neutrophils (%) (Auto) 48.4, Lymphocytes (%) (Auto) 34.3, Monocytes (%) (Auto) 10.0, Eosinophils (%) (Auto) 5.2H, Basophils (%) (Auto) 2.1H, Sodium Level 148H, Potassium Level 5.5H, Chloride Level 111H, Carbon Dioxide Level 26, Anion Gap 11, Blood Urea Nitrogen 27H, Creatinine 0.7, Estimat Glomerular Filtration Rate > 60, Glucose Level 212H , Calcium Level 9.3, Total Bilirubin 0.2, Aspartate Amino Transf (AST/SGOT) 43H , Alanine Aminotransferase (ALT/SGPT) 47, Alkaline Phosphatase 70, Total Protein 7.9, Albumin 2.7L, Globulin 5.2, Albumin/Globulin Ratio 0.5L 08/03/19 14:40: Potassium Level 5.3H Height (Feet): 5 Height (Inches): 1.00 Weight (Pounds): 113 General Appearance: WD/WN EENT: PERRL/EOMI Neck: non-tender, supple, normal inspection Cardiovascular: normal peripheral pulses, normal rate, regular rhythm, no gallop/murmur Respiratory/Chest: chest wall non-tender Abdomen: normal bowel sounds, non tender, soft, no organomegaly Extremities: normal range of motion, non-tender, normal inspection Neurologic: events administrative assistant II-XII grossly normal, no motor/sensory deficits, abnormal gait Skin: normal pigmentation Isaias Christopher MD Aug 04, 2019 00:27
[2019-08-04] MEDS: NovoLOG Insulin Flexpen SUBQ SCH ×4 (00:28→17:43)
[2019-08-04 04:00] VITALS: BP 119/100
--- NOTE | 2019-08-04 04:50 | NUR ---
NURSE NOTES: Attempted to draw x2 with assist of another nurse, pt. belligerent, yelling, physically attacking nurses by scratching and punching. At risk of further injury to nurses, ceased further attempts. Lab called to notify, charge nurse aware.
--- NOTE | 2019-08-04 07:35 | NUR ---
HAND-OFF: Report given to LINDA Lee. Endorsed to follow up with discharge planning per Dr. Christopher.
--- NOTE | 2019-08-04 07:39 | NUR ---
NURSE NOTES: pt is awake, calm and quiet in bed. no SOB noted. bilateral wrist restrain is in-place, no skin breakdown noted. HOB elevated, will continue to monitor.
[2019-08-04 08:00] VITALS: BP 122/88
[2019-08-04] MEDS: Docusate 100mg/10ml Liq GT SCH ×2 (09:45→17:20)
[2019-08-04] MEDS: OLANZapine 2.5mg tab GT SCH ×2 (09:45→17:20)
[2019-08-04] MEDS: Heparin 5000 units/ml inj SUBQ SCH ×2 (09:46→20:43)
--- NOTE | 2019-08-04 12:00 | NUR ---
Received order from Dr. Christopher to renew bilateral soft wrist restraint, noted and carried out
--- NOTE | 2019-08-04 12:34 | NUR ---
NURSE NOTES: Patient combative at this time, refuses insulin administration.
[2019-08-04 16:00] VITALS: BP 131/77
--- NOTE | 2019-08-04 18:58 | NUR ---
HAND-OFF: Report given to Lopez.
--- NOTE | 2019-08-04 19:05 | NUR ---
NURSE NOTES: Pt. received from LINDA Lee. Pt. alert to name only, breathing is even and unlabored, no indications of pain at this time. Bilateral soft wrist restraints applied, movement and sensation intact, bilateral pulses palpable. IV access left upper arm 22g asymptomatic, intact and patent: saline locked. Gtube intact, running Glucerna 1.5 @ 45cc/hr. Head of bed is elevated, bed is low and locked, side rails x3 up, bed alarm active, and call light in reach. Will continue to monitor.
[2019-08-04 20:00] VITALS: BP 125/70
[2019-08-05] VITALS: BP 121/60
[2019-08-05] MEDS: NovoLOG Insulin Flexpen SUBQ SCH ×4 (00:17→17:16)
[2019-08-05 04:00] VITALS: BP 125/82
--- NOTE | 2019-08-05 04:28 | General Progress Note ---
Assessment/Plan Problem List: (1) Schizophrenia Qualifiers: Qualified Codes: F20.0 - Paranoid schizophrenia (2) Failure to thrive (3) Encounter for generalized patient complaints ICD Codes: Z00.8 - Encounter for other general examination SNOMED: 765172358 (4) Dehydration ICD Codes: E86.0 - Dehydration SNOMED: 29681521 (5) UTI (urinary tract infection) ICD Codes: N39.0 - Urinary tract infection, site not specified SNOMED: 20415658 Qualifiers: Qualified Codes: N39.0 - Urinary tract infection, site not specified (6) Fever ICD Codes: R50.9 - Fever, unspecified SNOMED: 420118558 Qualifiers: Qualified Codes: R50.9 - Fever, unspecified Status: doing well, stable Assessment/Plan: Discharge planning underway Subjective Date patient seen: Aug 04, 2019 Time patient seen: 23:45 ROS Limited/Unobtainable: Yes Constitutional: Reports: weakness HEENT: Reports: no symptoms Cardiovascular: Reports: no symptoms Respiratory: Reports: SOB with excertion Gastrointestinal/Abdominal: Reports: no symptoms Genitourinary: Reports: no symptoms Neurologic/Psychiatric: Reports: no symptoms Endocrine: Reports: no symptoms Hematologic/Lymphatic: Reports: no symptoms Allergies: Coded Allergies: PENICILLINS (Verified Allergy, Mild, 06/13/13) Objective Last 24 Hour Vital Signs Date Time Temp Pulse Resp B/P (MAP) Pulse Ox O2 Delivery O2 Flow Rate FiO2 08/05/19 00:00 98.4 93 20 121/60 (80) 94 08/04/19 21:00 Room Air 08/04/19 20:00 97.7 95 20 125/70 (88) 95 08/04/19 16:00 98.7 110 20 131/77 (95) 98 08/04/19 09:00 Room Air 08/04/19 08:00 98.3 100 21 122/88 (99) 97 Intake and Output 08/04/19 08/05/19 19:00 07:00 Intake Total 145 ml Balance 145 ml Free Water 100 ml Tube Feeding 45 ml # Voids 1 # Bowel Movements 1 Height (Feet): 5 Height (Inches): 1.00 Weight (Pounds): 113 General Appearance: WD/WN EENT: PERRL/EOMI Neck: non-tender Cardiovascular: normal peripheral pulses, normal rate, regular rhythm, no gallop/murmur Respiratory/Chest: chest wall non-tender Abdomen: normal bowel sounds, non tender, soft Extremities: normal range of motion, non-tender Neurologic: no motor/sensory deficits, alert, responsive Skin: warm/dry Isaias Christopher MD Aug 05, 2019 04:28
[2019-08-05 08:00] VITALS: BP 97/76
--- NOTE | 2019-08-05 08:05 | NUR ---
HAND-OFF: Report given to LINDA Gaines.
[2019-08-05] MEDS: OLANZapine 2.5mg tab GT SCH ×2 (10:24→17:17)
[2019-08-05] MEDS: Docusate 100mg/10ml Liq GT SCH ×2 (10:24→17:17)
[2019-08-05] MEDS: Heparin 5000 units/ml inj SUBQ SCH ×2 (10:25→21:40)
[2019-08-05 12:00] VITALS: BP 110/73
--- NOTE | 2019-08-05 15:13 | NUR ---
NURSE NOTES: PATIENT REMAINS STABLE AND COMBATIVE AT TIMES. ATTEMPTED Q2H TO REDIRECT PATIENT WITH PLASTERER ROUGH BUT IS CONFUSED. STILL REQUIRES RESTRAINTS FOR SAFETY. BED IN LOW AND LOCKED POSITION. CALL LIGHT WITHIN REACH. TURNED Q2H.
[2019-08-05 16:00] VITALS: BP 114/62
--- NOTE | 2019-08-05 19:11 | NUR ---
HAND-OFF: Report given to JOSE SALES RN.
--- NOTE | 2019-08-05 19:15 | NUR ---
NURSE NOTES: Pt. received from LINDA Gaines. Pt. AAOx1, no indications of SOB or respiratory distress, no pain noted. Bilateral soft wrist restraints on with movement and sensation intact,pulses palpable. IV access ELIGIO 22g intact and patent; saline locked. Gtube running Glucerna 1.5 @ 45cc/hr. Head of bed elevated, bed low and locked, side rails x3 up, bed alarm active, and call light in reach. Will continue to monitor.
[2019-08-05 20:00] VITALS: BP 103/76
[2019-08-06] VITALS: BP 118/71
[2019-08-06] MEDS: NovoLOG Insulin Flexpen SUBQ SCH ×4 (01:03→18:00)
--- NOTE | 2019-08-06 03:03 | NUR ---
NURSE NOTES: Discussed with Dr. Christopher discharge planning. Dr. Christopher has cleared patient and intends for pt. to return to [facility].
--- NOTE | 2019-08-06 03:05 | General Progress Note ---
Assessment/Plan Problem List: (1) Schizophrenia Qualifiers: Qualified Codes: F20.0 - Paranoid schizophrenia (2) Failure to thrive (3) Encounter for generalized patient complaints ICD Codes: Z00.8 - Encounter for other general examination SNOMED: 443584294 (4) Dehydration ICD Codes: E86.0 - Dehydration SNOMED: 36263149 (5) UTI (urinary tract infection) ICD Codes: N39.0 - Urinary tract infection, site not specified SNOMED: 42310940 Qualifiers: Qualified Codes: N39.0 - Urinary tract infection, site not specified (6) Fever ICD Codes: R50.9 - Fever, unspecified SNOMED: 066560062 Qualifiers: Qualified Codes: R50.9 - Fever, unspecified Status: doing well, stable, tolerating diet Assessment/Plan: Discharge planning underway Subjective Date patient seen: Aug 05, 2019 Time patient seen: 22:00 ROS Limited/Unobtainable: Yes Constitutional: Reports: weakness HEENT: Reports: no symptoms Cardiovascular: Reports: no symptoms Respiratory: Reports: SOB with excertion Gastrointestinal/Abdominal: Reports: no symptoms Genitourinary: Reports: no symptoms Neurologic/Psychiatric: Reports: no symptoms Endocrine: Reports: no symptoms Allergies: Coded Allergies: PENICILLINS (Verified Allergy, Mild, 06/13/13) Objective Last 24 Hour Vital Signs Date Time Temp Pulse Resp B/P (MAP) Pulse Ox O2 Delivery O2 Flow Rate FiO2 08/06/19 00:00 98.4 116 20 118/71 (87) 93 08/05/19 21:00 Room Air 08/05/19 20:00 100.0 117 18 103/76 (85) 94 08/05/19 16:00 98.4 81 17 114/62 (79) 95 08/05/19 12:00 98.6 89 18 110/73 (85) 95 08/05/19 09:00 Room Air 08/05/19 08:00 98.0 93 18 97/76 (83) 93 08/05/19 04:00 98.6 86 20 125/82 (96) 97 Intake and Output 08/05/19 08/06/19 19:00 07:00 Intake Total 845 ml Balance 845 ml Free Water 200 ml IV Total 150 ml Tube Feeding 495 ml # Voids 1 Height (Feet): 5 Height (Inches): 1.00 Weight (Pounds): 113 General Appearance: no apparent distress EENT: PERRL/EOMI Neck: non-tender Cardiovascular: normal peripheral pulses Respiratory/Chest: chest wall non-tender Abdomen: normal bowel sounds, non tender Extremities: normal range of motion Neurologic: abnormal gait, alert Skin: normal pigmentation Isaias Christopher MD Aug 06, 2019 03:05
[2019-08-06 04:00] VITALS: BP 122/77
--- NOTE | 2019-08-06 05:21 | NUR ---
NURSE NOTES: Attempted to draw AM labs. Pt. hard stick, violent, and resisting attempts. Charge nurse aware, will continue to monitor.
--- NOTE | 2019-08-06 07:25 | NUR ---
HAND-OFF: Report given to LINDA Lee.
--- NOTE | 2019-08-06 07:46 | NUR ---
NURSE NOTES: made am rounds, pt is in the bed asleep. no grimacing for any pain and discomfort noted. respiration is even and unlabored on room air. no coughing noted at this time. GTF is inplace and infusing. HOB elevated. call light is placed within reach.
[2019-08-06 08:00] VITALS: BP 137/74
[2019-08-06 09:12] LABS: BASOPHILS % (AUTO) 1.1 % (0.0-2.0); EOSINOPHILS % (AUTO) 3.3 % (0.0-3.0); HEMATOCRIT 34.1 % (37.0-47.0); HEMOGLOBIN 11.9 G/DL (12.0-16.0); LYMPHOCYTES % (AUTO) 30.7 % (20.0-45.0); MEAN CORPUSCULAR VOLUME 87 FL (80-99); MONOCYTES % (AUTO) 8.3 % (1.0-10.0); NEUTROPHILS % (AUTO) 56.6 % (45.0-75.0); PLATELET COUNT 562 K/UL (150-450); RED BLOOD COUNT 3.93 M/UL (4.20-5.40); RED CELL DISTRIBUTION WIDTH 11.1 % (11.6-14.8); WHITE BLOOD COUNT 11.2 K/UL (4.8-10.8)
[2019-08-06 09:57] LABS: ALANINE AMINOTRANSFERASE 48 U/L (12-78); ALBUMIN 2.8 G/DL (3.4-5.0); ALBUMIN/GLOBULIN RATIO 0.6 (1.0-2.7); ALKALINE PHOSPHATASE 68 U/L (46-116); ANION GAP 10 mmol/L (5-15); ASPARTATE AMINO TRANSFERASE 33 U/L (15-37); BILIRUBIN,TOTAL 0.2 MG/DL (0.2-1.0); BLOOD UREA NITROGEN 49 mg/dL (7-18); CALCIUM 9.5 MG/DL (8.5-10.1); CARBON DIOXIDE 26 MMOL/L (21-32); CHLORIDE 108 MMOL/L (98-107); CREATININE 0.9 MG/DL (0.55-1.30); SODIUM 144 MMOL/L (136-145)
[2019-08-06] MEDS: Docusate 100mg/10ml Liq GT SCH ×2 (10:39→18:37)
[2019-08-06] MEDS: OLANZapine 2.5mg tab GT SCH ×2 (10:39→18:38)
[2019-08-06] MEDS: Heparin 5000 units/ml inj SUBQ SCH ×2 (10:44→21:00)
[2019-08-06 12:00] VITALS: BP 130/80
--- NOTE | 2019-08-06 12:06 | NUR ---
NURSE NOTES: pt refuses blood sugar check, combative and attempting to scratch nurse.
--- NOTE | 2019-08-06 13:01 | NUR ---
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 * Increased kcal/prot needs R/T wound healing as evidenced by admitted w/ non-blanching erythema at sacrum and BL heels, and partial thickness wound at lateral R foot. CURRENT TF:Glucerna 1.5 @ 45ml/hr x 22 hrs ENTERAL NUTRITION RECOMMENDATIONS: Glucerna 1.2 @ 55ml/hr x 22 hrs to provide 1210ml, 1452kcal, 73g prot, 974ml free water * Maintain current TF- meets 100% est kcal/prot needs * Hold 1 hr before and after Synthroid med * HOB over 30 degrees/ water flush of 130ml q 6 hrs -------- WHILE GLUCERNA 1.2 LOW IN STOCK -> Maintain current Glucerna 1.5 @ 45ml/hr x 22 hrs to provide 990ml, 1485kcal, 82g prot, 751ml free water, 132g carbs per day ADDITIONAL RECOMMENDATIONS: 1) Per SNF: H T=60" GY=124jhr as of 07/13/19 2) Monitor BGs closely for hypoglycemia (hypoglycemic x 1 07/28) 3) Check lytes daily, replete as needed 4) Wound healing: Add vit C 250mgQD + John BID 5) OUT AND OUT CIGAR MAKER HAND eval for oral gral if appropriate -> pt on mech soft w/ thin @ lunch for oral grat @ SNF 6) Rec long acting insulin for improved BG control
--- NOTE | 2019-08-06 13:11 | NUR ---
DISCHARGE PLANNING PATIENT REFERRED BACK TO [facility] T: [phone] JANIYA WILL CALL WITH BED AVAILABILITY
--- NOTE | 2019-08-06 15:37 | NUR ---
*-* INSURANCE *-* ALL AVAILABLE CLINICALS HAVE BEEN FAXED TO: ANJALI P:[phone] ext [phone] F: [phone] Tel Jhony for D/C [phone]
[2019-08-06 16:00] VITALS: BP 100/82
--- NOTE | 2019-08-06 17:46 | NUR ---
*-* DISCHARGE PLANNED *-* PATIENT HAS BEEN ACCEPTED AND WILL BE [facility] TO: [facility] P: [phone] FOR NURSE TO NURSE REPORT ROOM# 214.C [facility] SET FOR 6:45PM S/W BRYCE [id number]
--- NOTE | 2019-08-06 19:45 | NUR ---
HAND-OFF: Report given to john.
[2019-08-06 20:00] VITALS: BP 113/59
--- NOTE | 2019-08-06 21:30 | NUR ---
NURSE NOTES: Patient discharged to [facility] in stable condition via gurney with 2 ambulance personnels. VSS. Belongings brought with patient. ID band removed. IV line removed and restraints removed. Remained free from injury.
--- NOTE | 2019-08-07 11:31 | NUR ---
*-* NO DISCHARGE SUMMARY INT HE SYSTEM UNABLE TO SEND TO INS CO. *-*
--- NOTE | 2019-08-07 12:40 | Discharge Summary ---
Discharge Summary Discharge Summary _ DATE OF ADMISSION: 07/29/2019 DATE OF DISCHARGE: 08/06/2019 DISCHARGED BY: Dr Christopher REASON FOR ADMISSION: 68 years old female, resident of [facility] facility, with past medical history of diabetes mellitus, seizure disorder, osteoarthritis, paranoid schizophrenia, was sent for evaluation due to fever for 1 day. No reported cough. No chest pain or shortness of breath. Upon arrival patient was agitated and combative. In triage she was febrile with temperature 102. She was also tachycardic. Pulse oximetry was stable on room air. Laboratory work-up revealed WBC 4.9, stable hemoglobin and hematocrit. Platelet count 126. Urinalysis revealed many bacteria and borderline pyuria, +1 leukocyte esterase , positive nitrite, +2 protein. Lactic acid 1.5. BUN 22, creatinine 1.0. Glucose 85. Troponin negative. pro BNP 116. EKG revealed sinus tachycardia , no acute ischemic changes. Albumin 2.9. Chest x-ray demonstrated prominent perihilar ground-glass haziness and increased interstitial markings in bilateral lungs, likely representing edema versus pneumonia. Influenza swab test was negative. Patient was swabbed for COVID 19. Patient pancultured , started on empiric antibiotic , received antipyretic and admitted for further management. HOSPITAL COURSE: Patient admitted and was kept on isolation. Patient started on empiric antibiotics. SARS CoV-2 by PCR came back detected. Andrae was continued to be on isolation. Blood culture were negative. Urine culture revealed Klebsiella pneumonia. DVT prophylaxis provided. Psychiatric medication continued. Blood sugar was managed with glyburide. Sliding scale of insulin was on board as needed. Renal parameters and electrolytes were closely monitored. Hyperkalemia treated ; potassium stable prior to discharge. Fevers resolved . Supportive care provided . Patient clinically stabilized and was ready for discharge back to [facility] facility /[facility] for continuation of care. FINAL DIAGNOSES: Confirmed COVID-19 infection Klebsiella UTI Fevers -resolved Diabetes mellitus Dehydration Schizophrenia Failure to thrive DISCHARGE MEDICATIONS: See Medication Reconciliation list. DISCHARGE INSTRUCTIONS: Patient was discharged to the [facility] facility. Follow up with medical doctor at the facility. I have been assigned to dictate discharge summary for this account. I was not involved in the patient's management. Yael Lopez NP Aug 07, 2019 12:40
--- NOTE | 2019-08-07 15:52 | NUR ---
*-* INSURANCE *-* DISCHARGE SUMMARY HAS BEEN FAXED TO: ANJALI P:[phone] ext [phone] F: [phone] Tel Jhony for D/C [phone]
--- NOTE | 2019-08-07 20:44 | General Progress Note ---
Assessment/Plan Problem List: (1) Schizophrenia Qualifiers: Qualified Codes: F20.0 - Paranoid schizophrenia (2) Failure to thrive (3) Encounter for generalized patient complaints ICD Codes: Z00.8 - Encounter for other general examination SNOMED: 212932917 (4) Dehydration ICD Codes: E86.0 - Dehydration SNOMED: 53489258 (5) UTI (urinary tract infection) ICD Codes: N39.0 - Urinary tract infection, site not specified SNOMED: 14514766 Qualifiers: Qualified Codes: N39.0 - Urinary tract infection, site not specified (6) Fever ICD Codes: R50.9 - Fever, unspecified SNOMED: 117601026 Qualifiers: Qualified Codes: R50.9 - Fever, unspecified Status: doing well, stable, tolerating diet Assessment/Plan: Discharge planning underway Subjective Date patient seen: Aug 06, 2019 Time patient seen: 11:30 ROS Limited/Unobtainable: Yes Constitutional: Reports: weakness HEENT: Reports: no symptoms Cardiovascular: Reports: no symptoms Respiratory: Reports: no symptoms Gastrointestinal/Abdominal: Reports: no symptoms Genitourinary: Reports: no symptoms Neurologic/Psychiatric: Reports: depressed Endocrine: Reports: no symptoms Hematologic/Lymphatic: Reports: no symptoms Allergies: Coded Allergies: PENICILLINS (Verified Allergy, Mild, 06/13/13) Objective Intake and Output 08/06/19 08/07/19 19:00 07:00 Intake Total 345 ml Balance 345 ml Free Water 300 ml Tube Feeding 45 ml Height (Feet): 5 Height (Inches): 1.00 Weight (Pounds): 113 General Appearance: no apparent distress EENT: PERRL/EOMI Neck: non-tender Cardiovascular: normal peripheral pulses, normal rate Respiratory/Chest: chest wall non-tender, lungs clear Abdomen: normal bowel sounds Pelvis: normal external exam Extremities: non-tender Neurologic: no motor/sensory deficits Skin: normal pigmentation Isaias Christopher MD Aug 07, 2019 20:44
== END 2019-08-06 21:30 | DRG 137 ==
LOC: EDUNIT# 07:09 → EDBD 07:09 → EMR 08:56 → EDBEDREQ 10:53 → 4E 11:27
DX: U07.1 COVID-19 (principal); N39.0 Urinary tract infection, site not specified; F20.9 Schizophrenia, unspecified; E11.9 Type 2 diabetes mellitus without complications; R62.7 Adult failure to thrive; Z88.0 Allergy status to penicillin; B96.1 Klebsiella pneumoniae [K. pneumoniae] as the cause of diseases classified elsewhere; E86.0 Dehydration
CPT/HCPCS: 36415; 71045; 80053; 81003; 82550; 82553; 82962; 83605; 83880; 84132; 84484; 85007; 85025; 86710; 87040; 87081; 87086; 87181; 87635; 93005; 96361; 96365; 96372; 99285; J1815; J7030